=== PATIENT | female | born 1940 | race Caucasian/White ===

== ENCOUNTER 2023-10-31 10:59 | Outpatient (AMB) | payer BC, SELFPAY ==
--- NOTE | 2023-10-31 11:01 | A.OFFPC_ITS ---
Vital Signs 10/31/23 11:13 Height 5 ft 7 in Weight 143 lb 8 oz BMI 22.5 BP 124/58 L Blood Pressure Location Lt brachial Position Sitting Respiration 12 Pulse 58 Pulse Source Pulse Oximeter Temp 97.3 F Temp Source Oral Pulse Oximetry (%) 95 Oxygen Delivery Method Room Air Intake Visit Reasons: Diarrhea and Fuzzy Head/Mind Intake Note: patient here for new patient visit transferring from [facility] c/o Diarrhea. [employer] Required: No Is last menstrual period known: No Post menopausal: No Patient : No Allergies No Known Allergies Allergy (Verified 10/31/23 11:05) Medication List - Last Reconciled 10/31/23 by Eladia Haji PA-C amlodipine 5 mg PO DAILY donepezil 10 mg PO DAILY escitalopram oxalate 20 mg PO DAILY losartan 50 mg PO DAILY rosuvastatin 5 mg PO DAILY Tobacco use date assessed: 10/31/23 Fall risk assessment: No Falls in past year Last assessed Fall Risk: 10/31/23 Dental Screening Dental Screen Date: 10/31/23 Did you have a dental visit in the last 12 months?: Yes Did you have a dental problem in the last 6 months where you did not have access to dental care?: No Was dental information given to patient?: Patient has dentist HPI Diarrhea and Fuzzy Head/Mind HPI Details Patient is an 83-year-old female with a significant past medical history of hypertension, anxiety, depression, insomnia, hyperlipidemia and dementia [facility]. She was last seen by myself last year at [facility] in April. She is accompanied today by her son and her daughter is present on the phone. GI: She was seen over the winter with complaints of diarrhea. She went to that appointment by herself and normally comes to doctor's appointments with her son. She did have a CT of her abdomen and pelvis at that time which showed sigmoid diverticulosis without evidence of diverticulitis. Her daughter states that the patient is experiencing diarrhea anytime she eats food. Patient states it is occurring about 3-4 x a day . She does have a history of IBS but states that this feels a lot worse. She has had diarrhea on and off for most of her life but never like this. It has been going on now for about 6 or 7 months. She has not changed her diet. Denies any use of antibiotics or travel prior to symptoms starting. This affects her quality of life because she is unable to leave the house. She takes Imodium which does seem to help somewhat. No weight changes. No blood in the stool or mucus in the stool. No nausea, vomiting or change in appetite. No fevers or chills. No pain in the abdomen. She does get cramping associated with the diarrhea. No incontinence. Last colonoscopy she believes it was at the age of 71. Neuro: She is on Aricept 10 mg. 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 She is frustrated because she feels ?fuzzy?. She has been a very active, independent woman for her life and this has become very frustrating to her that she can not recall certain things. Her family would like her to have a 2nd opinion. She has not had any gait changes. She is not falling. She has been complaining of headaches since June. She has been taking Tylenol almost every day because of the headaches. They do not wake her up from sleep and she is sleeping okay but they occur as the day goes on. It is across her head on both sides. She does intermittently get vision changes in his not sure if it is related to the headaches are not. States that she will get black spots in her vision. It will last long. She has not seen the eye doctor in over her son is going to book her an appointment. She denies any numbness, tingling or weakness. She still walking daily and [place] much as she can. -she is unsure of the diagnosis of demen tia because when she was diagnosed with this she did have a lot going on mentally. She had a lot of losses in her life and was relatively isolated at her house. She is normally social and most of her friends live in [place]. Psych: She is on Lexapro 20 mg and does feel that this is helpful with some stress. CV: Her blood pressure today in the office is 124/58. She is currently on amlodipine 5 mg and losartan 50 mg. Cholesterol is managed with Crestor 5 mg. Derm: She states that she has poison darius spreading up her arms and on her legs. She was doing yd work a week ago when she developed this. [facility] Medical History (Updated 10/31/23 @ 13:41 by Eladia Haji PA-C) IBS (irritable bowel syndrome) Incontinence High cholesterol HTN (hypertension) Surgical History (Updated 10/31/23 @ 11:21 by Alyce Raygoza) H/O: hysterectomy Family History (Updated 10/31/23 @ 11:22 by Alyce Raygoza) Maternal Grandfather FH: mental illness Mother High blood pressure High cholesterol Father High blood pressure High cholesterol Social History Housing: House Patient Tobacco Use Status: Never used Tobacco e-Cigarette/Vaping Use: Never Used Second Hand Smoke Exposure: No service: No Current occupational status: retired Current occupational exposures/hazards: No Cognitive needs: No Hearing needs: No Vision needs: No Questionnaire PHQ-9 Over the last 2 weeks, how often have you been bothered by any of the following problems? 1. Little interest or pleasure in doing things: not at all 2. Feeling down, depressed, or hopeless: not at all 3. Trouble falling or staying asleep, or sleeping too much: not at all 4. Feeling tired or having little energy: not at all 5. Poor appetite or overeating: not at all 6. Feeling bad about yourself - or that you are a failure or have let yourself or your family down: not at all 7. Trouble concentrating on things, such as reading the newspaper or watching television: not at all 8. Moving or speaking so slowly that other people could have noticed. Or the opposite - being so fidgety or restless that you have been moving around a lot more than usual: not at all 9. Thoughts that you would be better off or of hurting yourself in some way: not at all Total score: 0 Depression Screening Done: Yes 58243 - PHQ-9 Billing: Yes Source: Developed by Drs. Agustin Michaud, Sheela Black, Leoncio Tee and colleagues, with an educational dorene from [employer]. Thrive Questionnaire Date Thrive assessed: 10/31/23 I am a: Patient What is your living situation today?: I have a steady place to live Within the past 12 months, did the food you bought not last and you didn't have the money to get more?: Never true Within the past 12 months, did you worry whether your food would run out before you got money to buy more?: Never true Do you have trouble paying for medicines?: No Do you have trouble getting transportation to medical appointments?: No Do you have trouble paying your heating and electricity bill?: No Do you have trouble taking care of your child, family member or friend?: No Do you have trouble with day-to-day activities such as bathing, preparing meals, shopping, managing finances, etc.?: No Are you currently unemployed and looking for a job?: No Are you interested in more education?: No Please select the resources that you would like help with: None Currently or been in a relationship where the following occur: No concerns reported THRIVE Score: 0 AUDIT C Alcohol Use Questionnaire (AUDIT-C) 1. How often do you have a drink containing alcohol?: 2-3 times a week 2. How many drinks containing alcohol do you have on a typical day when you are drinking?: 1 or 2 3. How often do you have six or more drinks on one occasion?: Never Total Score: 3 Score Reviewed/Action Taken: Yes HERLINDA-7 AMB Questionnaire HERLINDA-7 Date HERLINDA - 7 assessed: 10/31/23 Feeling nervous, anxious, or on edge: 0 = Not at all Not being able to stop or control worryin = Not at all Worrying too much about different things: 0 = Not at all Trouble relaxin = Several days Being so restless that it is hard to sit still: 0 = Not at all Becoming easily annoyed or irritable: 0 = Not at all Feeling afraid as if something awful might happen: 0 = Not at all Total HERLINDA-7 score (0-4 normal; 5-9 mild; 10-14 moderate; 15-21 severe): 1 Source: Developed by Drs. Agustin Michaud, Sheela Black, Leoncio Tee and colleagues, with an educational dorene from [employer]. HERLINDA-7 Assessment Billing HERLINDA-7 Assessment Tool: HERLINDA-7 Assessment 77675 Physical exam (Primary Care) Vital Signs: Last Vital Signs Temp 97.3 F 10/31/23 11:13 Pulse 58 10/31/23 11:13 Resp 12 10/31/23 11:13 BP 124/58 L 10/31/23 11:13 Pulse Ox 95 10/31/23 11:13 Oxygen Delivery Method Room Air 10/31/23 11:13 BMI result Body Mass Index 22.5 Tobacco/Smoking Status: Tobacco use Status Tobacco use date assessed 10/31/23 10/31/23 11:12 Patient Tobacco Use Status Never used Tobacco 10/31/23 11:12 e-Cigarette/Vaping Use Never Used 10/31/23 11:12 Currently or been in a relationship where the following occur: No concerns reported Const Orientation/consciousness: patient oriented x3 HENMT Ears: hearing grossly normal bilaterally Neck Thyroid: Thyroid normal Lymphatic: no lymphadenopathy noted Resp Auscultation: clear to auscultation bilaterally Cardio Rate: regular rate Rhythm: regular rhythm Heart sounds: S1 normal heart sound present and S2 normal heart sound present GI Inspection: Yes normal to inspection Palpation (GI): Soft to palpation and Other GI palpation findings present (nontender, no cva tenderness) Auscultation: normoactive bowel sounds Rectal Exam - Female: deferred Skin General skin exam: no rashes or lesions noted Neuro General: patient oriented x3, gait normal and no focal motor deficits Assessment and Plan Assessment & Plan (1) HTN (hypertension): Code(s): I10 - Essential (primary) hypertension Qualifiers: Hypertension type: primary hypertension Qualified Code(s): I10 - Essential (primary) hypertension Plan: Continue current regimen (2) Hyperlipidemia: Code(s): E78.5 - Hyperlipidemia, unspecified Qualifiers: Hyperlipidemia type: mixed hyperlipidemia Qualified Code(s): E78.2 - Mixed hyperlipidemia Plan: Continue current regimen (3) Anxiety with depression: Code(s): F41.8 - Other specified anxiety disorders Plan: Controlled. Continue current regimen (4) Insomnia: Code(s): G47.00 - Insomnia, unspecified Qualifiers: Insomnia type: unspecified Qualified Code(s): G47.00 - Insomnia, unspecified Plan: We will start amitriptyline. Discussed risks and benefits and adverse effects of this medication. Follow up in 3-4 weeks to be reassessed. Sooner if needed. (5) Memory changes: Code(s): R41.3 - Other amnesia Plan: We will refer to [facility] for a 2nd opinion. Continue Aricept. Has a di agnosis of mixed dementia but does not feel that this is necessarily true. She did have labs, MRI and a did see a therapist to help tease out possible stress related memory changes at time of dx. Labs ordered today. We will follow up pending test results. (6) New persistent daily headache: Code(s): G44.52 - New daily persistent headache (NDPH) Plan: MRI ordered. Advised to see Ophthalmology. Amitriptyline ordered (7) Diarrhea: Code(s): R19.7 - Diarrhea, unspecified Plan: advised possible elimination diet. Labs ordered today. Abdominal exam is benign. Reviewed CT from [facility]. I have referred her to Gastroenterology. Advised to replace her electrolytes with Pedialyte 1 x daily. (8) Vision changes: Code(s): H53.9 - Unspecified visual disturbance Plan: Advised to see Ophthalmology. Carotid ultrasound ordered. Plan 70 minutes was spent in [id number] time today discussing the list of her concerns, ongoing medical conditions and plan. Orders: Orders Complete Blood Count Auto Diff Today E78.5 - Hyperlipidemia, unspecified, F03.90 - Unspecified dementia, unspecified severity, without behavioral disturbance, psychotic disturbance, mood disturbance, and anxiety, F41.8 - Other specified anxiety disorders, G47.00 - Insomnia, unspecified, I10 - Essential (primary) hypertension Lipid Panel Today E78.5 - Hyperlipidemia, unspecified, F03.90 - Unspecified dementia, unspecified severity, without behavioral disturbance, psychotic disturbance, mood disturbance, and anxiety, F41.8 - Other specified anxiety disorders, G47.00 - Insomnia, unspecified, I10 - Essential (primary) hypertension TSH reflex Free T4 Today E78.5 - Hyperlipidemia, unspecified, F03.90 - Unspecified dementia, unspecified severity, without behavioral disturbance, psychotic disturbance, mood disturbance, and anxiety, F41.8 - Other specified anxiety disorders, G47.00 - Insomnia, unspecified, I10 - Essential (primary) hypertension MR head/brain wo con Today G44.52 - New daily persistent headache (NDPH), R41.3 - Other amnesia C Reactive Protein Today R19.7 - Diarrhea, unspecified OBSX3 Today R19.7 - Diarrhea, unspecified US carotid duplex BI Today G44.52 - New daily persistent headache (NDPH), H53.9 - Unspecified visual disturbance, R41.3 - Other amnesia CDiff Gene PCR Today R19.7 - Diarrhea, unspecified [facility]. Panel Fast Today E78.5 - Hyperlipidemia, unspecified, F03.90 - Unspecified dementia, unspecified severity, without behavioral disturbance, psychotic disturbance, mood disturbance, and anxiety, F41.8 - Other specified anxiety disorders, G47.00 - Insomnia, unspecified, I10 - Essential (primary) hypertension UA CC w/rflx Micro + Cult Today E78.5 - Hyperlipidemia, unspecified, F03.90 - Unspecified dementia, unspecified severity, without behavioral disturbance, psychotic disturbance, mood disturbance, and anxiety, F41.8 - Other specified anxiety disorders, G47.00 - Insomnia, unspecified, I10 - Essential (primary) hypertension Lyme IgG/IgM w/reflex to WB Today E78.5 - Hyperlipidemia, unspecified, F03.90 - Unspecified dementia, unspecified severity, without behavioral disturbance, psychotic disturbance, mood disturbance, and anxiety, F41.8 - Other specified anxiety disorders, G47.00 - Insomnia, unspecified, I10 - Essential (primary) hypertension Vitamin B12 and Folate Today E78.5 - Hyperlipidemia, unspecified, F03.90 - Unspecified dementia, unspecified severity, without behavioral disturbance, psychotic disturbance, mood disturbance, and anxiety, F41.8 - Other specified anxiety disorders, G47.00 - Insomnia, unspecified, I10 - Essential (primary) hypertension Magnesium Today E78.5 - Hyperlipidemia, unspecified, F03.90 - Unspecified dementia, unspecified severity, without behavioral disturbance, psychotic disturbance, mood disturbance, and anxiety, F41.8 - Other specified anxiety disorders, G47.00 - Insomnia, unspecified, I10 - Essential (primary) hypertension Calprotectin, Fecal Today R19.7 - Diarrhea, unspecified Erythrocyte Sedimentation Rate Today R19.7 - Diarrhea, unspecified Referrals Gastroenterology Referral R19.7 - Diarrhea, unspecified Neurology Referral G44.52 - New daily persistent headache (NDPH), R41.3 - Other amnesia Medications: New triamcinolone acetonide 0.025% 1 appl topical BID 14 days 80 grams 2RF amitriptyline 10 mg PO BEDTIME 90 tabs 0RF methylprednisolone (Medrol (Nav)) PO PER PKG DIR for 6 days 21 ea 0RF Coding Level of Care Code Est Pt Level 5 (48684) Complex EM visit Add On G2211 Diagnoses Primary hypertension I10 Hypertension type: primary hypertension Mixed hyperlipidemia E78.2 Hyperlipidemia type: mixed hyperlipidemia Anxiety with depression F41.8 Insomnia, unspecified type G47.00 Insomnia type: unspecified Memory changes R41.3 New persistent daily headache G44.52 Diarrhea R19.7 Vision changes H53.9 Additional Codes HERLINDA-7 Assessment Billing - HERLINDA-7 Assessment Tool: HERLINDA-7 Assessment [id number] ([id number]) Time Spent (min) 70
[2023-10-31 11:13] VITALS: BP 124/58; PULSE 58; RESP 12; TEMP 36.3; O2SAT 95; BMI 22.5
== END 2023-10-31 12:09 | disposition home or self-care (01) ==
PROVIDERS: PCP Physician Assistant; Visit Provider Physician Assistant
DX: I10 Essential (primary) hypertension (principal); E78.2 Mixed hyperlipidemia; F41.8 Other specified anxiety disorders; G47.00 Insomnia, unspecified; R41.3 Other amnesia; G44.52 New daily persistent headache (NDPH); R19.7 Diarrhea, unspecified; H53.9 Unspecified visual disturbance
CPT/HCPCS: 99215

== ENCOUNTER 2023-10-31 12:39 | Outpatient (REF) | payer BC, SELFPAY ==
[2023-10-31 14:13] LABS: MANUAL DIFF FLAG NO
[2023-10-31 14:18] LABS: Appearance Urine Clear; Color Urine Yellow; Glucose Urine UA Negative (Negative); Leukocyte Esterase Urine Negative (Negative); Nitrite Urine Negative (Negative); PH 6.5 (5.0-9.0); Urine Blood Negative (Negative); Urine Ketones Negative (Negative); Urine Protein Negative (Neg-Trace)
[2023-10-31 14:25] LABS: Basophils Absolute Auto 0.1 X10*3/uL (0.0-0.2); Basophils Percent Auto 0.9 % (0-2); Eosinophils Absolute Auto 0.4 X10*3/uL (0.0-0.4); Eosinophils Percent Auto 5.5 % (0-4); Hemoglobin 13.3 g/dl (12.0-16.0); Imm Gran Abs Auto 0.02 X10*3/uL (0.00-0.03); Imm Gran Pct Auto 0.3 % (0.0-0.4); Lymphocytes Absolute Auto 1.5 X10*3/uL (1.2-4.9); Mean Corpuscular HGB Conc 33.3 g/dl (31.0-35.0); Mean Corpuscular Hemoglobin 30.2 pg (27.0-33.0); Mean Corpuscular Volume 90.7 fL (80.0-98.0); Mean Platelet Volume 9.7 fL (9.4-12.3); Monocytes Absolute Auto 0.7 X10*3/uL (0.1-1.2); Monocytes Percent Auto 8.5 % (2-11); Neutrophils Absolute Auto 5.1 x10*3/uL (2.0-8.3); Neutrophils Percent Auto 65.8 % (45-73); Platelet Count 359 X10*3/uL (160-400); Red Blood Count 4.41 X10*6/uL (4.20-5.50); Red Cell Distribution Width 12.5 % (11.0-16.0); White Blood Count 7.7 X10*3/uL (4.8-10.8)
[2023-10-31 14:57] LABS: Alanine Aminotransferase 23 U/L (0-31); Albumin Level 4.5 g/dL (3.5-5.0); Alkaline Phosphatase 78 U/L (39-117); Anion Gap 13 (12-20); Aspartate Amino Transferase 30 U/L (5-31); Bilirubin Total 0.8 mg/dL (0.0-1.0); Blood Urea Nitrogen 14 mg/dL (9-16); C Reactive Protein < 0.10 mg/dL (< or = 0.50); Carbon Dioxide 27 mmol/L (22-29); Chloride 99 mmol/L (96-108); Cholesterol 197 mg/dL (<200); Estimated Glomerular Filt Rate 52; Glucose Fasting 95 mg/dL (60-99); HDL Cholesterol 64 mg/dL (>40); LDL Cholesterol Calculated 99 mg/dL (<100); Magnesium 2.2 mg/dL (1.6-2.6); Potassium 4.2 mmol/L (3.3-5.1); Sodium 135 mmol/L (135-145); Total Protein 7.9 g/dL (6.5-8.0); Triglycerides 172 mg/dL (<150)
[2023-10-31 15:04] LABS: Erythrocyte Sedimentation Rate 12 MM/HR (0-20)
[2023-10-31 15:12] LABS: TSH reflex Free T4 2.71 uIU/mL (0.32-4.0)
[2023-10-31 15:27] LABS: Folate 11.9 ng/mL (> or = 4.0); Vitamin B12 932 pg/mL (200-900)
[2023-11-01 18:24] LABS: Lyme Abs Screen <0.90 index
== END 2023-10-31 12:40 | disposition home or self-care (01) ==
LOC: HO.WFDLDS 12:39
PROVIDERS: Visit Provider Physician Assistant
DX: G47.00 Insomnia, unspecified (principal); F41.8 Other specified anxiety disorders; F03.90 Unspecified dementia, unspecified severity, without behavioral disturbance, psychotic disturbance, mood disturbance, and anxiety; E78.5 Hyperlipidemia, unspecified; I10 Essential (primary) hypertension; R19.7 Diarrhea, unspecified
CPT/HCPCS: 36415; 80053; 80061; 81003; 82607; 82746; 83735; 84443; 85025; 85652; 86140; 86617; 86618

== ENCOUNTER 2023-11-12 17:25 | Outpatient (REF) | payer BC, SELFPAY ==
[2023-11-12 17:49] LABS: OBS Int Ctl Valid YES; OBS1 NEGATIVE (NEGATIVE)
[2023-11-12 18:24] LABS: CDiff Gene PCR NEGATIVE (Negative)
[2023-11-18 22:13] LABS: Calprotectin, Fecal 9 mcg/g
== END 2023-11-12 17:26 | disposition home or self-care (01) ==
LOC: HO.LNP 17:25
PROVIDERS: Visit Provider Physician Assistant
DX: R19.7 Diarrhea, unspecified (principal)
CPT/HCPCS: 82272; 83993; 87493

== ENCOUNTER 2023-11-14 11:17 | Outpatient (REF) | payer BC, SELFPAY ==
--- NOTE | ~2023-11-14 | US_ITS ---
EXAMINATION: US EXTRACRANIAL CAROTID DUPLEX, BILATERAL CLINICAL INFORMATION: Headaches COMPARISON: None available. TECHNIQUE: Real-time ultrasound and Doppler techniques (integrating B-mode 2-D vascular images, Doppler spectral analysis and color-flow Doppler imaging) were utilized to interrogate the extracranial carotid arteries, the vertebral arteries and proximal subclavian arteries bilaterally. The degree of stenosis is determined by criteria similar to NASCET. FINDINGS: Right Side: 1. There is mild atherosclerotic plaque seen in the bifurcation/proximal ICA region. 2. The common carotid artery PSV proximally is 85 cm/s and distally 67.6 cm/s. 3. The proximal internal carotid artery velocities are 54.2 cm/s systolic and 10.6 cm/s diastolic. 4. The proximal external carotid artery PSV is 79.2 cm/s. 5. The vertebral artery shows antegrade flow. 6. The subclavian artery waveforms are normal. Left Side: 1. There is no significant atherosclerotic plaque seen in the bifurcation/proximal ICA region. 2. The common carotid artery PSV proximally is 82.7 cm/s and distally 78.6 cm/s. 3. The proximal internal carotid artery velocities are 55.8 cm/s systolic and 11.4 cm/s diastolic. 4. The proximal external carotid artery PSV is 72.7 cm/s. 5. The vertebral artery shows antegrade flow. 6. The subclavian artery waveforms are normal. US/US carotid duplex BI IMPRESSION: 1. RIGHT: Minimal, non-hemodynamically significant stenosis of the proximal right internal carotid artery corresponding to a 0-49% stenosis by velocity criteria. 2. LEFT: Normal left internal carotid artery without atherosclerotic plaque or hemodynamically significant stenosis. Electronically signed by: Cooper Romero MD 11/18/2023 04:18 PM EDT
== END 2023-11-14 11:18 | disposition home or self-care (01) ==
LOC: HO.US 11:17
PROVIDERS: PCP Physician Assistant; Visit Provider Physician Assistant
DX: G44.52 New daily persistent headache (NDPH) (principal); H53.9 Unspecified visual disturbance; R41.3 Other amnesia; I65.21 Occlusion and stenosis of right carotid artery
CPT/HCPCS: 93880

== ENCOUNTER 2023-11-28 10:18 | Outpatient (AMB) | payer BC, SELFPAY ==
--- NOTE | 2023-11-28 10:20 | MHC.PC.OV ---
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 Neuro: Was diagnosed with dementia and is going for a 2nd opinion to [place] in February. She is currently on Aricept and an SSRI. She has been experiencing some headaches but does feel that they are better since starting the amitriptyline. Her MRI is scheduled for 12/03. Psych: Sleep is improved with the amitriptyline. She is still on the Lexapro 20 mg and feels that this is effective. CV: She is currently on losartan 50 mg, amlodipine 5 mg and her blood pressure today in the office is 126/60. Cholesterol is controlled with Crestor 5 mg. GI: Still experiences diarrhea. Labs were overall reassuring. Has an appointment with GI in December. Is using the Imodium as needed. [facility] Medical History (Updated 10/31/23 @ 13:41 by Eladia Haji PA-C) IBS (irritable bowel syndrome) Incontinence High cholesterol HTN (hypertension) Surgical History (Updated 10/31/23 @ 11:21 by Alyce Raygoza) H/O: hysterectomy Family History (Updated 10/31/23 @ 11:22 by Alyce Raygoza) Maternal Grandfather FH: mental illness Mother High blood pressure High cholesterol Father High blood pressure High cholesterol Social History Housing: House Patient Tobacco Use Status: Never used Tobacco e-Cigarette/Vaping Use: Never Used Second Hand Smoke Exposure: No service: No Current occupational status: retired Current occupational exposures/hazards: No Cognitive needs: No Hearing needs: No Vision needs: No Questionnaire PHQ-9 Over the last 2 weeks, how often have you been bothered by any of the following problems? 1. Little interest or pleasure in doing things: not at all 2. Feeling down, depressed, or hopeless: not at all 3. Trouble falling or staying asleep, or sleeping too much: not at all 4. Feeling tired or having little energy: not at all 5. Poor appetite or overeating: not at all 6. Feeling bad about yourself - or that you are a failure or have let yourself or your family down: not at all 7. Trouble concentrating on things, such as reading the newspaper or watching television: not at all 8. Moving or speaking so slowly that other people could have noticed. Or the opposite - being so fidgety or restless that you have been moving around a lot more than usual: not at all 9. Thoughts that you would be better off or of hurting yourself in some way: not at all Total score: 0 Source: Developed by Drs. Agustin Michaud, Sheela Black, Leoncio Tee and colleagues, with an educational dorene from [employer]. Thrive Questionnaire Date Thrive assessed: 10/31/23 I am a: Patient What is your living situation today?: I have a steady place to live Within the past 12 months, did the food you bought not last and you didn't have the money to get more?: Never true Within the past 12 months, did you worry whether your food would run out before you got money to buy more?: Never true Do you have trouble paying for medicines?: No Do you have trouble getting transportation to medical appointments?: No Do you have trouble paying your heating and electricity bill?: No Do you have trouble taking care of your child, family member or friend?: No Do you have trouble with day-to-day activities such as bathing, preparing meals, shopping, managing finances, etc.?: No Are you currently unemployed and looking for a job?: No Are you interested in more education?: No Please select the resources that you would like help with: None Currently or been in a relationship where the following occur: No concerns reported THRIVE Score: 0 AUDIT C Alcohol Use Questionnaire (AUDIT-C) 1. How often do you have a drink containing alcohol?: Never Total Score: 0 HERLINDA-7 AMB Questionnaire HERLINDA-7 Date HERLINDA - 7 assessed: 10/31/23 Feeling nervous, anxious, or on edge: 0 = Not at all Not being able to stop or control worryin = Not at all Worrying too much about different things: 0 = Not at all Trouble relaxin = Not at all Being so restless that it is hard to sit still: 0 = Not at all Becoming easily annoyed or irritable: 0 = Not at all Feeling afraid as if something awful might happen: 0 = Not at all Total HERLINDA-7 score (0-4 normal; 5-9 mild; 10-14 moderate; 15-21 severe): 0 Source: Developed by Drs. Agustin Michaud, Sheela Black, Leoncio Tee and colleagues, with an educational dorene from [employer]. Physical exam (Primary Care) Vital Signs: Last Vital Signs Pulse 87 11/28/23 10:29 Resp 14 11/28/23 10:29 BP 126/60 11/28/23 10:29 Pulse Ox 97 11/28/23 10:29 Oxygen Delivery Method Room Air 11/28/23 10:29 BMI result Body Mass Index 22.9 Tobacco/Smoking Status: Tobacco use Status Tobacco use date assessed 10/31/23 11/28/23 10:21 Patient Tobacco Use Status Never used Tobacco 11/28/23 10:21 e-Cigarette/Vaping Use Never Used 11/28/23 10:21 PHQ-9: PHQ-9 Score PHQ-9: Total score 0 11/28/23 10:21 Thrive Assessment: Date of Thrive Assessment Date Thrive assessed 10/31/23 11/28/23 10:21 Currently or been in a relationship where the following occur: No concerns reported Const Orientation/consciousness: patient oriented x3 HENMT Ears: hearing grossly normal bilaterally Neck Thyroid: Thyroid normal Lymphatic: no lymphadenopathy noted Resp Auscultation: clear to auscultation bilaterally Cardio Rate: regular rate Rhythm: regular rhythm Heart sounds: S1 normal heart sound present and S2 normal heart sound present GI Inspection: Yes normal to inspection Palpation (GI): Soft to palpation and Other GI palpation findings present (nontender, no cva tenderness) Auscultation: normoactive bowel sounds Rectal Exam - Female: deferred Skin General skin exam: no rashes or lesions noted Neuro General: patient oriented x3, gait normal and no focal motor deficits Assessment and Plan Assessment & Plan (1) Dementia: Code(s): F03.90 - Unspecified dementia, unspecified severity, without behavioral disturbance, psychotic disturbance, mood disturbance, and anxiety Plan: Continue on Aricept. Has follow up arranged in [place]. (2) HTN (hypertension): Code(s): I10 - Essential (primary) hypertension Qualifiers: Hypertension type: primary hypertension Qualified Code(s): I10 - Essential (primary) hypertension Plan: WNL. Continue current regimen (3) Anxiety with depression: Code(s): F41.8 - Other specified anxiety disorders Plan: Stable. Continue with the amitriptyline and Lexapro. (4) Diarrhea: Code(s): R19.7 - Diarrhea, unspecified Plan: Has an appointment with GI. Medications: New cetirizine (Zyrtec) 10 mg PO DAILY PRN 90 tabs 2RF allergy symptoms albuterol sulfate 90 mcg/actuation 2 puffs inhalation Q6H PRN 8.5 grams 1RF shortness of breath or wheezing Coding Level of Care Code Est Pt Level 4 (13228) Diagnoses Dementia F03.90 Primary hypertension I10 Hypertension type: primary hypertension Anxiety with depression F41.8 Diarrhea R19.7
[2023-11-28 10:29] VITALS: BP 126/60; PULSE 87; RESP 14; O2SAT 97; BMI 22.9
== END 2023-11-28 13:14 | disposition home or self-care (01) ==
PROVIDERS: PCP Physician Assistant; Visit Provider Physician Assistant
DX: F03.90 Unspecified dementia, unspecified severity, without behavioral disturbance, psychotic disturbance, mood disturbance, and anxiety (principal); I10 Essential (primary) hypertension; F41.8 Other specified anxiety disorders; R19.7 Diarrhea, unspecified

== ENCOUNTER → 2023-11-28 10:18 | Outpatient (BNVA) | payer BC, SELFPAY | PROVIDERS: PCP Physician Assistant; Visit Provider Physician Assistant | DX: F03.90 Unspecified dementia, unspecified severity, without behavioral disturbance, psychotic disturbance, mood disturbance, and anxiety (principal); I10 Essential (primary) hypertension; F41.8 Other specified anxiety disorders; R19.7 Diarrhea, unspecified; Z79.899 Other long term (current) drug therapy | CPT/HCPCS: 96127 ==

== ENCOUNTER 2023-12-04 07:54 | Outpatient (REF) | payer BC, SELFPAY ==
--- NOTE | ~2023-12-04 | MR_ITS ---
EXAMINATION: MR BRAIN WITHOUT CONTRAST CLINICAL INFORMATION: Analgesia COMPARISON: None available. TECHNIQUE: MRI of the brain was obtained using routine sequences without contrast. FINDINGS: Ventricles, sulci and cisterns are dilated. Numerous patchy and focal T2 hyperintense lesions are seen in bilateral frontal and parietal subcortical and deep white matters, right posterior temporal subcortical and deep white matter. No focal cerebral, brainstem or cerebellar lesions with abnormal signal can be seen. Diffusion weighted images show no abnormal regional decrease in diffusion. Normal flow voids of major intracerebral blood vessels are seen in the visualized portion. The pituitary gland is normal. Optic chiasm is not displaced. Cerebellar tonsils position is normal. A round T2 hyperintense polypoid mucosal lesion measuring 1.0 cm in diameter is seen attached to lower anterior wall of right maxillary sinus. MR/MR head/brain wo con IMPRESSION: 1. Age-related cerebral atrophy and ventriculomegaly. 2. Extensive bilateral frontal and parietal, right posterior temporal white matter lesions are present. Findings could, represent extensive ischemic white matter lesions due to microangiopathy or multifocal demyelinating disease or leukoencephalopathy. 3. No acute cerebral infarction is seen. 4. No evidence of space occupying mass lesion could be found. 5. No evidence of intracranial hemorrhage. 6. Anterior inferior right maxillary sinus mucous retention cyst or mucosal polyp is present. Electronically signed by: Migue Eli MD 01/01/2024 10:19 AM EDT
== END 2023-12-04 07:55 | disposition home or self-care (01) ==
LOC: HO.MRI 07:54
PROVIDERS: PCP Physician Assistant; Visit Provider Physician Assistant
DX: R41.3 Other amnesia (principal); G44.52 New daily persistent headache (NDPH)
CPT/HCPCS: 70551

== ENCOUNTER 2024-03-05 13:11 | Outpatient (AMB) | payer BC, SELFPAY ==
--- NOTE | 2024-03-05 11:55 | MHC.PC.OV ---
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: No Allergies No Known Allergies Allergy (Verified 03/05/24 13:17) Medication List - Last Reconciled 03/05/24 by Eladia Haji PA-C albuterol sulfate 90 mcg/actuation 2 puffs inhalation Q6H PRN amitriptyline 10 mg PO BEDTIME amlodipine 5 mg PO DAILY cetirizine (Zyrtec) 10 mg PO DAILY PRN donepezil 10 mg PO DAILY escitalopram oxalate 20 mg PO DAILY losartan 50 mg PO DAILY memantine (Namenda XR) , rosuvastatin 5 mg PO DAILY Tobacco use date assessed: 10/31/23 Dental Screening Dental Screen Date: 10/31/23 HPI BAKER BISCUIT // Est Care HPI Details Patient is an 83-year-old female who presents today for a follow up. No acute concerns today. Neuro: Was diagnosed with dementia and had a second opinion at [facility] (in [place]). She is currently on Aricept, recently started on namenda and an SSRI. She has been experiencing some headaches but does feel that they are better since starting the amitriptyline. Psych: Sleep is improved with the amitriptyline. She is still on the Lexapro 20 mg and feels that this is effective. CV: She is currently on losartan 50 mg, amlodipine 5 mg and her blood pressure today in the office is 122/60. Cholesterol is controlled with Crestor 5 mg. GI: Still experiences diarrhea. Labs were overall reassuring. Has an appointment with GI in December. Is using the Imodium as needed. Due for flu shot and will get this. [facility] Medical History (Updated 10/31/23 @ 13:41 by Eladia Haji PA-C) IBS (irritable bowel syndrome) Incontinence High cholesterol HTN (hypertension) Surgical History H/O: hysterectomy Family History Maternal Grandfather FH: mental illness Mother High blood pressure High cholesterol Father High blood pressure High cholesterol Social History (Updated 03/05/24 @ 13:23 by Cha Gifford CMA) Housing: House Alcohol intake: current Patient Tobacco Use Status: Never used Tobacco e-Cigarette/Vaping Use: Never Used Second Hand Smoke Exposure: No Use of substances other than those prescribed or required for medical reasons: No service: No Current occupational status: retired Current occupational exposures/hazards: No Cognitive needs: No Hearing needs: No Vision needs: No Questionnaire Thrive Questionnaire Date Thrive assessed: 10/31/23 HERLINDA-7 AMB Questionnaire HERLINDA-7 Date HERLINDA - 7 assessed: 10/31/23 Source: Developed by Drs. Agustin Michaud, Sheela Black, Leoncio Tee and colleagues, with an educational dorene from [employer]. Physical exam (Primary Care) Vital Signs: Last Vital Signs Pulse 68 03/05/24 13:22 BP 122/60 03/05/24 13:22 Pulse Ox 99 03/05/24 13:22 Oxygen Delivery Method Room Air 03/05/24 13:22 BMI result Body Mass Index 23.8 Tobacco/Smoking Status: Tobacco use Status Tobacco use date assessed 10/31/23 03/05/24 11:56 Patient Tobacco Use Status Never used Tobacco 03/05/24 13:23 e-Cigarette/Vaping Use Never Used 03/05/24 13:23 Thrive Assessment: Date of Thrive Assessment Date Thrive assessed 10/31/23 03/05/24 11:56 Const Orientation/consciousness: patient oriented x3 HENMT Ears: hearing grossly normal bilaterally Neck Thyroid: Thyroid normal Lymphatic: no lymphadenopathy noted Resp Auscultation: clear to auscultation bilaterally Cardio Rate: regular rate Rhythm: regular rhythm Heart sounds: S1 normal heart sound present and S2 normal heart sound present GI Inspection: Yes normal to inspection Palpation (GI): Soft to palpation and Other GI palpation findings present (nontender, no cva tenderness) Auscultation: normoactive bowel sounds Rectal Exam - Female: deferred Skin General skin exam: no rashes or lesions noted Neuro General: patient oriented x3, gait normal and no focal motor deficits Results Reviewed Results Reviewed: Laboratory Tests 10/31/23 11/12/23 12:42 12:15 Sodium 135 Potassium 4.2 Chloride 99 Carbon Dioxide 27 Anion Gap 13 BUN 14 Creatinine 1.02 Estimated GFR 52 Fasting Glucose 95 Calcium 10.0 Magnesium 2.2 AST 30 ALT 23 C-Reactive Protein < 0.10 Triglycerides 172 H Cholesterol 197 LDL Cholesterol, Calc 99 HDL Cholesterol 64 TSH 2.71 C. difficile Tox B Gene NEGATIVE MR/MR head/brain wo con IMPRESSION: 1. Age-related cerebral atrophy and ventriculomegaly. 2. Extensive bilateral frontal and parietal, right posterior temporal white matter lesions are present. Findings could, represent extensive ischemic white matter lesions due to microangiopathy or multifocal demyelinating disease or leukoencephalopathy. 3. No acute cerebral infarction is seen. 4. No evidence of space occupying mass lesion could be found. 5. No evidence of intracranial hemorrhage. 6. Anterior inferior right maxillary sinus mucous retention cyst or mucosal polyp is present. Coding Level of Care Code Est Pt Level 4 (04892) Complex EM visit Add On G2211 Diagnoses Dementia F03.90 Primary hypertension I10 Hypertension type: primary hypertension Mixed hyperlipidemia E78.2 Hyperlipidemia type: mixed hyperlipidemia Assessment & Plan Assessment & Plan (1) Dementia: Code(s): F03.90 - Unspecified dementia, unspecified severity, without behavioral disturbance, psychotic disturbance, mood disturbance, and anxiety Category: Medical Plan: stable (2) HTN (hypertension): Code(s): I10 - Essential (primary) hypertension Category: Medical Qualifiers: Hypertension type: primary hypertension Qualified Code(s): I10 - Essential (primary) hypertension Plan: wnl continue current plan (3) Hyperlipidemia: Code(s): E78.5 - Hyperlipidemia, unspecified Category: Medical Qualifiers: Hyperlipidemia type: mixed hyperlipidemia Qualified Code(s): E78.2 - Mixed hyperlipidemia Plan: well controlled Orders: Orders Complete Blood Count Auto Diff Today E78.2 - Mixed hyperlipidemia, F03.90 - Unspecified dementia, unspecified severity, without behavioral disturbance, psychotic disturbance, mood disturbance, and anxiety, I10 - Essential (primary) hypertension Comprehensive [place]. Panel Fast Today E78.2 - Mixed hyperlipidemia, F03.90 - Unspecified dementia, unspecified severity, without behavioral disturbance, psychotic disturbance, mood disturbance, and anxiety, I10 - Essential (primary) hypertension Lipid Panel Today E78.2 - Mixed hyperlipidemia, F03.90 - Unspecified dementia, unspecified severity, without behavioral disturbance, psychotic disturbance, mood disturbance, and anxiety, I10 - Essential (primary) hypertension TSH reflex Free T4 Today E78.2 - Mixed hyperlipidemia, F03.90 - Unspecified dementia, unspecified severity, without behavioral disturbance, psychotic disturbance, mood disturbance, and anxiety, I10 - Essential (primary) hypertension
[2024-03-05 13:22] VITALS: BP 122/60; PULSE 68; O2SAT 99; BMI 23.8
== END 2024-03-05 13:42 | disposition home or self-care (01) ==
PROVIDERS: PCP Physician Assistant; Visit Provider Physician Assistant
DX: F03.90 Unspecified dementia, unspecified severity, without behavioral disturbance, psychotic disturbance, mood disturbance, and anxiety (principal); I10 Essential (primary) hypertension; E78.2 Mixed hyperlipidemia

== ENCOUNTER → 2024-03-05 13:11 | Outpatient (BNVA) | payer BC, SELFPAY | PROVIDERS: PCP Physician Assistant; Visit Provider Physician Assistant ==

== ENCOUNTER 2024-05-06 14:02 | Outpatient (AMB) | payer BC, SELFPAY ==
--- NOTE | 2024-05-06 14:04 | A.OFFPC_ITS ---
Vital Signs 05/06/24 14:11 Height 5 ft 7 in Weight 152 lb 6 oz BMI 23.9 BP 126/52 L Blood Pressure Location Lt brachial Position Sitting Respiration 14 Pulse 57 Pulse Source Pulse Oximeter Pulse Oximetry (%) 97 Oxygen Delivery Method Room Air Intake Visit Reasons: 6 mth f/u labs Intake Note: Six month follow up Allergies No Known Allergies Allergy (Verified 05/06/24 14:07) Medication List - Last Reconciled 05/06/24 by Eladia Haji PA-C albuterol sulfate 90 mcg/actuation 2 puffs inhalation Q6H PRN amitriptyline 10 mg PO BEDTIME amlodipine 5 mg PO DAILY cetirizine (Zyrtec) 10 mg PO DAILY PRN donepezil 10 mg PO DAILY escitalopram oxalate 20 mg PO DAILY losartan 50 mg PO DAILY memantine mg PO rosuvastatin 5 mg PO DAILY Tobacco use date assessed: 10/31/23 Fall risk assessment: No Falls in past year Last assessed Fall Risk: 05/06/24 Dental Screening Dental Screen Date: 10/31/23 HPI 6 mth f/u labs HPI Details Patient is an 83-year-old female who presents today for a follow up. No acute concerns today. Son, Jesse, is on the phone today. Neuro: Was diagnosed with dementia and had a second opinion at [facility] (in [place]). She is currently on Aricept, recently started on namenda and an SSRI. She has been experiencing some headaches but does feel that they are better since starting the amitriptyline. Psych: Sleep is improved with the amitriptyline. She is still on the Lexapro 20 mg and feels that this is effective. CV: She is currently on losartan 50 mg, amlodipine 5 mg and her blood pressure today in the office is 122/60. Cholesterol is controlled with Crestor 5 mg. GI: Still experiences diarrhea. Labs were overall reassuring. Has an appointment with GI in December. She is using the Imodium as needed. [facility] Medical History (Updated 05/06/24 @ 14:12 by Eladia Haji PA-C) Memory changes Vision changes IBS (irritable bowel syndrome) Incontinence High cholesterol HTN (hypertension) Surgical History H/O: hysterectomy Family History Maternal Grandfather FH: mental illness Mother High blood pressure High cholesterol Father High blood pressure High cholesterol Social History (Updated 03/05/24 @ 13:23 by Cha Gifford CMA) Housing: House Alcohol intake: current Patient Tobacco Use Status: Former Tobacco user (quit at 26 years old) Cigarette Packs Per Day: 0.5 Years Smoked: 10 e-Cigarette/Vaping Use: Never Used Second Hand Smoke Exposure: No service: No Current occupational status: retired Current occupational exposures/hazards: No Cognitive needs: No Hearing needs: No Vision needs: No Questionnaire Thrive Questionnaire Date Thrive assessed: 10/31/23 HERLINDA-7 AMB Questionnaire HERLINDA-7 Date HERLINDA - 7 assessed: 10/31/23 Source: Developed by Drs. Agustin Michaud, Sheela Black, Leoncio Tee and colleagues, with an educational dorene from [employer]. Physical exam (Primary Care) Tobacco/Smoking Status: Tobacco use Status Tobacco use date assessed 10/31/23 03/05/24 11:56 Patient Tobacco Use Status Never used Tobacco 03/05/24 13:23 e-Cigarette/Vaping Use Never Used 03/05/24 13:23 Thrive Assessment: Date of Thrive Assessment Date Thrive assessed 10/31/23 03/05/24 11:56 Const Orientation/consciousness: patient oriented x3 HENMT Ears: hearing grossly normal bilaterally Neck Thyroid: Thyroid normal Lymphatic: no lymphadenopathy noted Resp Auscultation: clear to auscultation bilaterally Cardio Rate: regular rate Rhythm: regular rhythm Heart sounds: S1 normal heart sound present and S2 normal heart sound present GI Inspection: Yes normal to inspection Palpation (GI): Soft to palpation and Other GI palpation findings present (nontender, no cva tenderness) Auscultation: normoactive bowel sounds Rectal Exam - Female: deferred Skin General skin exam: no rashes or lesions noted Neuro General: patient oriented x3, gait normal and no focal motor deficits Results Reviewed Results Reviewed: Laboratory Tests 10/31/23 12:42 WBC 7.7 RBC 4.41 Hgb 13.3 Hct 40.0 Plt Count 359 Sodium 135 Potassium 4.2 Chloride 99 Anion Gap 13 BUN 14 Creatinine 1.02 Estimated GFR 52 Fasting Glucose 95 Calcium 10.0 AST 30 ALT 23 Alkaline Phosphatase 78 C-Reactive Protein < 0.10 Triglycerides 172 H Cholesterol 197 LDL Cholesterol, Calc 99 HDL Cholesterol 64 TSH 2.71 Coding Level of Care Code Est Pt Level 4 (04106) Complex EM visit Add On G2211 Diagnoses Mild dementia without behavioral disturbance, psychotic disturbance, mood disturbance, or anxiety, unspecified dementia type F03.A0 Dementia behavioral or psychological symptom: without behavioral, p sychotic, or mood disturbance or anxiety Dementia severity: mild Dementia type: unspecified type Anxiety with depression F41.8 Insomnia, unspecified type G47.00 Insomnia type: unspecified Primary hypertension I10 Hypertension type: primary hypertension Mixed hyperlipidemia E78.2 Hyperlipidemia type: mixed hyperlipidemia Assessment & Plan Assessment & Plan (1) Dementia: Code(s): F03.90 - Unspecified dementia, unspecified severity, without behavioral disturbance, psychotic disturbance, mood disturbance, and anxiety Category: Medical Qualifiers: Dementia behavioral or psychological symptom: without behavioral, psychotic, or mood disturbance or anxiety Dementia severity: mild Dementia type: unspecified type Qualified Code(s): F03.A0 - Unspecified dementia, mild, without behavioral disturbance, psychotic disturbance, mood disturbance, and anxiety Plan: stable. (2) Anxiety with depression: Code(s): F41.8 - Other specified anxiety disorders Category: Medical Plan: on lexapro and doing well with 20 mg (3) Insomnia: Code(s): G47.00 - Insomnia, unspecified Category: Medical Qualifiers: Insomnia type: unspecified Qualified Code(s): G47.00 - Insomnia, unspecified Plan: on amitriptyline and well controlled when she takes it (4) HTN (hypertension): Code(s): I10 - Essential (primary) hypertension Category: Medical Qualifiers: Hypertension type: primary hypertension Qualified Code(s): I10 - Essential (primary) hypertension Plan: on low side of normal will reduce losartan to 25 mg continue norvasc 5 mg (5) Hyperlipidemia: Code(s): E78.5 - Hyperlipidemia, unspecified Category: Medical Qualifiers: Hyperlipidemia type: mixed hyperlipidemia Qualified Code(s): E78.2 - Mixed hyperlipidemia Plan: doing well with crestor 5 mg Medications: New losartan 25 mg PO DAILY 90 tabs 1RF Refilled amlodipine 5 mg PO DAILY 90 tabs 3RF
[2024-05-06 14:11] VITALS: BP 126/52; PULSE 57; RESP 14; O2SAT 97; BMI 23.9
--- OUTSIDE RECORDS SUMMARY | 2024-05-06 16:53 | XMS_ITS | Encounter Summary ---
Author Organization [facility] Address [address] [place] [address] Care Team Providers Care Road Engineer Name Role Phone Evelyn Morales MD Primary Care Provider UnavailSaima Ospina MD Primary Care Provider UnavailEvelyn Aggarwal MD Primary Care Provider Unavaila Andry Pino MD Primary Care Provider Unavailable Fabio Watts MD Primary Care Provider Manuela Parr MD Primary Care Provider Eladia Haji PA-C Primary Care Provider Unavail able Keyana Wick DO Primary Care Provider Unavaila Saima Reyes MD Primary Care Provider Unavaila cait Encounter Details Date Type Department Care Team Description 07/15/2015 Refill Adult Medicine - [address] [address] Evelyn Morales MD Social History Tobacco Use Types Packs/Day Years Used Date Smoking Tobacco: Former Cigarettes 0.3 10 Q uit: 03/04/1969 Smokeless Tobacco: Never Alcohol Use Standard Drinks/Week Comments Yes 0 (1 standard drink = 0.6 oz pur e alcohol) occasional Sex Assigned at Date Recorded Not on file Job Start Date Occupation Industry Not on file Not on file Not on file documented as of this encounter Miscellaneous Notes * Telephone Encounter - Evelyn Morales MD - 07/18/2015 3:33 PM EDT Pt is refusing follow up and not safe to continue medication. SHe has chosen to wean off medication. See phone encounter today * Telephone Encounter - Chantelle Chavez L.P.N. - 07/18/2015 9:10 AM EDT Last seen by pcp for physical 01/06/15 * Telephone Encounter - Chantelle Chavez L.P.N. - 07/18/2015 9:09 AM EDTFrom: Alem Posada To: Evelyn Morales MD Sent: 07/15/2015 7:14 PM EDT Subject: Medication Renewal Request Original authorizing provider: MD Alem Amador would like a refill of the following medications: escitalopram (LEXAPRO) 10 MG tablet [Evelyn Morales MD] Preferred pharmacy: [facility] - [address] Comment: documented in this encounter Plan of Treatment Not on file documented as of this encounter Visit Diagnoses Not on filedocumented in this encounter Care Teams Road Engineer Relationship Specialty Start Date End Date Evelyn Morales MD PCP - General Internal Medicine 06/21/11 02/02/19 Saima Sandoval MD PCP - General Internal Medicine 02/03/19 06/09/20 Evelyn Morales MD PCP - General Internal Medicine 06/10/20 09/11/20 Andry Love MD PCP - General Internal Medicine 09/12/2009/01 Fabio Watts MD [address] [place] [address] PCP - General Internal Medicine 09/14/21 10/31/21 Manuela Parr MD [address] [place] [address] PCP - General Internal Medicine 11/01/21 01/15/22 Eladia Haji PA-C [address] [place] [address] PCP - General Internal Medicine 01/16/22 05/30/22 Keyana Wick DO [address] [place] [address] PCP - General Internal Medicine 05/31/22 10/11/22 Saima Sandoval MD [address] [place] [address] PCP - General Internal Medicine 10/12/22 documented as of this encounter
--- OUTSIDE RECORDS SUMMARY | 2024-05-06 16:53 | XMS_ITS ---
Author Organization [facility] Address [address] [place] [id number] Phone Care Team Providers Care In Store Representative Name Role Phone Noel Tabares MD Unavailable Problems Includes: Active, inactive, and resolved Problems All Visits Onset Date Resolved Date Provider Condition S tatus Abdominal Pain--ruq 04/03/2016 Chantelle Coburn PA-C Active Last Documented On 7 9:37PM ; [facility] Abdominal Pain--llq 03/22/2016 Unknown Chantelle Coburn PA-C Resolved Last Documented On 7 9:38PM ; [facility] Abdominal Pain--rlq 03/22/2016 Chantelle Coburn PA-C Active Last Documented On 7 11:09AM ; [facility] Diarrhea 03/22/2016 Chantelle Coburn PA-C Active Last Documented On 7 11:09AM ; [facility] Hyperlipidemia Mixed 03/21/2016 Chantelle Coburn PA-C Active Last Documented On 7 11:13AM ; [facility] Plan of Treatment Findings Encounter Date Fibrocystic disease of left breast : The patient will be scheduled for mammogram and ultrasound to evaluate her breast. She is counseled self breast exams. She will return to the office after she has the procedure performed New Patient Visit with Noel Tabares MD 03/08/2020 Last Documented On 1 11:07AM ; [facility] AP 1. Abd pain- get labs, CT as above. Addendum- CT abd/pelvis unremarakble on wet read, has low WBC to 2.9, with fatigue, fever to 102-103, will send to hematology for further workup. Pt is aware Office Visit with David Corbin DO 06/04/2017 Last Documented On 8 7:02AM ; [facility] Clinical summary provided to patient Office Visi t with David Corbin DO 06/04/2017 Last Documented On 8 7:02AM ; [facility] Follow-up visit Office Visit with David schwartz DO 06/04/2017 Last Documented On 8 7:02AM ; [facility] Clinical summary provided to patient Off ice Visit with Sonia Stratton APRN 05/10/2017 Last Documented On 8 5:12PM ; [facility] Follow-up visit with dermato logy if symptoms persist Office Visit with Sonia Stratton APRN 05/10/2017 Last Documented On 8 5:12PM ; [facility] Clinical summary provided to patient Off ice Visit with Sonia Stratton APRN 03/20/2017 Last Documented On 8 4:07PM ; [facility] Follow-up visit as needed Office Visit with Anyi Stratton APRN 03/20/2017 Last Documented On 8 4:07PM ; [facility] Discussed pt concerns. Will get CT REGINO.. Continue with current bland diet/clear fluids. Aware may need additional testing or specialty evaluation. Follow up pending results Office Visit with Chantelle Coburn PA-C 04/03/2016 Last Documented On 7 9:38PM ; [facility] Disposition: stable Office Visit with Chantelle Coburn PA-C 04/03/2016 Last Documented On 7 9:38PM ; [facility] Discussed pt concerns. Kyler nue with current bland diet. Will get labs for above. Pt aware that may need additional medication and or evaluation. Hand out given for Diverticular diet. Follow up pending progress, results. Otherwise follow up with PCP as would normally New Patient Visit with Chantelle Coburn PA-C 03/21/2016 Last Documented On 7 11:15AM ; [facility] Disposition: stable New Patient Visit with Chantelle Coburn PA-C 03/21/2016 Last Documented On 7 11:15AM ; [facility] Referrals To Diagnosis Dermatology - [facility] Rosacea, unsp ecified Last Documented On 8 3:24PM ; [facility] Hematology/Oncology Other decrea sed white blood cell count Note: refer to dharmesh mooney at [facility] cancer specialist within 1-2 wks. Pt has fever to 102, fatigue, low appetite wtih wbc to 2.9, low neutrophils. Last Documented On 8 5:06PM ; [facility] Instructions to patient Instructions for patient Last Documented On 1 10:34AM ; [facility] Instructions for patient Last Documented On 8 1:40PM ; [facility] Instructions for patient Last Documented On 8 7:24AM ; [facility] Instructions for patient Last Documented On 8 1:58PM ; [facility] Instructions for patient Last Documented On 7 8:53AM ; [facility] Instructions for patient Last Documented On 7 11:35AM ; [facility] Education and Decision Aids were provided during visit for: Education and counseling Last Documented On 1 10:34AM ; [facility] Patient education about a pr oper diet Last Documented On 1 10:34AM ; [facility] Education and counseling Last Documented On 8 1:40PM ; [facility] Patient education about a pr oper diet Last Documented On 8 4:35PM ; [facility] Patient education about medi cation Last Documented On 8 1:49PM ; [facility] Self-management goals set fo r patient Last Documented On 8 1:49PM ; [facility] Education and counseling Last Documented On 8 7:24AM ; [facility] Patient education about a pr oper diet Last Documented On 8 7:24AM ; [facility] Patient education about medi cation Last Documented On 8 7:24AM ; [facility] Self-management goals set fo r patient Last Documented On 8 7:24AM ; [facility] Education and counseling Last Documented On 8 1:58PM ; [facility] Patient education about a pr oper diet Last Documented On 8 1:58PM ; [facility] Patient education about medi cation Last Documented On 8 1:58PM ; [facility] Self-management goals set fo r patient Last Documented On 8 1:58PM ; [facility] Education and counseling Last Documented On 7 8:53AM ; [facility] Education and counseling Last Documented On 7 11:35AM ; [facility] Patient education about a pr oper diet Last Documented On 7 11:14AM ; [facility] Assessments Includes: Assessments for all patient encounters Findings Encounter Date Fibrocystic disease of left breast New P atient Visit with Noel Tabares MD 03/08/2020 Last Documented On 1 11:07AM ; [facility] Abdominal pain--RLQ Office Visit with David geano DO 06/04/2017 Last Documented On 8 7:02AM ; [facility] Leukopenia Office Visit with David schwartz DO 06/04/2017 Last Documented On 8 7:02AM ; [facility] Allergic urticaria Office Visit with Sonia Stratton PHOTOCOMPOSING KEYBOARD OPERATOR 05/10/2017 Last Documented On 8 5:12PM ; [facility] Rosacea Office Visit with Sonia beard PHOTOCOMPOSING KEYBOARD OPERATOR 03/20/2017 Last Documented On 8 4:07PM ; [facility] Abdominal pain--RLQ Office Visit with Chantelle Coburn PA-C 04/03/2016 Last Documented On 7 9:38PM ; [facility] Abdominal pain--RUQ Office Visit with Chantelle Coburn PA-C 04/03/2016 Last Documented On 7 9:38PM ; [facility] Diarrhea Office Visit with Chantelle Rodriguez 04/03/2016 Last Documented On 7 9:38PM ; [facility] Abdominal pain--LLQ , improved New Patient Visit with Chantelle Coburn PA-C 03/21/2016 Last Documented On 7 11:15AM ; [facility] Abdominal pain--RLQ , improved New Patient Visit with Chantelle Coburn PA-C 03/21/2016 Last Documented On 7 11:15AM ; [facility] Diarrhea , improved New Patient Visit with Chantelle Coburn PA-C 03/21/2016 Last Documented On 7 11:15AM ; [facility] Visit for: screening for depression New Patient Visit with Chantelle Coburn PA-C 03/21/2016 Last Documented On 7 11:15AM ; [facility] Instructions Includes: Instructions for all patient encounters Instructions to patient Instructions for patient Last Documented On 1 10:34AM ; [facility] Instructions for patient Last Documented On 8 1:40PM ; [facility] Instructions for patient Last Documented On 8 7:24AM ; [facility] Instructions for patient Last Documented On 8 1:58PM ; [facility] Instructions for patient Last Documented On 7 8:53AM ; [facility] Instructions for patient Last Documented On 7 11:35AM ; [facility] Education and Decision Aids were provided during visit for: Education and counseling Last Documented On 1 10:34AM ; [facility] Patient education about a pr oper diet Last Documented On 1 10:34AM ; [facility] Education and counseling Last Documented On 8 1:40PM ; [facility] Patient education about a pr oper diet Last Documented On 8 4:35PM ; [facility] Patient education about medi cation Last Documented On 8 1:49PM ; [facility] Self-management goals set fo r patient Last Documented On 8 1:49PM ; [facility] Education and counseling Last Documented On 8 7:24AM ; [facility] Patient education about a pr oper diet Last Documented On 8 7:24AM ; [facility] Patient education about medi cation Last Documented On 8 7:24AM ; [facility] Self-management goals set fo r patient Last Documented On 8 7:24AM ; [facility] Education and counseling Last Documented On 8 1:58PM ; [facility] Patient education about a pr oper diet Last Documented On 8 1:58PM ; [facility] Patient education about medi cation Last Documented On 8 1:58PM ; [facility] Self-management goals set fo r patient Last Documented On 8 1:58PM ; [facility] Education and counseling Last Documented On 7 8:53AM ; [facility] Education and counseling Last Documented On 7 11:35AM ; [facility] Patient education about a pr oper diet Last Documented On 7 11:14AM ; [facility] Medical Equipment - Implanted Devices Includes: Current and historical Devices No Medical Equipment Recorded Medications Includes: Current and historical Medications Current Medications (continue as prescribed) Pravastatin Sodium 40 MG Oral Tablet 03/08/2020 Prov ider: Diagnosis: Last Documented On 1 10:48AM By Jolanta Blair ; [facility] Losartan Potassium 50 MG Oral Tablet 03/08/2020 Prov ider: Diagnosis: Last Documented On 1 10:47AM By Jolanta Blair ; [facility] Escitalopram Oxalate 10 MG Oral Tablet 03/08/2020 Pr ovider: Diagnosis: Last Documented On 1 10:48AM By Jolanta Blair ; [facility] Lexapro 10 MG Tablet 12/15/2015 Provider: Diagnosis: Last Documented On 7 9:24AM By Bonnie Aguirre ; [facility] Past Medications on file PredniSONE 10MG Oral Tablet 05/10/2017 - 05/16/2017 Provider: Sonia Stratton APRN Diagnosis: Allergic urticar ia Take as directed for 6 days. (taper pack) Last Documented On 8 7:29AM By Sonia Stratton APRN ; [facility] Singulair 10MG Oral Tablet 05/10/2017 - 08/08/2017 Provider: Sonia Stratton APRN Diagnosis: Allergic urticar ia take one tab daily Last Documented On 8 7:29AM By Sonia Stratton APRN ; [facility] MetroNIDAZOLE 0.75% External Cream 03/20/2017 - 07/18/2017 Provider: Sonia Stratton APRN 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 BID PRN Last Documented On 8 2:03PM By Sonia Stratton APRN ; [facility] Cipro 500 MG Tablet 03/29/2016 - 04/03/2016 Provider: Chantelle Coburn PA-C Diagnosis: Left lower quadr ant pain i po bid Last Documented On 7 9:23AM By Bonnie Aguirre ; [facility] Flagyl 250 MG Tablet 03/29/2016 - 04/03/2016 Provider: Chantelle Coburn PA-C Diagnosis: Left lower quadr ant pain i po qid Last Documented On 7 9:24AM By Bonnie Aguirre ; [facility] Pravachol 20 MG Tablet 03/21/2016 - 03/08/2020 Provide r: Diagnosis: ? on dose. Last Documented On 1 10:47AM By Jolanta Blair ; [facility] Medications Administered Includes: Administered Medications in patient's chart Medications Administered Diagnosis Date Pro vider Gastrografin 66-10% OR SOLN Right upper quadrant pain 04/12/2016 Darius Cooney D.O. Last Documented On 7 10:57AM By Deb Tan ; [facility] Isovue-300 61% IV SOLN Right upper quadrant pain 04/12 Darius Cooney D.O. pt injected rt ac Last Documented On 7 10:56AM By Deb Tan ; [facility] Results Includes: Results from 05/07/2023 through 05/06/2024 No Results Recorded For Specified Dates History of Present Illness History of Present Illness not supported for this document type No History of Present Illness Recorded Social History Description Last Updated No tobacco use 03/08/2020 Last Documented On 1 11:07AM ; [facility] Non-smoker 03/08/2020 Last Documented On 1 11:07AM ; [facility] Smoking status : Never smoker 03/08/2020 Last Documented On 1 11:07AM ; [facility] Alcohol use 03/21/2016 Last Documented On 7 11:15AM ; [facility] Caffeine use 03/21/2016 Last Documented On 7 11:15AM ; [facility] Procedures and Surgical History Surgical History Last Updated History of hysterectomy 1984 03/21/2016 Last Documented On 7 11:15AM ; [facility] Medical History Includes: Medical History in patient's chart Description Last Updated History of arthritis 03/21/2016 Last Documented On 7 11:15AM ; [facility] History of diverticulosis of intestine 0 03/21/2016 Last Documented On 7 11:15AM ; [facility] Family History Includes: Family History in patient's chart Description Last Updated Family history of a history of cancer Last Documented On 1 11:07AM ; [facility] Family history of colonic and rectal dis orders 03/08/2020 Last Documented On 1 11:07AM ; [facility] Family history of cancer 04/03/2016 Last Documented On 7 9:38PM ; [facility] Family history of due to suicide 0 04/03/2016 Last Documented On 7 9:38PM ; [facility] Family history of diabetes mellitus 03/06 Last Documented On 7 9:38PM ; [facility] Family history of hyperlipidemia 017 Last Documented On 7 9:38PM ; [facility] Family history of hypertension 7 Last Documented On 7 9:38PM ; [facility] Family history of osteoporosis 7 Last Documented On 7 9:38PM ; [facility] Fraternal history of due to suicid e 04/03/2016 Last Documented On 7 9:38PM ; [facility] Maternal history of hypertension 017 Last Documented On 7 9:38PM ; [facility] Maternal history of osteoporosis 017 Last Documented On 7 9:38PM ; [facility] Paternal history of family history of ca ncer 04/03/2016 Last Documented On 7 9:38PM ; [facility] Paternal history of hyperlipidemia 04/03 Last Documented On 7 9:38PM ; [facility] Son's history of diabetes mellitus 04/03 Last Documented On 7 9:38PM ; [facility] Review of Systems Review of Systems not supported for this document type No Review of Systems Recorded Mental Status Description Oriented to time, place, and person Oriented correctly to time Oriented correctly to place Normal recent memory for reg istration Recent memory was normal for recall Was able to follow a 3-stage command No memory lapses or loss No anxiety No homicidal thoughts A desire to continue living Functional Status No Functional Status Recorded Physical Exam Physical Exam not supported for this document type No Physical Exam Recorded Allergies Includes: Active, inactive, and resolved Allergies Substance Type Reaction Onset Date Resolved Date Statu s Bee Stings Allergy Skin Rashes / Er uption of skin, Hives / Urticaria, facial swelling 03/21/2016 Activ e Last Documented On 10:46AM ; [facility] Insurance Includes: Active Insurance Policies Plan Name Member ID Group # Subscriber Relationship Effect ajay Dates 1 - Blue Medicare PPO [id number] Alem Posada Self Advance Directives Includes: Current Advance Directives Directive Pat Aware Third Libertarian Effective Date Reviewed Sta tus Declined to provide Advanced Directive Yes 03/16/2020 Current a nd Verified Clinical Notes Includes: Signed Clinical Notes starting from 02/17/2022 No Clinical Notes Recorded
--- OUTSIDE RECORDS SUMMARY | 2024-05-06 16:53 | XMS_ITS | Encounter Summary ---
Author Organization [facility] Address [address] [place] [address] Care Team Providers Care Automation Manager Name Role Phone Evelyn Morales MD Primary Care Provider Unavaila Saima Reyes MD Primary Care Provider Unavaila Evelyn Norris MD Primary Care Provider Unavaila Andry Pino MD Primary Care Provider Unavailable Fabio Watts MD Primary Care Provider Manuela Parr MD Primary Care Provider Eladia Haji PA-C Primary Care Provider Unavail able Keyana Wick DO Primary Care Provider Unavaila Saima Reyes MD Primary Care Provider Unavaila ble Encounter Details Date Type Department Care Team Description 10/02/2013 Refill Adult Medicine - [address] [address] Evelyn Morales MD Social History Tobacco Use [...] encounter Miscellaneous Notes * Telephone Encounter - Starr Dennis - 10/06/2013 10:41 AM EDT Left msg for pt to call back * Telephone Encounter - Courtney Bridges - 10/06/2013 10:38 AM EDT Left vm on machine * Telephone Encounter - Evelyn Morales MD - 10/05/2013 12:36 PM EDT Looks like 90 day supply sent 09/25. See chart. Please schedule f/u which is due * Telephone Encounter - Angela Antoine M.A. - 10/04/2013 3:21 PM EDT Last appt 05/04/13 Component Value Date NA 141 02/17/2013 K 4.7 02/17/2013 CO2 28.1 02/17/2013 CL 103 02/17/2013 BUN 17 02/17/2013 CREAT 0.9 02/17/2013 GLU 104 02/17/2013 ALB 4.3 11/17/2010 SGOT 26 11/19/2011 SGPT 33 11/19/2011 TBILI 0.4 11/17/2010 ALKPHOS 84 11/17/2010 TP 7.1 11/17/2010 CA 10.2 02/17/2013 GFR > 60 02/17/2013 * Telephone Encounter - Angela Antoine M.A. - 10/04/2013 3:20 PM EDTFrom: Alem Posada To: Evelyn Morales MD Sent: 10/02/2013 11:28 PM EDT Subject: Medication Renewal Request Original authorizing provider: MD Alem Amador would like a refill of the following medications: escitalopram (LEXAPRO) 10 MG tablet [Evelyn Morales MD] Preferred pharmacy: [facility] - [address] Comment: documented in this encounter Plan of Treatment Not on file documented as of this encounter Visit Diagnoses Diagnosis Anxiety- Primary Anxiety state, unspecified documented in this encounter Care Teams Automation Manager Relationship Specialty Start Date End Date Evelyn Morales MD PCP - General Internal Medicine 06/21/11 02/02/19 Saima Sandoval MD PCP - General Internal Medicine 02/03/19 06/09/20 Evelyn Morales MD PCP - General Internal Medicine 06/10/20 09/11/20 Andry Love MD PCP - General Internal Medicine 09/12/2009/01 Fabio Watts MD [address] [place] [address] PCP - General Internal Medicine 09/14/21 10/31/21 Manuela Parr MD [address] [place] [address] PCP - General Internal Medicine 11/01/21 01/15/22 Eladia Haji PA-C [address] [place], [place] PCP - General Internal Medicine 01/16/22 05/30/22 Keyana Wick DO [address] [place] [address] PCP - General Internal Medicine 05/31/22 10/11/22 Saima Sandoval MD [address] [place] [address] PCP - General Internal Medicine 10/12/22 documented as of this encounter
--- OUTSIDE RECORDS SUMMARY | 2024-05-06 16:53 | XMS_ITS | Encounter Summary ---
Author Organization [facility] Address [address] [place] [address] Care Team Providers Care Telesales Advisor Name Role Phone Evelyn Morales MD Primary Care Provider UnavailSaima Ospina MD Primary Care Provider Unavaila Evelyn Norris MD Primary Care Provider Unavaila Andry Pino MD Primary Care Provider Unavailable Fabio Watts MD Primary Care Provider Manuela Parr MD Primary Care Provider [phone] Eladia Haji PA-C Primary Care Provider Unavail able Keyana Wick DO Primary Care Provider Unavaila Saima Reyes MD Primary Care Provider Unavaila cait Encounter Details Date Type Department Care Team Description 02/05/2015 Refill Adult Medicine - [address] [address] Evelyn Morales MD Social History Tobacco Use [...] encounter Miscellaneous Notes * Telephone Encounter - Chantelle Chavez L.P.N. - 02/07/2015 8:44 AM ESTFrom: Alem Posada To: Evelyn Morales MD Sent: 02/05/2015 12:14 AM EST Subject: Medication Renewal Request Original authorizing provider: MD Silvestre Amadoren Laptew would like a refill of the following medications: escitalopram (LEXAPRO) 10 MG tablet [Evelyn Morales MD] Preferred pharmacy: [facility] - [address] Comment: documented in this encounter Plan of Treatment Not on file documented as of this encounter Visit Diagnoses Not on filedocumented in this encounter Care Teams Telesales Advisor Relationship Specialty Start Date End Date Evelyn Morales MD PCP - General Internal Medicine 06/21/11 02/02/19 Saima Sandoval MD PCP - General Internal Medicine 02/03/19 06/09/20 Evelyn Morales MD PCP - General Internal Medicine 06/10/20 09/11/20 Andry Love MD PCP - General Internal Medicine 09/12/2009/01 Fabio Watts MD [address] [place] [address] PCP - General Internal Medicine 09/14/21 10/31/21 Manuela Parr MD [address] [place] [address] PCP - General Internal Medicine 11/01/21 01/15/22 Eladia Haji PA-C [address] [place], [place] PCP - General Internal Medicine 01/16/22 05/30/22 Keyana Wick DO [address], [place] PCP - General Internal Medicine 05/31/22 10/11/22 Saima Sandoval MD [address], [place] PCP - General Internal Medicine 10/12/22 documented as of this encounter
--- OUTSIDE RECORDS SUMMARY | 2024-05-06 16:53 | XMS_ITS | Encounter Summary ---
Author Organization [facility] Address [address] [place] [address] Care Team Providers Care Sawmill Worker Name Role Phone Evelyn Morales MD Primary Care Provider Unavaila Saima Reyes MD Primary Care Provider Unavaila ble Evelyn Morales MD Primary Care Provider Unavaila ble Andry Love MD Primary Care Provider Unavailable Fabio Watts MD Primary Care Provider Manuela Parr MD Primary Care Provider Eladia Haji PA-C Primary Care Provider Unavail able Keyana Wick DO Primary Care Provider Unavaila Saima Reyes MD Primary Care Provider Unavaila ble Reason for Visit * Reason Onset Date Comments [employer] 08/31/2014 Dr Sergio Owens Encounter Details Date Type Department Care Team Description 08/31/2014 Telephone Adult Medicine - [address] [address] Evelyn Morales MD [employer] (Dr Sergio Owens) Social History Tobacco Use Types Packs/Day Years [...] encounter Miscellaneous Notes * Telephone Encounter - Janelle Lovett - 09/01/2014 4:07 PM EDT My chemical processing supervisor contacted [facility] and was transferred several times until she spoke with Alem. Alem was on the other line with the IT Department trying to get this resolved. We were transferred to [facility] and she took all the information and is going to have someone contact me back to try to get this issue resolved. Ref# for this call is [id number] * Telephone Encounter - Janelle Lovett - 09/01/2014 3:[address] Owens'venkata and relayed this information. Per Preethi at Dr Owens's [place] [address] and [address]. And The Dx Code is 366.[address] [facility] back and spoke with Dorie.Dorie states that her department does not process referrals. She advised that I need to talk to [employer] service. She transferred me and I spoke Spoke with Belen. Belen states that patient does in fact require an insurance referral however it need to be processed online. She explained to me that I need to talk with the help desk. She transferred me to [facility]. Jenise stated it was a problem with [employer]. I was then transferred to [employer] Spoke with a man who states that it is not an error with them it is with [facility]. He transferred me backto [facility] IT support. Spoke with Dixon at [facility] IT support who states that because the error comes up when weare using the [employer] cloud it is an error on their end. He apologized for me being bounced around but he could not help me. And told me to contact [employer] * Telephone Encounter - Janelle Lovett - 09/01/2014 2:[address] [facility] and Spoke with Frances. Per Frances they will not back date insurance referrals. [place] [address] no referrals are required. I explained that I have been attempting to process an insurance referral for thid patient since theDOS of 08/30/14 but kept getting an error of The system is not available at this time. Please try again later. * Telephone Encounter - Janelle Lovett - 08/31/2014 9:57 AM EDT Call received from Dr Owens's office requesting referrals for DOS 08/30/14. documented in this encounter Plan of Treatment Not on file documented as of this encounter Visit Diagnoses Not on filedocumented in this encounter Care Teams Sawmill Worker Relationship Specialty Start Date End Date Evelyn Morales MD PCP - General Internal Medicine 06/21/11 02/02/19 Saima Sandoval MD PCP - General Internal Medicine 02/03/19 06/09/20 Evelyn Morales MD PCP - General Internal Medicine 06/10/20 09/11/20 Andry Love MD PCP - General Internal Medicine 09/12/2009/01 Fabio Watts MD [address] [place] [address] PCP - General Internal Medicine 09/14/21 10/31/21 Manuela Parr MD [address], [place] PCP - General Internal Medicine 11/01/21 01/15/22 Eladia Haji PA-C [address] [place], [place] PCP - General Internal Medicine 01/16/22 05/30/22 Keyana Wick DO [address] [place], [place] PCP - General Internal Medicine 05/31/22 10/11/22 Saima Sandoval MD [address] [place] [address] PCP - General Internal Medicine 10/12/22 documented as of this encounter
--- OUTSIDE RECORDS SUMMARY | 2024-05-06 16:54 | XMS_ITS | Clinical Summary ---
[facility] Address [address] [place] [phone] Phone Care Team Providers Care Sawmill Supervisor Name Role Phone Noel Tabares MD Unavailable Unavailable Reason for Visit and Chief Complaint Lab W/o Dr Problems Includes: Problems addressed during this encounter and other active Problems All Visits Onset Date Resolved Date Provider Condition S tatus Abdominal Pain--ruq 04/03/2016 Chantelle Coburn PA-C Active Last Documented On 7 9:37PM ; [facility] Abdominal Pain--rlq 03/22/2016 Chantelle Coburn PA-C Active Last Documented On 7 11:09AM ; [facility] Diarrhea 03/22/2016 Chantelle Coburn PA-C Active Last Documented On 7 11:09AM ; [facility] Hyperlipidemia Mixed 03/21/2016 Chantelle Coburn PA-C Active Last Documented On 7 11:13AM ; [facility], [facility] Plan of Treatment No Plan of Treatment Recorded Assessments Includes: Assessments from this encounter No Assessments Recorded Medical Equipment - Implanted Devices Includes: Current Devices No Medical Equipment Recorded Medications Includes: Medications discussed during this encounter and other current Medications Current Medications (continue as prescribed) Pravastatin Sodium 40 MG Oral Tablet 03/08/2020 Prov ider: Diagnosis: Last Documented On 1 10:48AM By Jolanta Blair ; [facility], [facility] Losartan Potassium 50 MG Oral Tablet 03/08/2020 Prov ider: Diagnosis: Last Documented On 1 10:47AM By Jolanta Blair ; [facility] Escitalopram Oxalate 10 MG Oral Tablet 03/08/2020 Pr ovider: Diagnosis: Last Documented On 1 10:48AM By Jolanta Blair ; [facility] Lexapro 10 MG Tablet 12/15/2015 Provider: Diagnosis: Last Documented On 7 9:24AM By Bonnie Aguirre ; [facility], [facility] Medications Administered Includes: Administered Medications from this encounter No Administered Medications Recorded Results Includes: Results discussed during this encounter No Results Recorded For Specified Dates History of Present Illness Includes: History of Present Illness from this encounter No History of Present Illness Recorded Social History No Social History Recorded - Smoking Status Unknown Medical History Includes: Medical History addressed during this encounter No Medical History Recorded Family History Includes: Family History addressed during this encounter No Family History Recorded Review of Systems Includes: Review of Systems from this encounter No Review of Systems Recorded Mental Status Includes: Mental Status from this encounter No Mental Status Recorded Functional Status Includes: Functional Status from this encounter No Functional Status Recorded Physical Exam Includes: Physical Exam from this encounter No Physical Exam Recorded Allergies Includes: Active Allergies Substance Type Reaction Onset Date Resolved Date Statu s Bee Stings Allergy Skin Rashes / Er uption of skin, Hives / Urticaria, facial swelling 03/21/2016 Activ e Last Documented On 1 10:46AM ; [facility] Encounters Encounter Provider Location Date Check-In Time Check-Out Time Diagnosis [facility] 2:00PM 2:07PM Insurance Includes: Active Insurance Policies Plan Name Member ID Group # Subscriber Relationship Effect ajay Dates 1 - Blue Medicare PPO [id number] Alem Posada Self Advance Directives Includes: Current Advance Directives Directive Pat Aware Third Green Party Effective Date Reviewed Sta tus Declined to provide Advanced Directive Yes 03/16/2020 Current a nd Verified Clinical Notes Includes: Clinical Notes from this encounter No Clinical Notes Recorded
--- OUTSIDE RECORDS SUMMARY | 2024-05-06 16:54 | XMS_ITS | Clinical Summary ---
Author Organization [facility] Address [address] [place] [id number] Phone Care Team Providers Care Fisher Lobster Name Role Phone Noel Tabares MD Unavailable Unavailable Reason for Visit and Chief Complaint The Chief Complaint is: NEW PT. [place]. Student = yes Problems Includes: Problems addressed during this encounter and other active Problems All Visits Onset Date Resolved Date Provider Condition S tatus Abdominal Pain--ruq 04/03/2016 Chantelle Coburn PA-C Active Last Documented On 7 9:37PM ; [facility] Abdominal Pain--rlq 03/22/2016 Chantelle Coburn PA-C Active Last Documented On 7 11:09AM ; [facility] Diarrhea 03/22/2016 Chantelle Coburn PA-C Active Last Documented On 7 11:09AM ; [facility] Hyperlipidemia Mixed 03/21/2016 Chantelel Coburn PA-C Active Last Documented On 7 11:13AM ; [facility] Plan of Treatment - Fibrocystic disease of left breast: The patient will be scheduled for mammogram and ultrasound to evaluate her breast. She is counseled self breast exams. She will return to the office after she has the procedure performed - Last Documented On 03/11/2020 11:07AM ; [facility] Instructions to patient Instructions for patient Last Documented On 1 10:34AM ; [facility] Education and Decision Aids were provided during visit for: Education and counseling Last Documented On 1 10:34AM ; [facility] Patient education about a pr oper diet Last Documented On 1 10:34AM ; [facility] Assessments Includes: Assessments from this encounter Findings - Fibrocystic disease of left breast - Last Documented On 03/11/2020 11:07AM ; [facility] Instructions Includes: Instructions from this encounter Instructions to patient Instructions for patient Last Documented On 10:34AM ; [facility] Education and Decision Aids were provided during visit for: Education and counseling Last Documented On 10:34AM ; [facility] Patient education about a pr oper diet Last Documented On 10:34AM ; [facility] Medical Equipment - Implanted Devices Includes: Current Devices No Medical Equipment Recorded Medications Includes: Medications discussed during this encounter and other current Medications Discontinued / Stopped on this date on 03/21/2016 Pravachol 20 MG Tablet Provider: Diagnosis: Last Documented On 10:47AM By Jolanta Blair ; [facility] Current Medications (continue as prescribed) Pravastatin Sodium 40 MG Oral Tablet 03/08/2020 Prov ider: Diagnosis: Last Documented On 10:48AM By Jolanta Blair ; [facility] Losartan Potassium 50 MG Oral Tablet 03/08/2020 Prov ider: Diagnosis: Last Documented On 10:47AM By Jolanta Blair ; [facility] Escitalopram Oxalate 10 MG Oral Tablet 03/08/2020 Pr ovider: Diagnosis: Last Documented On 10:48AM By Jolanta Blair ; [facility] Lexapro 10 MG Tablet 12/15/2015 Provider: Diagnosis: Last Documented On 7 9:24AM By Bonnie Aguirre ; [facility] Past Medications on file PredniSONE 10MG Oral Tablet 05/10/2017 - 05/16/2017 Provider: Sonia Stratton APRN Diagnosis: Allergic urticar ia Take as directed for 6 days. (taper pack) Last Documented On 8 7:29AM By Sonia Stratton APRN ; [facility] Singulair 10MG Oral Tablet 05/10/2017 - 08/08/2017 Provider: Sonia Stratton APRN Diagnosis: Allergic urticar ia take one tab daily Last Documented On 8 7:29AM By Sonia Stratton APRN ; [facility] MetroNIDAZOLE 0.75% External Cream 03/20/2017 - 07/18/2017 Provider: Sonia Stratton APRN 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 BID PRN Last Documented On 8 2:03PM By Sonia Stratton APRN ; [facility] Medications Administered Includes: Administered Medications from this encounter No Administered Medications Recorded Vital Signs Includes: Vital Signs from this encounter Vital Name 03/08/2020 10:49A Blood Pressure Sitting L 128/68 BP Cuff Size Regular Pulse Rate-Sitting (bpm) 72 Temp-Temporal 97.4 Height (in) 67 Weight (lb) 148 Body Mass Index (kg/m2) 23.2 Body Surface Area (m2) 1.8 Oxygen Saturation (%) 100 Last Documented: On 03/08/2020 10:50A M ; [facility] Results Includes: Results discussed during this encounter No Results Recorded For Specified Dates History of Present Illness Includes: History of Present Illness from this encounter HPI Alem Posada is a 79 year old female. - Allergy list reviewed - Medication reconciliation performed - Medication list reviewed Alem presents to the office today for evaluation. She has her mammograms performed in [place] and was told that she had an abnormal result and to follow-up here in [place]. Unfortunately those records are not available. She reports that they saw some small areas of calcifications. She does not remember which breast it was. She reports that she has some breast tenderness bilaterally but nothing significant. She hasn't felt no palpable masses. She denies any nipple discharge or skin changes. She reports that she has a history of fibrous areas in her breast for which she had follow-up mammograms and ultrasounds. History of essential hypertension. History of complete colonoscopy 2013. Social History Description Last Updated No tobacco use 03/08/2020 Last Documented On 1 11:07AM ; [facility] Non-smoker 03/08/2020 Last Documented On 1 11:07AM ; [facility] Smoking status : Never smoker 03/08/2020 Last Documented On 11:07AM ; [facility] Alcohol use 03/21/2016 Last Documented On 10:07AM ; [facility] Caffeine use 03/21/2016 Last Documented On 10:07AM ; [facility] Procedures and Surgical History Includes: Procedures from this encounter Procedures Code Diagnosis Performing Provider Service L ocation Service Date education and instructions Last Documented On 10:34AM ; [facility] medication list documented 1159F Last Documented On 10:34AM ; [facility] review of medications documented 1160F Last Documented On 10:34AM ; [facility] body mass index documented 3008F Last Documented On 10:34AM ; [facility] PQRI-Most recent systolic BP < 130 mm Hg 3074F Last Documented On 1 10:50AM ; [facility] PQRI-Most recent diastolic BP < 80 mm Hg 3078F Last Documented On 10:50AM ; [facility] Clinical summary provided to patient Last Documented On 10:34AM ; [facility] Surgical History Last Updated History of hysterectomy 1984 03/21/2016 Last Documented On 1 10:07AM ; [facility] Medical History Includes: Medical History addressed during this encounter Description Last Updated History of arthritis 03/21/2016 Last Documented On 1 10:07AM ; [facility] History of diverticulosis of intestine 0 03/21/2016 Last Documented On 1 10:07AM ; [facility] Family History Includes: Family History addressed during this encounter Description Last Updated Family history of a history of cancer Last Documented On 1 11:07AM ; [facility] Family history of colonic and rectal dis orders 03/08/2020 Last Documented On 11:07AM ; [facility] Family history of cancer 04/03/2016 Last Documented On 1 10:07AM ; [facility] Family history of due to suicide 0 04/03/2016 Last Documented On 1 10:07AM ; [facility] Family history of diabetes mellitus 03/06 Last Documented On 1 10:07AM ; [facility] Family history of hyperlipidemia 017 Last Documented On 1 10:07AM ; [facility] Family history of hypertension 7 Last Documented On 1 10:07AM ; [facility] Family history of osteoporosis 7 Last Documented On 1 10:07AM ; [facility] Fraternal history of due to suicid e 04/03/2016 Last Documented On 1 10:07AM ; [facility] Maternal history of hypertension 017 Last Documented On 1 10:07AM ; [facility] Maternal history of osteoporosis 017 Last Documented On 1 10:07AM ; [facility] Paternal history of family history of ca ncer 04/03/2016 Last Documented On 1 10:07AM ; [facility] Paternal history of hyperlipidemia 04/03 Last Documented On 1 10:07AM ; [facility] Son's history of diabetes mellitus 04/03 Last Documented On 1 10:07AM ; [facility] Review of Systems Includes: Review of Systems from this encounter Systemic: No generalized pain and not feeling tired or poorly. No fever, no chills, and no recent weight change. No night sweats, no edema, and no aching. Head: No headache and no headache. Neck: No swollen glands in the neck. Eyes: No glaucomatous visual field defect. No diplopia. Otolaryngeal: No hearing loss. Tinnitus. No nose and sinus finding. Breasts: No breast lump, no nipple discharge, and breast pain does not fluctuate with menses. Cardiovascular: No chest pain or discomfort, no chest pain or discomfort, no palpitations, no palpitations, the heart rate was not slow, the heart rate was not fast, no intermittent leg claudication, no cold hands or feet, and no varicose veins. Pulmonary: Not feeling congested in the chest, no dyspnea, no orthopnea, no cough, no hemoptysis, and no wheezing. Gastrointestinal: Normal appetite, no dysphagia, no heartburn, no heartburn, and no regurgitation. No nausea, no vomiting, no bloating, and no abdominal pain. No flatus and no hematochezia. No diarrhea, no constipation, and no constipation. Genitourinary: No hematuria, no changes in urinary habits, and no increase in urinary frequency. No urinary loss of control, no urinary loss of control, no dysuria, no dysuria, and no pain in the flank. No genital lesion, no pain during intercourse, normal duration of periods, and no menorrhagia. No dysmenorrhea. No vaginal discharge and no bowel/bladder changes. Endocrine: No polydipsia and not alternately too hot and too cold. No sexual complaints and no hair symptoms. Hematologic: No tendency for easy bruising. Musculoskeletal: No upper back pain unexplained, no midback pain unexplained, and no lower back pain unexplained. No bones break easily. Neurological: No dizziness, no fainting, no memory lapses or loss, and no difficulty walking. Psychological: No anxiety, no anxiety, no depression, no depression, no sleep disturbances, and a desire to continue living. No homicidal thoughts, no emotional problems/concerns, and no interpersonal relationship problems. Skin: No dry skin, no pruritus, and no change in skin texture. No skin lesions and nails are normal. Allergic and Immunologic: No complaint of recurrent infections. Gastrointestinal Disorder: No diagnosis of gallbladder disease. No diagnosis of hepatitis. No diagnosis of hernia. Renal Disorder: No diagnosis of infection of a kidney. No diagnosis of nephrolithiasis. Urologic Disorder: No diagnosis of bladder infection. Breast disorders: No diagnosis of breast cyst. No diagnosis of nipple deformity and no diagnosis of deformity of reconstructed breast. Rheumatologic Disorder: Arthritis. Neurologic Disorder: No diagnosis of migraine headache. No diagnosis of premenstrual syndromes Tension. Hematologic Disorder: No diagnosis of coagulation defects. No diagnosis of anemia, no sickle cell abnormality, and no thalassemia. Past Medical: No recurrent yeast infections. No Gonorrhea. No Syphilis. No Chlamydia. Rectal: No hemorrhoids were seen. Neurological: No seizure was observed. Mental Status Includes: Mental Status from this encounter Description Oriented to time, place, and person Oriented correctly to time Oriented correctly to place Normal recent memory for reg istration Recent memory was normal for recall Was able to follow a 3-stage command No memory lapses or loss No anxiety No homicidal thoughts A desire to continue living Functional Status Includes: Functional Status from this encounter No Functional Status Recorded Physical Exam Includes: Physical Exam from this encounter Allergies Includes: Active Allergies Substance Type Reaction Onset Date Resolved Date Statu s Bee Stings Allergy Skin Rashes / Er uption of skin, Hives / Urticaria, facial swelling 03/21/2016 Activ e Last Documented On 1 10:46AM ; [facility] Encounters Encounter Provider Location Date Check-In Time Check-Out Time Diagnosis New Patient Visit Noel Tabares MD [facility] 03/08/19 21 10:34AM 11:23AM Breast Fibrocystic Disease Left Insurance Includes: Active Insurance Policies Plan Name Member ID Group # Subscriber Relationship Effect ajay Dates 1 - Blue Medicare PPO [id number] Alem Posada Self Advance Directives Includes: Current Advance Directives Directive Pat Aware Third Alliance Party Effective Date Reviewed Sta tus Declined to provide Advanced Directive Yes 03/16/2020 Current a nd Verified Clinical Notes Includes: Clinical Notes from this encounter No Clinical Notes Recorded
--- OUTSIDE RECORDS SUMMARY | 2024-05-06 16:54 | XMS_ITS | Encounter Summary ---
Author Organization [facility] Address [address] [place] [address] Care Team Providers Care Coin Machine Operator Name Role Phone Evelyn Morales MD Primary Care Provider Unavaila ble Andry Love MD Primary Care Provider Unavailable Fabio Watts MD Primary Care Provider Manuela Parr MD Primary Care Provider [phone] Eladia Haji PA-C Primary Care Provider Unavail able Keyana Wick DO Primary Care Provider Unavaila ble Saima Sandoval MD Primary Care Provider Unavaila ble Reason for Visit * Reason Onset Date Comments Orders Call 08/16/2020 Encounter Details Date Type Department Care Team Description 08/16/2020 Telephone Adult Medicine - [address] [address] Evelyn Morales MD Orders Call Social History Tobacco Use Types Packs/Day Years [...] Telephone Encounter - Evelyn Morales MD - 08/30/2020 1:35 PM EDT Please schedule pt for procedure advised by radiologist. I ordered this 1 week ago as per your request. * Telephone Encounter - Evelyn Morales MD - 08/23/2020 8:05 PM EDT Usually radiologist orders this rather than the PCP. I ordered this per your request to the best ofmy ability . * Telephone Encounter - Tanesha Talley - 08/23/2020 10:[address] orders for the biopsy and once this is placed I will call pt to schedule an appt. Thank you. * Telephone Encounter - Evelyn Morales MD - 08/22/2020 4:47 PM EDT Discussed with patient that Dr. Kingsley still feels stereotactic biopsy would be appropriate to evaluate this suspicious area in the right breast. Spoke with patient and she is agreeable to biopsy. Please contact patient to schedule stereotactic biopsy recommended by Dr. Kingsley. Thank you * Telephone Encounter - Evelyn Morales MD - 08/16/2020 10:55 PM EDT Patient had a mammogram 02/10/[address] Kingsley recommended stereotactic biopsy of suspiciousarea of the right breast. Patient reports she was going to [place] so she was given a copy of the mammogram to have the biopsy done there. She returns stating that she requested biopsy but the providers in [place] repeated her mammogram in [place] in April and advised her a biopsy was not needed. I have asked her to sign a release to have these films forwarded to our office for review. I am hoping Dr. Kingsley could review this and determine if she feels the patient should have updated mammogram or consider biopsy. Please advise. 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 - CALCIFICATIONS ARE PRESENT IN STROMA OF FIBROADENOMA AND IN BENIGN BREAST EPITHELIUM. The pathology is concordant with the imaging features. ??The benign results were discussed with the patient by telephone at 9:27 AM on 10/31/2020. Narrative [facility] - 10/27/2020 9:48 AM EDT PROCEDURE: Stereotactic biopsy of the right breast. HISTORY: Suspicious microcalcifications. TECHNIQUE: The timeout, which included patient's full name, date of , description of the expected procedure and procedure site, was performed immediately before the procedure to confirm patient's identity. Informed consent was obtained. Stereotactic guided core biopsy was performed. The patient was positioned and with the breast in compression, the region of interest was targeted using 3-D mammographic images. A craniad approach was used. ??The skin was cleansed with BETADINE. ??Cutaneous anesthesia was achieved using 1% LIDOCAINE. Deeper anesthesia was achieved using 1% LIDOCAINE with EPINEPHRINE. A 3 mm incision was made using a scalpel. A 9 gauge vacuum assisted biopsy needle was inserted into the targeted area and its accuracy was confirmed with prefire mammographic images. 5 core biopsy specimens were obtained. Specimen radiograph demonstrated calcifications in the core specimen. Biopsy marker clip was deployed at the biopsy site. Following the procedure, the biopsies site was compressed for 10 minutes, and then cleaned. Steri-Strips and sterile gauze were applied and the patient was given postbiopsy instructions. Postprocedure mammogram was obtained to document biopsy marker clip location. The patient tolerated the procedure well and left the department in good condition. The patient will be notified by telephone when the pathology results become available for review. Procedure Note Yudi Mosley MD - 10/27/2020 PROCEDURE: Stereotactic biopsy of the right breast. HISTORY: Suspicious microcalcifications. TECHNIQUE: The timeout, which included patient's full name, date of ,description of the expected procedure and procedure site, was performed immediately beforethe procedure to confirm patient's identity. Informed consent was obtained. Stereotactic guided core biopsy was performed. The patient was positioned and with the breast in compression, the regionof interest was targeted using 3-D mammographic images. A craniad approach was used. The skin was cleansed with BETADINE.Cutaneous anesthesia was achieved using 1% LIDOCAINE. Deeper anesthesia was achieved using 1% LIDOCAINE with EPINEPHRINE. A 3 mm incision was made using a scalpel. A 9 gauge vacuum assisted biopsy needle was inserted into the targetedarea and its accuracy was confirmed with prefire mammographic images. 5 core biopsy specimens were obtained. Specimen radiograph demonstrated calcifications in the core specimen. Biopsy marker clip was deployed at the biopsy site. Following the procedure, the biopsies site was compressed for 10 minutes,and then cleaned. Steri-Strips and sterile gauze were applied and the patient was givenpostbiopsy instructions. Postprocedure mammogram was obtained to document biopsy marker cliplocation. The patient tolerated the procedure well and left the department in goodcondition. The patient will be notified by telephone when the pathology resultsbecome available for review. Evelyn Morales MD MAMMOGRAPHY Performing Organization Address City/State/[facility] mt Phone Number [facility] documented in this encounter Visit Diagnoses Diagnosis Calcification of right breast on mammography- Primary Calcification of right breast on mammography documented in this encounter Care Teams Coin Machine Operator Relationship Specialty Start Date End Date Evelyn Morales MD PCP - General Internal Medicine 06/10/20 09/11/20 Andry Love MD PCP - General Internal Medicine 09/12/2009/01 Fabio Watts MD [address] [place] [address] PCP - General Internal Medicine 09/14/21 10/31/21 Manuela Parr MD [address] [place] [address] PCP - General Internal Medicine 11/01/21 01/15/22 Eladia Haji PA-C [address] [place] [address] PCP - General Internal Medicine 01/16/22 05/30/22 Keyana Wick DO [address] [place] [address] PCP - General Internal Medicine 05/31/22 10/11/22 Saima Sandoval MD [address] [place] [address] PCP - General Internal Medicine 10/12/22 documented as of this encounter
--- OUTSIDE RECORDS SUMMARY | 2024-05-06 16:54 | XMS_ITS | Clinical Summary ---
[facility] Address [address] [place] [phone] Phone Care Team Providers Care Vision Therapist Name Role Phone Noel Tabares MD Unavailable Unavailable Reason for Visit and Chief Complaint The Chief Complaint is: Complaints of a fever since Saturday. She thinks she is having a flare of diverticulitis Problems Includes: Problems addressed during this encounter and other active Problems Current Visit Onset Date Resolved Date Provider Conditio n Status Abdominal Pain--rlq 03/22/2016 Chantelle Coburn PA-C Active Last Documented On 7 11:09AM ; [facility] Past Visits Onset Date Resolved Date Provider Condition Status Abdominal Pain--ruq 04/03/2016 Chantelle Coburn PA-C Active Last Documented On 7 9:37PM ; [facility] Diarrhea 03/22/2016 Chantelle Coburn PA-C Active Last Documented On 7 11:09AM ; [facility] Hyperlipidemia Mixed 03/21/2016 Chantelle Coburn PA-C Active Last Documented On 7 11:13AM ; [facility] Plan of Treatment - Follow-up visit - Last Documented On 06/07/2017 7:02AM ; [facility] - Clinical summary provided to patient - Last Documented On 06/07/2017 7:02AM ; [facility] AP 1. Abd pain- get labs, CT as above. Addendum- CT abd/pelvis unremarakble on wet read, has low WBC to 2.9, with fatigue, fever to 102-103, will send to hematology for further workup. Pt is aware. - Last Documented On 06/07/2017 7:02AM ; [facility] Referrals To Diagnosis Hematology/Oncology Other decrea sed white blood cell count Note: refer to dharmesh mooney at [facility] cancer specialist within 1-2 wks. Pt has fever to 102, fatigue, low appetite wtih wbc to 2.9, low neutrophils. Last Documented On 8 5:06PM ; [facility] Instructions to patient Instructions for patient Last Documented On 8 1:40PM ; [facility] Education and Decision Aids were provided during visit for: Education and counseling Last Documented On 8 1:40PM ; [facility] Patient education about a pr oper diet Last Documented On 8 4:35PM ; [facility] Patient education about medi cation Last Documented On 8 1:49PM ; [facility] Self-management goals set fo r patient Last Documented On 8 1:49PM ; [facility] Assessments Includes: Assessments from this encounter Findings - Abdominal pain--RLQ [Right lower quadrant pain] - Last Documented On 06/07/2017 7:02AM ; [facility] - Leukopenia [Other decreased white blood cell count] - Last Documented On 06/07/2017 7:02AM ; [facility] Instructions Includes: Instructions from this encounter Instructions to patient Instructions for patient Last Documented On 8 1:40PM ; [facility] Education and Decision Aids were provided during visit for: Education and counseling Last Documented On 8 1:40PM ; [facility] Patient education about a pr oper diet Last Documented On 8 4:35PM ; [facility] Patient education about medi cation Last Documented On 8 1:49PM ; [facility] Self-management goals set fo r patient Last Documented On 8 1:49PM ; [facility] Medical Equipment - Implanted Devices Includes: Current Devices No Medical Equipment Recorded Medications Includes: Medications discussed during this encounter and other current Medications Current Medications (continue as prescribed) Pravastatin Sodium 40 MG Oral Tablet 03/08/2020 Prov ider: Diagnosis: Last Documented On 1 10:48AM By Jolanta Blair ; [facility] Losartan Potassium 50 MG Oral Tablet 03/08/2020 Prov ider: Diagnosis: Last Documented On 1 10:47AM By Jolanta Blair ; [facility] Escitalopram Oxalate 10 MG Oral Tablet 03/08/2020 Pr ovider: Diagnosis: Last Documented On 1 10:48AM By Jolanta Blair ; [facility] Lexapro 10 MG Tablet 12/15/2015 Provider: Diagnosis: Last Documented On 7 9:24AM By Bonnie Aguirre ; [facility] Past Medications on file PredniSONE 10MG Oral Tablet 05/10/2017 - 05/16/2017 Provider: Sonia Stratton APRN Diagnosis: Allergic urticar ia Take as directed for 6 days. (taper pack) Last Documented On 8 7:29AM By Sonia Stratton APRN ; [facility] Singulair 10MG Oral Tablet 05/10/2017 - 08/08/2017 Provider: Sonia Stratton APRN Diagnosis: Allergic urticar ia take one tab daily Last Documented On 8 7:29AM By Sonia Stratton APRN ; [facility] MetroNIDAZOLE 0.75% External Cream 03/20/2017 - 07/18/2017 Provider: Sonia Stratton APRN 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 BID PRN Last Documented On 8 2:03PM By Sonia Stratton APRN ; [facility] Medications Administered Includes: Administered Medications from this encounter No Administered Medications Recorded Vital Signs Includes: Vital Signs from this encounter Vital Name 06/04/2017 01:38P Blood Pressure Sitting L 120/60 BP Cuff Size Regular Pulse Rate-Sitting (bpm) 79 Pulse Rhythm Regular Respiration Rate (breaths/min) 18 Temp-Tympanic (F) 97.8 Height (in) 66.5 Weight (lb) 143 Body Mass Index (kg/m2) 22.7 Body Surface Area (m2) 1.7 Oxygen Saturation (%) 98 Last Documented: On 06/04/2017 1:40PM ; [facility] Results Includes: Results discussed during this encounter No Results Recorded For Specified Dates History of Present Illness Includes: History of Present Illness from this encounter HPI Alem Posada is a 76 year old female. Pt noted to have abdominal pain last week, noted to have a hard BM that passed. Pt noted to have low grade temp to 101 on Saturday, noted to have on saturday to have some loose stools. Notes that she did not feel like eating, has mild cramping and discomfort in the abdomen, had 103 temp on Saturday, noted to have 102 this am. Currently, noted to have occasional loose stools. No CP, SOB or other upper respiratory symptoms. No urinary issues. - Medication list reviewed. Social History Description Last Updated No tobacco use 06/04/2017 Last Documented On 8 7:02AM ; [facility] Smoking status : Former smoker 8 Last Documented On 8 7:02AM ; [facility] Alcohol use 03/21/2016 Last Documented On 8 1:38PM ; [facility] Caffeine use 03/21/2016 Last Documented On 8 1:38PM ; [facility] Procedures and Surgical History Includes: Procedures from this encounter Procedures Code Diagnosis Performing Provider Service L ocation Service Date education and instructions Last Documented On 8 1:40PM ; [facility] blood pressure measured 2000F Last Documented On 8 1:49PM ; [facility] use of tobacco assessment performed 1000F Last Documented On 8 1:49PM ; [facility] medication list documented 1159F Last Documented On 8 1:40PM ; [facility] review of medications documented 1160F Last Documented On 8 1:40PM ; [facility] body mass index documented 3008F Last Documented On 8 1:40PM ; [facility] PQRI-Most recent systolic BP < 130 mm Hg 3074F Last Documented On 8 1:40PM ; [facility] PQRI-Most recent diastolic BP < 80 mm Hg 3078F Last Documented On 8 1:40PM ; [facility] Clinical summary provided to patient Last Documented On 8 1:40PM ; [facility] Surgical History Last Updated History of hysterectomy 1984 03/21/2016 Last Documented On 8 1:38PM ; [facility] Medical History Includes: Medical History addressed during this encounter Description Last Updated History of arthritis 03/21/2016 Last Documented On 8 1:38PM ; [facility] History of diverticulosis of intestine 0 03/21/2016 Last Documented On 8 1:38PM ; [facility] Family History Includes: Family History addressed during this encounter Description Last Updated Family history of cancer 04/03/2016 Last Documented On 8 1:38PM ; [facility] Family history of due to suicide 0 04/03/2016 Last Documented On 8 1:38PM ; [facility] Family history of diabetes mellitus 03/06 Last Documented On 8 1:38PM ; [facility] Family history of hyperlipidemia 017 Last Documented On 8 1:38PM ; [facility] Family history of hypertension 7 Last Documented On 8 1:38PM ; [facility] Family history of osteoporosis 7 Last Documented On 8 1:38PM ; [facility] Fraternal history of due to suicid e 04/03/2016 Last Documented On 8 1:38PM ; [facility] Maternal history of hypertension 017 Last Documented On 8 1:38PM ; [facility] Maternal history of osteoporosis 017 Last Documented On 8 1:38PM ; [facility] Paternal history of family history of ca ncer 04/03/2016 Last Documented On 8 1:38PM ; [facility] Paternal history of hyperlipidemia 04/03 Last Documented On 8 1:38PM ; [facility] Son's history of diabetes mellitus 04/03 Last Documented On 8 1:38PM ; [facility] Review of Systems Includes: Review of Systems from this encounter Systemic: No generalized pain. Feeling tired or poorly and fever. No chills and no recent weight change. No night sweats, no edema, and no aching. Head: No headache, no facial pain, no sinus pain, and no sinus pressure. Neck: No neck pain, no neck stiffness, no lump or swelling in the neck, and no swollen glands in the neck. Eyes: No vision problems, no pain in or around the eyes, no discharge from the eyes, and no photophobia. Otolaryngeal: No hearing loss, no earache, the ears do not feel full, no discharge from the ears, no tinnitus, no epistaxis, no choking, and gums normal. Cardiovascular: No chest pain or discomfort, no palpitations, and no intermittent leg claudication. Pulmonary: Not feeling congested in the chest, no dyspnea, no orthopnea, no cough, no hemoptysis, and no wheezing. Gastrointestinal: Normal appetite, no dysphagia, no heartburn, and no regurgitation. No nausea and no vomiting. Bloating, abdominal pain, and diarrhea. No constipation. Genitourinary: No hematuria, no changes in urinary habits, no urinary loss of control, no dysuria, and no pain in the flank. No bowel/bladder changes. Endocrine: No polydipsia, no temperature intolerance, no excessive sweating, and no feeling weak. Musculoskeletal: No back pain, no pain in the pelvic girdle, no muscle aches, no muscle cramps, no muscle spasms, no localized joint pain, and no localized joint stiffness. Neurological: No dizziness, no vertigo, no lightheadedness, no fainting, no confusion, no memory lapses or loss, no speech difficulties, no motor disturbances, no difficulty with balance, and no sensory disturbances. Psychological: No anxiety, no depression, no sleep disturbances, and a desire to continue living. No homicidal thoughts and no interpersonal relationship problems. Skin: No change in skin texture. No skin lesions. Mental Status Includes: Mental Status from this encounter Description Oriented to time, place, and person Oriented correctly to time Oriented correctly to place No memory lapses or loss No anxiety [...] e Last Documented On 1 10:46AM ; [facility] Encounters Encounter Provider Location Date Check-In Time Check-Out Time Diagnosis Office Visit David Corbin DO [facility], [facility]. 06/05/19 18 1:36PM 5:41PM Abdominal Pain--rlq,Haley kopenia Insurance Includes: Active Insurance Policies Plan Name Member ID Group # Subscriber Relationship Effect ajay Dates 1 - Blue Medicare PPO [id number] Alem Posada Self Advance Directives Includes: Current Advance Directives Directive Pat Aware Third Green Party Effective Date Reviewed Sta tus Declined to provide Advanced Directive Yes 03/16/2020 Current a nd Verified Clinical Notes Includes: Clinical Notes from this encounter No Clinical Notes Recorded
--- OUTSIDE RECORDS SUMMARY | 2024-05-06 16:54 | XMS_ITS | Encounter Summary ---
Author Organization [facility] Address [address] [place] [address] Care Team Providers Care Geoduck Diver Name Role Phone Evelyn Morales MD Primary Care Provider Unavaila ble Andry Love MD Primary Care Provider Unavailable Fabio Watts MD Primary Care Provider Manuela Parr MD Primary Care Provider Eladia Haji PA-C Primary Care Provider Unavail able Keyana Wick DO Primary Care Provider Unavaila ble aSima Sandoval MD Primary Care Provider Unavaila ble Reason for Visit * Reason Onset Date Comments Special Procedure 06/10/2020 Encounter Details Date Type Department Care Team Description 06/10/2020 Telephone Gastroenterology - [place] [address] [place] [id number] Jorje Issa MD [address] [place] [address] Special Procedure Social History Tobacco Use Types Packs/Day Years [...] on file documented as of this encounter Plan of Treatment Not on file documented as of this encounter Visit Diagnoses Not on filedocumented in this encounter Care Teams Geoduck Diver Relationship Specialty Start Date End Date Evelyn Morales MD PCP - General Internal Medicine 06/10/20 09/11/20 Andry Love MD PCP - General Internal Medicine 09/12/2009/01 Fabio Watts MD [address] [place] [address] PCP - General Internal Medicine 09/14/21 10/31/21 Manuela Parr MD [address] [place] [address] PCP - General Internal Medicine 11/01/21 01/15/22 Eladia Haji PA-C [address] [place], [place] PCP - General Internal Medicine 01/16/22 05/30/22 Keyana Wick DO [address] [place], [place] PCP - General Internal Medicine 05/31/22 10/11/22 Saima Sandoval MD [address] [place], [place] PCP - General Internal Medicine 10/12/22 documented as of this encounter
--- OUTSIDE RECORDS SUMMARY | 2024-05-06 16:54 | XMS_ITS | Encounter Summary ---
Author Organization [facility] Address [address] [place] [address] Care Team Providers Care Magnet Maker Name Role Phone Manuela Parr MD Primary Care Provider [phone] Eladia Haji PA-C Primary Care Provider Unavail able Keyana Wick DO Primary Care Provider Unavaila Saima Reyes MD Primary Care Provider Unavailkandis chavira Encounter Details Date Type Department Care Team Description 12/19/2021 Test Rack Operator Report Medical Records [address] [place] [id number] Eladia Haji PA-C Social History Tobacco Use Types Packs/Day Years [...] on filedocumented in this encounter Care Teams Magnet Maker Relationship Specialty Start Date End Date Manuela Parr MD [address] [place], [place] PCP - General Internal Medicine 11/01/21 01/15/22 Eladia Haji PA-C [address] [place], [place] PCP - General Internal Medicine 01/16/22 05/30/22 Keyana Wick DO [address] [place], [place] PCP - General Internal Medicine 05/31/22 10/11/22 Saima Sandoval MD [address] [place] [id number] PCP - General Internal Medicine 10/12/22 documented as of this encounter
--- OUTSIDE RECORDS SUMMARY | 2024-05-06 16:54 | XMS_ITS | Encounter Summary ---
Author Organization [facility] Address [address] [place] [address] Care Team Providers Care Consulting Practice Manager Name Role Phone Saima Sandoval MD Primary Care Provider Unavaila Evelyn Norris MD Primary Care Provider Unavaila Andry Pino MD Primary Care Provider Unavailable Fabio Watts MD Primary Care Provider Manuela Parr MD Primary Care Provider Eladia Haji PA-C Primary Care Provider Unavail able Keyana Wick DO Primary Care Provider Unavaila Saima Reyes MD Primary Care Provider Unavailkandis chavira Encounter Details Date Type Department Care Team Description 05/25/2019 Refill Medicine/Pediatrics - [address] [phone] Saima Sandoval MD Social History Tobacco Use Types Packs/Day [...] on filedocumented in this encounter Care Teams Consulting Practice Manager Relationship Specialty Start Date End Date Saima Sandoval MD PCP - General Internal Medicine 02/03/19 06/09/20 Evelyn Morales MD PCP - General Internal Medicine 06/10/20 09/11/20 Andry Love MD PCP - General Internal Medicine 09/12/2009/01 Fabio Watts MD [address] [place] [address] PCP - General Internal Medicine 09/14/21 10/31/21 Manuela Parr MD [address] [place] [address] PCP - General Internal Medicine 11/01/21 01/15/22 Eladia Haji PA-C [address] [place] [address] PCP - General Internal Medicine 01/16/22 05/30/22 Keyana Wick DO [address] [place], [place] PCP - General Internal Medicine 05/31/22 10/11/22 Saima Sandoval MD [address] [place] [address] PCP - General Internal Medicine 10/12/22 documented as of this encounter
--- OUTSIDE RECORDS SUMMARY | 2024-05-06 16:54 | XMS_ITS | Encounter Summary ---
Author Organization [facility] Address [address] [place] [address] Care Team Providers Care State Game Warden Name Role Phone Evelyn Morales MD Primary Care Provider Unavaila Saima Reyes MD Primary Care Provider Unavaila Evelyn Norris MD Primary Care Provider Unavaila ble Andry Love MD Primary Care Provider Unavailable Fabio Watts MD Primary Care Provider Manuela Parr MD Primary Care Provider [phone] Eladia Haji PA-C Primary Care Provider Unavail able Keyana Wick DO Primary Care Provider Unavaila Samia Reyes MD Primary Care Provider Unavaila ble Reason for Visit * Reason Comments E-prescribe Rx Request Encounter Details Date Type Department Care Team Description 09/08/2018 Refill Adult Medicine - [place] [address] [place] [address] Sofie Donnelly PA-C E-prescribe Rx Request Social History Tobacco Use Types Packs/Day Years [...] Telephone Encounter - Evelyn Morales MD - 09/08/2018 3:43 PM EDT Please schedule follow-up * Telephone Encounter - Janis Rowan M.A. - 09/08/2018 1:43 PM EDT Lab Results Component Value Date CHOL 218 07/29/2018 LDL 113 07/29/2018 HDL 63 07/29/2018 TRIG 214 07/29/2018 * Telephone Encounter - Goldie Robles - 09/08/2018 11:31 AM EDT Patient would like script to be: E-PRESCRIBED/FAXED TO PHARMACY WHEN WAS THE PATIENT'S LAST APPOINTMENT IN ADULT MEDICINE? 06/23/2018 WHEN WAS THE LAST TIME THE PATIENT SAW THEIR PCP? 07/17/2017 Does patient have an upcoming appointment? LMOM for return phone call back (THE MEDICATION REQUESTED IS ON THE MED LIST ABOVE) All of the medications requested were on the CURRENT MEDS list Did you check the Pharmacy information above?: YES Patient wants: 90 -day supply Is this a mail order prescription request ? YES If the refill is from a FAXED refill request what is the RX # listed on the fax? N/A Patients current insurance carrier is: Payor[place] / Plan: BCBS MDCR-ADV PPO $25/$45 [place] / Product Type: MEDICARE [id number] documented in this encounter Plan of Treatment Not on file documented as of this encounter Visit Diagnoses Not on filedocumented in this encounter Care Teams State Game Warden Relationship Specialty Start Date End Date Evelyn Morales MD PCP - General Internal Medicine 06/21/11 02/02/19 Saima Sandoval MD PCP - General Internal Medicine 02/03/19 06/09/20 Evelyn Morales MD PCP - General Internal Medicine 06/10/20 09/11/20 Andry Love MD PCP - General Internal Medicine 09/12/2009/01 Fabio Watts MD [address] [place] [address] PCP - General Internal Medicine 09/14/21 10/31/21 Manuela Parr MD [address] [place] [address] PCP - General Internal Medicine 11/01/21 01/15/22 Eldaia Haji PA-C [address] [place] [address] PCP - General Internal Medicine 01/16/22 05/30/22 Keyana Wick DO [address] [place] [address] PCP - General Internal Medicine 05/31/22 10/11/22 Saima Sandoval MD [address] [place] [address] PCP - General Internal Medicine 10/12/22 documented as of this encounter
--- OUTSIDE RECORDS SUMMARY | 2024-05-06 16:54 | XMS_ITS | Encounter Summary ---
Author Organization [facility] Address [address] [place] [address] Care Team Providers Care Line Painting Machine Operator Name Role Phone Manuela Parr MD Primary Care Provider [phone] Eladia Haji PA-C Primary Care Provider Unavail able Keyana Wick DO Primary Care Provider Unavaila ble Saima Sandoval MD Primary Care Provider Unavaila ble Encounter Details Date Type Department Care Team Description 01/09/2022 Orders Only Cardio PVCA Diag Testing [address] [address] Eladia Haji PA-C Syncope and collapse (Primary Dx); Essential (primary) hypertension; Other amnesia Social History Tobacco Use Types Packs/Day Years [...] documented as of this encounter Results * ECHO COMPLETE WITH CONTRAST IF CLINICALLY INDICATED (02/09/2022) Eladia Haji PA-C CARDIOLOGY PVCA documented in this encounter Visit Diagnoses Diagnosis Syncope and collapse- Primary Essential (primary) hypertension Unspecified essential hypertension Other amnesia documented in this encounter Care Teams Line Painting Machine Operator Relationship Specialty Start Date End Date Manuela Parr MD [address] [place], [place] [phone] PCP - General Internal Medicine 11/01/21 01/15/22 Eladia Haji PA-C [address] [place] [address] PCP - General Internal Medicine 01/16/22 05/30/22 Keyana Wick DO [address] [place] [address] PCP - General Internal Medicine 05/31/22 10/11/22 Saima Sandoval MD [address] [place] [address] PCP - General Internal Medicine 10/12/22 documented as of this encounter
--- OUTSIDE RECORDS SUMMARY | 2024-05-06 16:54 | XMS_ITS | Encounter Summary ---
Author Organization [facility] Address [address] [place] [address] Care Team Providers Care Bag Bleacher Name Role Phone Evelyn Morales MD Primary Care Provider UnavailSaima Ospina MD Primary Care Provider Unavaila Evelyn Norris MD Primary Care Provider Unavaila Andry Pino MD Primary Care Provider Unavailable Fabio Watts MD Primary Care Provider Manuela Parr MD Primary Care Provider [phone] Eladia Haji PA-C Primary Care Provider Unavail able Keyana Wick DO Primary Care Provider Unavaila Saima Reyes MD Primary Care Provider Unavaila cait Encounter Details Date Type Department Care Team Description 09/17/2011 Office Lead Report Medical Records [address] [place] [address] Jodi George MD Social History Tobacco Use Types Packs/Day [...] on filedocumented in this encounter Care Teams Bag Bleacher Relationship Specialty Start Date End Date Evelyn Morales MD PCP - General Internal Medicine 06/21/11 02/02/19 Saima Sandoval MD PCP - General Internal Medicine 02/03/19 06/09/20 Evelyn Morales MD PCP - General Internal Medicine 06/10/20 09/11/20 Andry Love MD PCP - General Internal Medicine 09/12/2009/01 Fabio Watts MD [address] [place] [address] PCP - General Internal Medicine 09/14/21 10/31/21 Manuela Parr MD [address] [place] [address] PCP - General Internal Medicine 11/01/21 01/15/22 Eladia Haji PA-C [address] [place], [place] PCP - General Internal Medicine 01/16/22 05/30/22 Keyana Wick DO [address] [place] [address] PCP - General Internal Medicine 05/31/22 10/11/22 Saima Sandoval MD [address] [place], [place] PCP - General Internal Medicine 10/12/22 documented as of this encounter
--- OUTSIDE RECORDS SUMMARY | 2024-05-06 16:54 | XMS_ITS | Encounter Summary ---
Author Organization [facility] Address [address] [place] [address] Care Team Providers Care Field Servicer Name Role Phone Evelyn Morales MD Primary Care Provider UnavailSaima Ospina MD Primary Care Provider Unavaila Evelyn Norris MD Primary Care Provider Unavaila Andry Pino MD Primary Care Provider Unavailable Fabio Watts MD Primary Care Provider [phone] Manuela Parr MD Primary Care Provider Eladia Haji PA-C Primary Care Provider Unavail able Keyana Wick DO Primary Care Provider Unavaila Saima Reyes MD Primary Care Provider Unavaila cait Encounter Details Date Type Department Care Team Description 02/17/2013 Business Doc Medical Records [address] [place] [id number] Abstract, Provider Social History Tobacco Use Types Packs/Day Years [...] on filedocumented in this encounter Care Teams Field Servicer Relationship Specialty Start Date End Date Evelyn Morales MD PCP - General Internal Medicine 06/21/11 02/02/19 Saima Sandoval MD PCP - General Internal Medicine 02/03/19 06/09/20 Evelyn Morales MD PCP - General Internal Medicine 06/10/20 09/11/20 Andry Love MD PCP - General Internal Medicine 09/12/2009/01 Fabio Watts MD [address] [place] [address] PCP - General Internal Medicine 09/14/21 10/31/21 Manuela Parr MD [address] [place] [address] PCP - General Internal Medicine 11/01/21 01/15/22 Eladia Haji PA-C [address] [place], [place] PCP - General Internal Medicine 01/16/22 05/30/22 Keyana Wick DO [address] [place] PCP - General Internal Medicine 05/31/22 10/11/22 Saima Sandoval MD [address] [place], [place] PCP - General Internal Medicine 10/12/22 documented as of this encounter
--- OUTSIDE RECORDS SUMMARY | 2024-05-06 16:54 | XMS_ITS | Encounter Summary ---
Author Organization [facility] Address [address] [place] [address] Care Team Providers Care Ui Designer Name Role Phone Saima Sandoval MD Primary [...] Details Date Type Department Care Team Description 10/22/2019 Orders Only Medicine/Pediatrics - [address] [id number] Saima Sandoval MD Social History Tobacco Use [...] on filedocumented in this encounter Care Teams Ui Designer Relationship Specialty Start Date End Date Saima Sandoval MD PCP - General Internal Medicine 02/03/19 06/09/20 Evelyn Morales MD PCP - General Internal Medicine 06/10/20 09/11/20 Andry Love MD PCP - General Internal Medicine 09/12/2009/01 Fabio Watts MD [address] [place] [address] PCP - General Internal Medicine 09/14/21 10/31/21 Manuela Parr MD [address] [place] [address] PCP - General Internal Medicine 11/01/21 01/15/22 Eladia Haji PA-C [address] [place] [address] PCP - General Internal Medicine 01/16/22 05/30/22 Keyana Wick DO [address] [place], [place] PCP - General Internal Medicine 05/31/22 10/11/22 Saima Sandoval MD [address] [place] [address] PCP - General Internal Medicine 10/12/22 documented as of this encounter
--- OUTSIDE RECORDS SUMMARY | 2024-05-06 16:54 | XMS_ITS | Clinical Summary ---
[facility] Address [address] [place] [phone] Phone Care Team Providers Care Baggage And Mail Agent Name Role Phone Noel Tabares MD Unavailable Unavailable Reason for Visit and Chief Complaint The Chief Complaint is: Patient C/O swollen face ? sinus. for 2 weeks Problems Includes: Problems addressed during this encounter and other active Problems All Visits Onset Date Resolved Date Provider Condition S tatus Abdominal Pain--ruq 04/03/2016 Chantelle Coburn PA-C Active Last Documented On 7 9:37PM ; [facility] Abdominal Pain--rlq 03/22/2016 Chantelle Coburn PA-C Active Last Documented On 7 11:09AM ; [facility] Diarrhea 03/22/2016 Chantelle Coburn PA-C Active Last Documented On 7 11:09AM ; [facility] Hyperlipidemia Mixed 03/21/2016 Chantelle Coburn PA-C Active Last Documented On 7 11:13AM ; [facility] Plan of Treatment - Follow-up visit with dermatology if symptoms persist - Last Documented On 05/13/2017 5:12PM ; [facility] - Clinical summary provided to patient - Last Documented On 05/13/2017 5:12PM ; [facility] 1. allergic urticaria- advised to keep allergy diary avoid using any new cosmetics/lotions etc started on singulair 10mg once daily 6 day prednisone taper pack - Last Documented On 05/13/2017 5:12PM ; [facility] Instructions to patient Instructions for patient Last Documented On 8 7:24AM ; [facility] Education and Decision Aids were provided during visit for: Education and counseling Last Documented On 8 7:24AM ; [facility] Patient education about a pr oper diet Last Documented On 8 7:24AM ; [facility] Patient education about medi cation Last Documented On 8 7:24AM ; [facility] Self-management goals set fo r patient Last Documented On 8 7:24AM ; [facility] Assessments Includes: Assessments from this encounter Findings - Allergic urticaria - Last Documented On 05/13/2017 5:12PM ; [facility] Instructions Includes: Instructions from this encounter Instructions to patient Instructions for patient Last Documented On 8 7:24AM ; [facility] Education and Decision Aids were provided during visit for: Education and counseling Last Documented On 8 7:24AM ; [facility] Patient education about a pr oper diet Last Documented On 8 7:24AM ; [facility] Patient education about medi cation Last Documented On 8 7:24AM ; [facility] Self-management goals set fo r patient Last Documented On 8 7:24AM ; [facility] Medical Equipment - Implanted Devices Includes: Current Devices No Medical Equipment Recorded Medications Includes: Medications discussed during this encounter and other current Medications New / Renewed during this visit Sonia Stratton APRN on 05/10/2017 PredniSONE 10MG Oral Tablet Provider: Sonia Stratton APRN 6 day supply: 1 pack, 0 refills Diagnosis: Allergic urticaria Take as directed for 6 days. (taper pack) Pharmacy: [facility]/pharmacy #[id number] - [id number] , [facility], [id number] - Last Documented On 8 7:29AM By Sonia Stratotn APRN ; [facility] Singulair 10MG Oral Tablet Provider: Wayne Stratton APRN 30 day supply: 30 tablet, 2 refills Diagnosis: Allergic urticaria take one tab daily Pharmacy: [facility]/pharmacy #[id number] - [id number] , [facility], [address] - Last Documented On 8 7:29AM By Sonia Stratton APRN ; [facility] Current Medications (continue as prescribed) Pravastatin Sodium 40 MG Oral Tablet 03/08/2020 Prov ider: Diagnosis: Last Documented On 1 10:48AM By Jolanta Blair ; [facility] Losartan Potassium 50 MG Oral Tablet 03/08/2020 Prov ider: Diagnosis: Last Documented On 1 10:47AM By Jolanta Blair ; [facility] Escitalopram Oxalate 10 MG Oral Tablet 03/08/2020 Pr ovider: Diagnosis: Last Documented On 1 10:48AM By Jolanta Blair ; [facility] Lexapro 10 MG Tablet 12/15/2015 Provider: Diagnosis: Last Documented On 7 9:24AM By Bonnie Aguirre ; [facility] Past Medications on file MetroNIDAZOLE 0.75% External Cream 03/20/2017 - 07/18/2017 Provider: Sonia Stratton APRN 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 BID PRN Last Documented On 8 2:03PM By Sonia Stratton APRN ; [facility] Medications Administered Includes: Administered Medications from this encounter No Administered Medications Recorded Vital Signs Includes: Vital Signs from this encounter Vital Name 05/10/2017 07:24A Blood Pressure Sitting L 122/68 BP Cuff Size Regular Pulse Rate-Sitting (bpm) 85 Pulse Rhythm Regular Respiration Rate (breaths/min) 18 Temp-Tympanic (F) 97.8 Height (in) 66.5 Weight (lb) 144 Body Mass Index (kg/m2) 22.9 Body Surface Area (m2) 1.7 Oxygen Saturation (%) 98 Last Documented: On 05/10/2017 7:26AM ; [facility] Results Includes: Results discussed during this encounter No Results Recorded For Specified Dates History of Present Illness Includes: History of Present Illness from this encounter JOSE Posada is a 76 year old female. Patient presents today with complaints of post nasal drip, eyes puffy. She wakes up with her cheeks feeling swollen. She denies any change in soaps or makeup. She is using the same soap for 50 years. She has been taking claritin for her symptoms with no improvement. Social History Description Last Updated No tobacco use 03/08/2020 Last Documented On 8 7:23AM ; [facility] Smoking status : Former smoker Last Documented On 8 7:23AM ; [facility] Alcohol use 03/21/2016 Last Documented On 8 7:23AM ; [facility] Caffeine use 03/21/2016 Last Documented On 8 7:23AM ; [facility] Procedures and Surgical History Includes: Procedures from this encounter Procedures Code Diagnosis Performing Provider Service L ocation Service Date education and instructions Last Documented On 8 7:24AM ; [facility] blood pressure measured 2000F Last Documented On 8 7:24AM ; [facility] use of tobacco assessment performed 1000F Last Documented On 8 7:24AM ; [facility] medication list documented 1159F Last Documented On 8 7:26AM ; [facility] review of medications documented 1160F Last Documented On 8 7:26AM ; [facility] body mass index documented 3008F Last Documented On 8 7:26AM ; [facility] PQRI-Most recent systolic BP < 130 mm Hg 3074F Last Documented On 8 1:49PM ; [facility] PQRI-Most recent diastolic BP < 80 mm Hg 3078F Last Documented On 8 1:49PM ; [facility] Clinical summary provided to patient Last Documented On 8 7:24AM ; [facility] Surgical History Last Updated History of hysterectomy 1984 03/21/2016 Last Documented On 8 7:23AM ; [facility] Medical History Includes: Medical History addressed during this encounter Description Last Updated History of arthritis 03/21/2016 Last Documented On 8 7:23AM ; [facility] History of diverticulosis of intestine 0 03/21/2016 Last Documented On 8 7:23AM ; [facility] Family History Includes: Family History addressed during this encounter Description Last Updated Family history of cancer 04/03/2016 Last Documented On 8 7:23AM ; [facility] Family history of due to suicide 0 04/03/2016 Last Documented On 8 7:23AM ; [facility] Family history of diabetes mellitus 03/06 Last Documented On 8 7:23AM ; [facility] Family history of hyperlipidemia 017 Last Documented On 8 7:23AM ; [facility] Family history of hypertension 7 Last Documented On 8 7:23AM ; [facility] Family history of osteoporosis 7 Last Documented On 8 7:23AM ; [facility] Fraternal history of due to suicid e 04/03/2016 Last Documented On 8 7:23AM ; [facility] Maternal history of hypertension 017 Last Documented On 8 7:23AM ; [facility] Maternal history of osteoporosis 017 Last Documented On 8 7:23AM ; [facility] Paternal history of family history of ca ncer 04/03/2016 Last Documented On 8 7:23AM ; [facility] Paternal history of hyperlipidemia 04/03 Last Documented On 8 7:23AM ; [facility] Son's history of diabetes mellitus 04/03 Last Documented On 8 7:23AM ; [facility] Review of Systems Includes: Review of [...] the neck. Eyes: No vision problems, no dryness of the eyes, and no itching of the eyes. No pain in or around the eyes, no discharge from the eyes, and no photophobia. Otolaryngeal: No hearing loss, no earache, the ears do not feel full, no discharge from the ears, no tinnitus, no nasal discharge, no postnasal drip, no epistaxis, no nasal itching, no hoarseness, no sore throat, no choking, no teeth symptoms, gums normal, and no jaw pain. Cardiovascular: No chest pain or discomfort, no palpitations, the heart rate was not slow, the heart rate was not fast, no intermittent leg claudication, no cold hands or feet, and no varicose veins. Pulmonary: Not feeling congested in the chest, no dyspnea, no orthopnea, no cough, no hemoptysis, and no wheezing. Gastrointestinal: Normal appetite, no dysphagia, no heartburn, and no regurgitation. No nausea, no vomiting, no bloating, and no abdominal pain. No flatus, no diarrhea, and no constipation. Genitourinary: No hematuria, no changes in urinary habits, no urinary loss of control, no dysuria, and no pain in the flank. No genital lesion and no bowel/bladder changes. Endocrine: No polydipsia, no temperature intolerance, no excessive sweating, no feeling weak, no sexual complaints, and no hair symptoms. Musculoskeletal: No back pain, no pain in the pelvic girdle, no muscle aches, no muscle cramps, no muscle spasms, no localized joint pain, and no localized joint stiffness. Neurological: No dizziness, no vertigo, no lightheadedness, no fainting, no confusion, no memory lapses or loss, no taste disturbances, no speech difficulties, no motor disturbances, no difficulty with balance, and no sensory disturbances. Psychological: No anxiety, no depression, no sleep disturbances, and a desire to continue living. No homicidal thoughts, no emotional problems/concerns, and no interpersonal relationship problems. Skin: No dry skin. Pruritus, change in skin texture, and skin lesion: Nails are normal. Mental Status Includes: Mental Status from this [...] e Last Documented On 1 10:46AM ; [facility] Encounters Encounter Provider Location Date Check-In Time Check-Out Time Diagnosis Office Visit Sonia Stratton APRN [facility]. 05/11/19 18 7:30AM 7:34AM Allergic Urticaria Insurance Includes: Active Insurance Policies Plan Name Member ID Group # Subscriber Relationship Effect ajay Dates 1 - Medicare PPO [id number] Alem Posada Self Advance Directives Includes: Current Advance Directives Directive Pat Aware Third Democrat Effective Date Reviewed Sta tus Declined to provide Advanced Directive Yes 03/16/2020 Current a nd Verified Clinical Notes Includes: Clinical Notes from this encounter No Clinical Notes Recorded
--- OUTSIDE RECORDS SUMMARY | 2024-05-06 16:54 | XMS_ITS | Encounter Summary ---
Author Organization [facility] Address [facility] [place] [address] Care Team Providers Care Hand Kiss Setter Name Role Phone Manuela Parr MD Primary Care Provider [phone] Eladia Haji PA-C Primary Care Provider Unavail able Keyana Wick DO Primary Care Provider Unavaila ble Saima Sandoval MD Primary Care Provider Unavaila ble Reason for Visit * Reason Onset Date Comments EKG 12/20/2021 Encounter Details Date Type Department Care Team Description 12/20/2021 Telephone Cardio PVCA Diag Testing [address] [facility] [address] [place] [address] Yadira Buchanan PA-C [address] [place] [id number] EKG Social History Tobacco Use Types Packs/Day Years [...] encounter Miscellaneous Notes * Telephone Encounter - Yadira Buchanan PA-C - 12/20/2021 3:44 PM EDT EKG dated 12/14/2021 was reviewed. Recommend stress test with imaging documented in this encounter Plan of Treatment Not on file documented as of this encounter Visit Diagnoses Not on filedocumented in this encounter Care Teams Hand Kiss Setter Relationship Specialty Start Date End Date Manuela Parr MD [address] [place] [address] PCP - General Internal Medicine 11/01/21 01/15/22 Eladia Haji PA-C [address] [place] [address] PCP - General Internal Medicine 01/16/22 05/30/22 Keyana Wick DO [address] [place] [address] PCP - General Internal Medicine 05/31/22 10/11/22 Saima Sandoval MD [address] [place] [address] PCP - General Internal Medicine 10/12/22 documented as of this encounter
--- OUTSIDE RECORDS SUMMARY | 2024-05-06 16:54 | XMS_ITS | Encounter Summary ---
Author Organization [facility] Address [address] [place] [address] Care Team Providers Care Curtain Inspector Name Role Phone Evelyn Morales MD Primary Care Provider Unavaila Saima Reyes MD Primary Care Provider Unavaila ble Evelyn Morales MD Primary Care Provider Unavaila ble Andry Love MD Primary Care Provider Unavailable Fabio Watts MD Primary Care Provider Manuela Parr MD Primary Care Provider [phone] Eladia Haji PA-C Primary Care Provider Unavail able Keyana Wick DO Primary Care Provider Unavaila Saima Reyes MD Primary Care Provider Unavaila ble Reason for Visit * Reason Comments E-prescribe Rx Request Encounter Details Date Type Department Care Team Description 02/27/2018 Refill Adult Medicine - [facility] [address] [place] [address] vEelyn Morales MD E-prescribe Rx Request Social History Tobacco Use [...] encounter Miscellaneous Notes * Telephone Encounter - Jose Enrique High PA-C - 02/27/2018 12:06 PM EST Patient is due for follow-up, I would be willing to fill a 1 month supply to get to appointment once scheduled. * Telephone Encounter - Omid Dixon M.A. - 02/27/2018 9:21 AM EST Last visit 07/17 was a preop. Previous visit, PE, 01/08/17 to return in 6 months which is around sametime of preop. * Telephone Encounter - Bethany Torres - 02/27/2018 9:18 AM EST Patient would like script to be: E-PRESCRIBED/FAXED TO PHARMACY WHEN WAS THE PATIENT'S LAST APPOINTMENT IN ADULT MEDICINE? 07/17/17 WHEN WAS THE LAST TIME THE PATIENT SAW THEIR PCP? Same as above Does patient have an upcoming appointment? No-unable to reach left [facility] to call for appointment due to refill request. Appt due (THE MEDICATION REQUESTED IS ON THE MED LIST ABOVE) All of the medications requested were on the CURRENT MEDS list Did you check the Pharmacy information above?: NO Patient wants: 90 -day supply Is this a mail order prescription request ? NO If the refill is from a FAXED refill request what is the RX # listed on the fax? N/A Patients current insurance carrier is: Payor: [facility] / Plan: [facility] MEDICARE COMPLETE $15/$45 [facility] [id number] / Product Type: PPO [id number] documented in this encounter Plan of Treatment Not on file documented as of this encounter Visit Diagnoses Not on filedocumented in this encounter Care Teams Curtain Inspector Relationship Specialty Start Date End Date Evelyn Morales MD PCP - General Internal Medicine 06/21/11 02/02/19 Saima Sandoval MD PCP - General Internal Medicine 02/03/19 06/09/20 Evelyn Morales MD PCP - General Internal Medicine 06/10/20 09/11/20 Andry Love MD PCP - General Internal Medicine 09/12/2009/01 Faibo Watts MD [address] [place] [address] PCP - General Internal Medicine 09/14/21 10/31/21 Manuela Parr MD [address] [place] [address] PCP - General Internal Medicine 11/01/21 01/15/22 Eladia Haji PA-C [address] [place], [place] PCP - General Internal Medicine 01/16/22 05/30/22 Keyana Wick DO [address] [place] [address] PCP - General Internal Medicine 05/31/22 10/11/22 Saima Sandoval MD [address] [place], [place] PCP - General Internal Medicine 10/12/22 documented as of this encounter
--- OUTSIDE RECORDS SUMMARY | 2024-05-06 16:54 | XMS_ITS | Encounter Summary ---
Author Organization [facility] Address [address] [place] [address] Care Team Providers Care Event Set Up Specialist Name Role Phone Evelyn Morales MD Primary Care Provider Unavaila ble Saima Sandoval MD Primary Care Provider Unavaila ble Evelyn Morales MD Primary Care Provider Unavaila ble Andry Love MD Primary Care Provider Unavailable Fabio Watts MD Primary Care Provider Manuela Parr MD Primary Care Provider +1- [phone] Eladia Haji PA-C Primary Care Provider Unavail able Keyana Wick DO Primary Care Provider Unavaila ble Saima Sandoval MD Primary Care Provider Unavaila ble Reason for Referral * EXTERNAL (Urgent) - Authorized/Booked Specialty Diagnoses / Procedures Referred By Contheath t Referred To Contact Ophthalmology Procedures REFERRAL TO EXTERNAL OPHTHALMOLOGY Evelyn Morales MD [address] [place] [address] Jono Storm MD [address] [address] Referral ID Status Reason Start Date Expiration Date V isits Requested Visits Authorized SEE NOTE Authorized/B ooked 12/10/2017 03/13/2018 1 1 Reason for Visit * Reason Onset Date Comments Inoculator Feedback 12/10/2017 Encounter Details Date Type Department Care Team Description 12/10/2017 Telephone Adult Medicine - [place] [address] [place] [address] Evelyn Morales MD Inoculator Feedback () Social History Tobacco Use Types Packs/Day Years [...] encounter Miscellaneous Notes * Telephone Encounter - Fanny Troy - 12/10/2017 11:21 AM EDT Please review this patients new referral request. The referral has been pended. Please complete thefollowing: If approved> sign order If denied>please give instructions and route to your practice nursing pool. Practice nurse should inform referrals and the patient if denied. * Telephone Encounter - Courtney Bridges - 12/10/2017 11:15 AM EDT What insurance does the patient have today? Payor: [facility] / Plan: [facility] MEDIC[facility] COMPLETE$15/$45 [facility] [id number] / Product Type: PPO [id number] Effective 12/02/08: [employer] will not retro referral requests over 90 days. If request is for this please instruct patient to call the 800# on their insurance card to appeal. Do not submit a request. Referrals cannot be processed if the insurance is not accurate. If the insurance listed above in red is NO BILLING INFORMATION FOUND FOR THIS ENCOUTNER The patients correct insurance must be obtained and registered in [facility] or their referral can not be processed. Is this a retro request? NO. If yes for what date of service do you need the retro referral? N/A Who is calling to request this referral? pt If the caller is not the patient, what is their name? N/A Ask the patient WHO referred them to this specialty: Patient self referred FIRST and LAST NAME of SPECIALIST PATIENT is seeing: [facility] - Dr Storm What specialty is this? [place] DIAGNOSIS Patient is being seen for (Not a body part or a procedure): cataracts Have you seen this SPECIALIST for this PROBLEM/DX before?NO If YES, when: Have you checked REVIEW or the APPT DESK to see if this referral has already been done or has visits left? NO Is this visit:Initial Visit Address of Specialist: [address] [facility], [address] - [place], [place] Phone # of Specialist: [phone] Fax #: (if applicable): Does patient have an appointment scheduled?: YES Date of appointment- (including a retro-request): 12/12/2017 - 4 visits Is this appointment related to: Not MVA, WC or Surgery related documented in this encounter Plan of Treatment Not on file documented as of this encounter Visit Diagnoses Not on filedocumented in this encounter Care Teams Event Set Up Specialist Relationship Specialty Start Date End Date Evelyn Morales MD PCP - General Internal Medicine 06/21/11 02/02/19 Saima Sandoval MD PCP - General Internal Medicine 02/03/19 06/09/20 Evelyn Morales MD PCP - General Internal Medicine 06/10/20 09/11/20 Andry Love MD PCP - General Internal Medicine 09/12/2009/01 Fabio Watts MD [address] [place], [place] PCP - General Internal Medicine 09/14/21 10/31/21 Manuela Parr MD [address] [place], [place] PCP - General Internal Medicine 11/01/21 01/15/22 Eladia Haji PA-C [address] [place], [place] PCP - General Internal Medicine 01/16/22 05/30/22 Keyana Wick DO [address] [place], [place] PCP - General Internal Medicine 05/31/22 10/11/22 Saima Sandoval MD [address] [place], [place] PCP - General Internal Medicine 10/12/22 documented as of this encounter
--- OUTSIDE RECORDS SUMMARY | 2024-05-06 16:54 | XMS_ITS | Encounter Summary ---
Author Organization [facility] Address [address] [place] [address] Care Team Providers Care Cmm Inspector Name Role Phone Manuela Parr MD Primary Care Provider [phone] Eladia Haji PA-C Primary Care Provider Unavail able Keyana Wick DO Primary Care Provider Unavaila Saima Reyes MD Primary Care Provider Tiny chavira Encounter Details Date Type Department Care Team Description 01/12/2022 SC[facility] Medical Records [address] [place] [id number] [place] [address] Social History Tobacco Use Types Packs/Day Years [...] on filedocumented in this encounter Care Teams Cmm Inspector Relationship Specialty Start Date End Date Manuela Parr MD [address] [place] [address] PCP - General Internal Medicine 11/01/21 01/15/22 Eladia Haji PA-C [address] [place], [place] PCP - General Internal Medicine 01/16/22 05/30/22 Keyana Wick DO [address] [place], [place] PCP - General Internal Medicine 05/31/22 10/11/22 Saima Sandoval MD [address] [place] [address] PCP - General Internal Medicine 10/12/22 documented as of this encounter
--- OUTSIDE RECORDS SUMMARY | 2024-05-06 16:54 | XMS_ITS | Encounter Summary ---
Author Organization [facility] Address [address] [place] [address] Care Team Providers Care Brim Ironer Hand Name Role Phone Saima Sandoval MD Primary [...] Details Date Type Department Care Team Description 08/06/2019 [place] Medicine/Pediatrics [address] [phone] Saima Sandoval MD Social History Tobacco Use [...] on filedocumented in this encounter Care Teams Brim Ironer Hand Relationship Specialty Start Date End Date Saima Sandoval MD PCP - General Internal Medicine 02/03/19 06/09/20 Evelyn Morales MD PCP - General Internal Medicine 06/10/20 09/11/20 Andry Love MD PCP - General Internal Medicine 09/12/2009/01 Fabio Watts MD [address] [place] [address] PCP - General Internal Medicine 09/14/21 10/31/21 Manuela Parr MD [address] [place] [address] PCP - General Internal Medicine 11/01/21 01/15/22 Eladia Haji PA-C [address] [place] [address] PCP - General Internal Medicine 01/16/22 05/30/22 Keyana Wick DO [address] [place], [place] PCP - General Internal Medicine 05/31/22 10/11/22 Saima Sandoval MD [address] [place], [place] PCP - General Internal Medicine 10/12/22 documented as of this encounter
--- OUTSIDE RECORDS SUMMARY | 2024-05-06 16:54 | XMS_ITS | Encounter Summary ---
Author Organization [facility] Address [address] [place] [address] Care Team Providers Care Commercial Sales Director Name Role Phone Saima Sandoval MD Primary Care Provider Unavaila ble Evelyn Morales MD Primary Care Provider Unavaila ble Andry Love MD Primary Care Provider Unavailable Fabio Watts MD Primary Care Provider Manuela Parr MD Primary Care Provider [phone] Eladia Haji PA-C Primary Care Provider Unavail able Keyana Wick DO Primary Care Provider Unavaila ble Saima Sandoval MD Primary Care Provider Unavaila ble Reason for Visit * Reason Onset Date Comments Call From Insurance Co 07/30/2019 Encounter Details Date Type Department Care Team Description 07/30/2019 Telephone Adult Medicine [address] [address] Saima Sandoval MD Call From Insurance Co Social History Tobacco Use Types Packs/Day Years [...] encounter Miscellaneous Notes * Telephone Encounter - Courtney Cyrus - 08/06/2019 8:58 AM EDT It was the escitalopram that was ordered on 07/30 - please advise * Telephone Encounter - Bailee Lyle M.A. - 08/04/2019 11:58 AM EDT Was the lexapro name brand denied or the generic escitalopram? I was told [facility] the generic would be covered. I did not get the denial letter yet. I tried calling [facility] but wason the line for a long time Sent this msg [facility] * Telephone Encounter - Amy CarrilloPJessicaNJessica - 08/04/2019 11:28 AM EDT Pt states she got a denial notice For the escitalopram Please advise what she can take See message from 07/31/2019 why was this not covered * Telephone Encounter - Angela Zhang - 08/04/2019 11:18 AM EDT Patient calling states she is completely out of this med currently. Patient states she has been taking escitalopram and is unsure why PA was done for Lexapro. Patient states she would like to continue taking escitalopram because it works . Patient is requesting a call back in regards to this. Please advise. * Telephone Encounter - Margi Nava - 07/31/2019 10:57 AM EDT Call form [facility]. They state insurance will only cover escitalopram tabs. Please advise * Telephone Encounter - Bailee Lyle M.A. - 07/31/2019 9:12 AM EDT Lexapro was denied Covered alternatives are escitalopram,paroxetine, and paxil oral suspension [place] [phone] Prior Auth pool Bailee Lyle M.A. Regional Prior Authorizations Ext [phone] Fax: [phone] [phone] Prior Auth pool * Telephone Encounter - Saima Sandoval MD - 07/31/2019 9:10 AM EDT VM left * Telephone Encounter - Mague Roman M.A. - 07/31/2019 9:[address] requesting to speak with Dr Jensen * Telephone Encounter - Mar CarrilloP.NJessica - 07/30/2019 9:[address] Lamb x 3. Phone rings twice then hangs up. Unable to leave him a message at this time.Please transfer call to x [phone] or re-message to POD. * Telephone Encounter - Noelle Strong DO - 07/30/2019 9:02 AM EDT I think you forwarded to the wrong provider, I'm a splitting machine tender and this is a 79yr old patient. thanks * Telephone Encounter - Jessie Dodd - 07/30/2019 8:[address] Lamb would like to speak with Saima Jensen about the medication for the patient. documented in this encounter Plan of Treatment Not on file documented as of this encounter Visit Diagnoses Not on filedocumented in this encounter Care Teams Commercial Sales Director Relationship Specialty Start Date End Date Saima Sandoval MD PCP - General Internal Medicine 02/03/19 06/09/20 Evelyn Morales MD PCP - General Internal Medicine 06/10/20 09/11/20 Andry Love MD PCP - General Internal Medicine 09/12/2009/01 Fabio Watts MD [address] [place] [address] PCP - General Internal Medicine 09/14/21 10/31/21 Manuela Parr MD [address] [place] [address] PCP - General Internal Medicine 11/01/21 01/15/22 Eladia Haji PA-C [address] [place], [place] PCP - General Internal Medicine 01/16/22 05/30/22 Keyana Wick DO [address] [place], [place] PCP - General Internal Medicine 05/31/22 10/11/22 Saima Sandoval MD [address] [place], [place] PCP - General Internal Medicine 10/12/22 documented as of this encounter
--- OUTSIDE RECORDS SUMMARY | 2024-05-06 16:54 | XMS_ITS | Encounter Summary ---
Author Organization [facility] Address [address] [place] [address] Care Team Providers Care Die Try Out Worker Stamping Name Role Phone Andry Love MD Primary Care Provider Unavailable Fabio Watts MD Primary Care Provider Manuela Parr MD Primary Care Provider [phone] Eladia Haji PA-C Primary Care Provider Unavail able Keyana Wick DO Primary Care Provider Unavaila ble Saima Sandoval MD Primary Care Provider Unavaila ble Reason for Visit * Reason Comments E-prescribe Rx Request Encounter Details Date Type Department Care Team Description 11/06/2020 Refill Medicine/Pediatrics - [address] [phone] Evelyn Morales MD E-prescribe Rx Request Social History [...] file Not on file Not on file COVID-19 Exposure Response Date Recorded In the last month, have you been in contact with someone who was confirmed or suspected to have Coronavirus / COVID-19? No / Unsure 10/26/2020 2:40 PM EDT documented as of this encounter Miscellaneous Notes * Telephone Encounter - Parminder Flowers - 11/11/2020 1:53 PM EDT Patient would like script to be: E-PRESCRIBED/FAXED TO PHARMACY WHEN WAS THE PATIENT'S LAST APPOINTMENT IN ADULT MEDICINE? 08/16/20 WHEN WAS THE LAST TIME THE PATIENT SAW THEIR PCP? Same as above Does patient have an upcoming appointment? No- patient refused to book appointment (THE MEDICATION REQUESTED IS ON THE MED LIST ABOVE) All of the medications requested were on the CURRENT MEDS list Did you check the Pharmacy information above?: YES Patient wants: 30 -day supply Is this a mail order prescription request ? NO If the refill is from a FAXED refill request what is the RX # listed on the fax? N/A Patients current insurance carrier is: Payor: [facility]/MEDICARE PPO / Plan: [facility] PPO $25/$45 [place] / Product Type: MEDICARE [id number] documented in this encounter Plan of Treatment Not on file documented as of this encounter Visit Diagnoses Not on filedocumented in this encounter Care Teams Die Try Out Worker Stamping Relationship Specialty Start Date End Date Andry Love MD PCP - General Internal Medicine 09/12/2009/01 Fabio Watts MD [address] [place] [address] PCP - General Internal Medicine 09/14/21 10/31/21 Manuela Parr MD [address] [place] [address] PCP - General Internal Medicine 11/01/21 01/15/22 Eladia Haji PA-C [address] [place] [address] PCP - General Internal Medicine 01/16/22 05/30/22 Keyana Wick DO [address] [place] [address] PCP - General Internal Medicine 05/31/22 10/11/22 Saima Sandoval MD [address] [place] [address] PCP - General Internal Medicine 10/12/22 documented as of this encounter
--- OUTSIDE RECORDS SUMMARY | 2024-05-06 16:54 | XMS_ITS | Clinical Summary ---
Author Organization [facility] Address [address] [place] [phone] Phone Care Team Providers Care Patent Paralegal Name Role Phone Noel Tabares MD Unavailable Unavailable Reason for Visit and Chief Complaint CT: Abd & Pelvis w/ IV and Oral Contrast Problems Includes: Problems addressed during this encounter and other active Problems All Visits Onset Date Resolved Date Provider Condition S tatus Abdominal Pain--ruq 04/03/2016 Chantelle Coburn PA-C Active Last Documented On 7 9:37PM ; [facility] Abdominal Pain--rlq 03/22/2016 Chantelle Coburn PA-C Active Last Documented On 7 11:09AM ; [facility] Diarrhea 03/22/2016 Chantelle Coburn PA-C Active Last Documented On 7 11:09AM ; [facility] Hyperlipidemia Mixed 03/21/2016 Chantelle Coburn PA-C Active Last Documented On 7 11:13AM ; [facility] Plan of Treatment No Plan of Treatment [...] On 1 10:48AM By Jolanta Blair ; [facility] Losartan Potassium 50 MG Oral Tablet 03/08/2020 Prov ider: Diagnosis: Last Documented On 1 10:47AM By Jolanta Blair ; [facility] Escitalopram Oxalate 10 MG Oral Tablet 03/08/2020 Pr ovider: Diagnosis: Last Documented On 1 10:48AM By Jolanta Blair ; [facility] Lexapro 10 MG Tablet 12/15/2015 Provider: Diagnosis: Last Documented On 7 9:24AM By Bonnie Aguirre ; [facility] Medications Administered Includes: Administered Medications from [...] e Last Documented On 1 10:46AM ; [facility] Encounters Encounter Provider Location Date Check-In Time Check-Out Time Diagnosis CT: Abd & Pelvis w/ IV and Oral Contrast [facility] 06/04/2017 4:30PM 4:43PM Insurance Includes: Active Insurance Policies Plan Name Member ID Group # Subscriber Relationship Effect ajay Dates 1 - Blue Medicare PPO [id number] Alem Posada Self Advance Directives Includes: Current Advance Directives Directive Pat Aware Third Libertarian Effective Date Reviewed Sta tus Declined to provide Advanced Directive Yes 03/16/2020 Current a nd Verified Clinical Notes Includes: Clinical Notes from this encounter No Clinical Notes Recorded
--- OUTSIDE RECORDS SUMMARY | 2024-05-06 16:54 | XMS_ITS | Encounter Summary ---
Author Organization [facility] Address [address] [place] [address] Care Team Providers Care Resident Inspector Name Role Phone Manuela Parr MD Primary Care Provider [phone] Eladia Haji PA-C Primary Care Provider Unavail able Keyana Wick DO Primary Care Provider UnavailSaima Ospina MD Primary Care Provider Tiny chavira Encounter Details Date Type Department Care Team Description 12/18/2021 SCAN Medical Records [address] [place] [phone] Abstract, Provider Social History Tobacco Use Types [...] on file documented as of this encounter Procedures Procedure Name Priority Date/Time Associated Diagnosis Comments OUTSIDE LAB Routine 12/18/2021 documented in this encounter Results * OUTSIDE LAB (12/18/2021) Provider Default LAB documented in this encounter Visit Diagnoses Not on filedocumented in this encounter Care Teams Resident Inspector Relationship Specialty Start Date End Date Manuela Parr MD [address] [place] [address] PCP - General Internal Medicine 11/01/21 01/15/22 Eladia Haji PA-C [address] [place], [place] PCP - General Internal Medicine 01/16/22 05/30/22 Keyana Wick DO [address] [place] [address] PCP - General Internal Medicine 05/31/22 10/11/22 Saima Sandoval MD [address] [place] [address] PCP - General Internal Medicine 10/12/22 documented as of this encounter
--- OUTSIDE RECORDS SUMMARY | 2024-05-06 16:54 | XMS_ITS | Encounter Summary ---
Author Organization [facility] Address [address] [place] [address] Care Team Providers Care Scroll Machine Operator Name Role Phone Andry Love MD Primary Care Provider Unavailable Fabio Watts MD Primary Care Provider [phone] Manuela Parr MD Primary Care Provider [phone] Eladia Haji PA-C Primary Care Provider Unavail able Keyana Wick DO Primary Care Provider Unavaila Saima Reyes MD Primary Care Provider Unavailkandis chavira Encounter Details Date Type Department Care Team Description 01/07/2021 Refill Adult Medicine - [place] [address] [place] [address] Evelyn Morales MD Social History Tobacco Use [...] encounter Miscellaneous Notes * Telephone Encounter - Yun Malagon - 01/09/2021 9:43 AM EST Appt need [place] - 08/16/[address] Andrew Gonzalez - None Lab Results Component Value Date CHOL 232 02/03/2020 LDL 132 02/03/2020 HDL 56 02/03/2020 TRIG 224 02/03/2020 SGOT 31 02/03/2020 SGPT 43 02/03/2020 documented in this encounter Plan of Treatment Not on file documented as of this encounter Visit Diagnoses Not on filedocumented in this encounter Care Teams Scroll Machine Operator Relationship Specialty Start Date End Date Andry Love MD PCP - General Internal Medicine 09/12/2009/01 Fabio Watts MD [address] [place] [address] PCP - General Internal Medicine 09/14/21 10/31/21 Manuela Parr MD [address] [place] [address] PCP - General Internal Medicine 11/01/21 01/15/22 Eladia Haji PA-C [address] [place], [place] PCP - General Internal Medicine 01/16/22 05/30/22 Keyana Wick DO [address] [place], [place] PCP - General Internal Medicine 05/31/22 10/11/22 Saima Sandoval MD [address] [place], [place] PCP - General Internal Medicine 10/12/22 documented as of this encounter
--- OUTSIDE RECORDS SUMMARY | 2024-05-06 16:54 | XMS_ITS | Encounter Summary ---
Author Organization [facility] Address [address] [place] [address] Care Team Providers Care Ship Worker Name Role Phone Saima Sandoval MD Primary Care Provider Unavaila ble Reason for Visit * Reason Comments E-prescribe Rx Request Encounter Details Date Type Department Care Team Description 04/17/2024 Refill Cardio PVCA Diag Testing [address] [address] Eladia Haji PA-C E-prescribe Rx Request Social History Tobacco [...] on filedocumented in this encounter Care Teams Ship Worker Relationship Specialty Start Date End Date Saima Sandoval MD PCP - General Internal Medicine 10/12/22 documented as of this encounter
--- OUTSIDE RECORDS SUMMARY | 2024-05-06 16:54 | XMS_ITS | Encounter Summary ---
Author Organization [facility] Address [address] [place] [address] Care Team Providers Care Air Conditioner Installer Helper Name Role Phone Evelyn Morales MD Primary Care Provider Unavaila Saima Reyes MD Primary Care Provider Unavaila Evelyn Norris MD Primary Care Provider Unavaila ble Andry Love MD Primary Care Provider Unavailable Fabio Watts MD Primary Care Provider Manuela Parr MD Primary Care Provider [phone] Eladia Haji PA-C Primary Care Provider Unavail able Keyana Wick DO Primary Care Provider Unavaila Saima Reyes MD Primary Care Provider Unavaila ble Reason for Visit * Reason Comments E-prescribe Rx Request Encounter Details Date Type Department Care Team Description 04/09/2016 Refill Adult Medicine - [place] [address] [place] [address] Evelyn Morales MD E-prescribe Rx Request Social [...] Telephone Encounter - Chantelle Chavez L.P.N. - 04/10/2016 1:43 PM EST msg left to make appt * Telephone Encounter - Evelyn Moralse MD - 04/10/2016 12:15 PM EST Needs follow up now for 90 day refill. Needs to be seen every 6months to monitor her. Can refill 30day until seen. * Telephone Encounter - Kenna Cooley - 04/10/2016 9:11 AM EST Patient would like script to be: E-PRESCRIBED/FAXED TO PHARMACY WHEN WAS THE PATIENT'S LAST APPOINTMENT IN ADULT MEDICINE? 12/13/15 WHEN WAS THE LAST TIME THE PATIENT SAW THEIR PCP? 09/22/15 Does patient have an upcoming appointment? No-unable to reach left [facility] to call for appointment due to refill request. Appt due 06/2016 (THE MEDICATION REQUESTED IS ON THE MED LIST ABOVE) All of the medications requested were on the CURRENT MEDS list Did you check the Pharmacy information above?: YES Patient wants: 90 -day supply Is this a mail order prescription request ? YES Patients current insurance carrier is: Payor: [facility] / Plan: [facility] MEDICARE COMPLETE $15/$45 [facility] [address] / Product Type: PPO [id number] * Telephone Encounter - Eli Noemikimberly - 04/10/2016 9:11 AM EST Patient would like script to be: E-PRESCRIBED/FAXED TO PHARMACY WHEN WAS THE PATIENT'S LAST APPOINTMENT IN ADULT MEDICINE? 12/13/2015 WHEN WAS THE LAST TIME THE PATIENT SAW THEIR PCP? 09/22/2015 Does patient have an upcoming appointment? [facility]ill [facility]. Appt due overdue for follow-up. (THE MEDICATION REQUESTED IS ON THE MED LIST ABOVE) All of the medications requested were on the CURRENT MEDS list Did you check the Pharmacy information above?: YES Patient wants: 90 -day supply Is this a mail order prescription request ? YES Patients current insurance carrier is: Payor: [facility] / Plan: [employer] MEDICARE COMPLETE $15/$45 [facility] [address] / Product Type: PPO [id number] documented in this encounter Plan of Treatment Not on file documented as of this encounter Visit Diagnoses Not on filedocumented in this encounter Care Teams Air Conditioner Installer Helper Relationship Specialty Start Date End Date Evelyn Morales MD PCP - General Internal Medicine 06/21/11 02/02/19 Saima Sandoval MD PCP - General Internal Medicine 02/03/19 06/09/20 Evelyn Morales MD PCP - General Internal Medicine 06/10/20 09/11/20 Andry Love MD PCP - General Internal Medicine 09/12/2009/01 Fabio Watts MD [address] [place] [address] PCP - General Internal Medicine 09/14/21 10/31/21 Manuela Parr MD [address] [place] [address] PCP - General Internal Medicine 11/01/21 01/15/22 Eladia Haji PA-C [address] [place] [address] PCP - General Internal Medicine 01/16/22 05/30/22 Keyana Wick DO [address] [place] [address] PCP - General Internal Medicine 05/31/22 10/11/22 Saima Sandoval MD [address] [place] [address] PCP - General Internal Medicine 10/12/22 documented as of this encounter
--- OUTSIDE RECORDS SUMMARY | 2024-05-06 16:54 | XMS_ITS | Encounter Summary ---
Author Organization [facility] Address [address] [place] [address] Care Team Providers Care Mems Process Engineer Name Role Phone Evelyn Morales MD Primary Care Provider Unavaila Saima Reyes MD Primary Care Provider Unavaila Evelyn Norris MD Primary Care Provider Unavaila Andry Pino MD Primary Care Provider Unavailable Fabio Watts MD Primary Care Provider Manuela Parr MD Primary Care Provider [phone] Eladia Haji PA-C Primary Care Provider Unavail able Keyana Wick DO Primary Care Provider Unavaila Saima Reyes MD Primary Care Provider Unavaila cait Encounter Details Date Type Department Care Team Description 09/22/2013 Coil Machine Supervisor Report Medical Records [address] [place] [address] Lance Sutton MD Social History Tobacco Use Types Packs/Day [...] on filedocumented in this encounter Care Teams Mems Process Engineer Relationship Specialty Start Date End Date Evelyn Morales MD PCP - General Internal Medicine 06/21/11 02/02/19 Saima Sandoval MD PCP - General Internal Medicine 02/03/19 06/09/20 Evelyn Morales MD PCP - General Internal Medicine 06/10/20 09/11/20 Andry Love MD PCP - General Internal Medicine 09/12/2009/01 Fabio Watts MD [address] [place] [address] PCP - General Internal Medicine 09/14/21 10/31/21 Manuela Parr MD [address] [place] [address] PCP - General Internal Medicine 11/01/21 01/15/22 Eladia Haji PA-C [address] [place], [place] PCP - General Internal Medicine 01/16/22 05/30/22 Keyana Wick DO [address] [place] [address] PCP - General Internal Medicine 05/31/22 10/11/22 Saima Sandoval MD [address] [place], [place] PCP - General Internal Medicine 10/12/22 documented as of this encounter
--- OUTSIDE RECORDS SUMMARY | 2024-05-06 16:54 | XMS_ITS ---
Care Plan - [facility] Created on: May 06, 2024 Albino Alem Stacy : 1940 Sex: Female Author Organization [facility] Address [address] [place] [phone] Phone Care Team Providers Care Six Sigma Project Manager Name Role Phone Rayshawn LESLIE, Noel Ag Unavailable
--- OUTSIDE RECORDS SUMMARY | 2024-05-06 16:54 | XMS_ITS | Encounter Summary ---
Author Organization [facility] Address [address] [place] [address] Care Team Providers Care Statistical Clerk Advertising Name Role Phone Saima Sandoval MD Primary Care Provider Unavaila ble Evelyn Morales MD Primary Care Provider Unavaila ble Andry Love MD Primary Care Provider Unavailable Fabio Watts MD Primary Care Provider Manuela Parr MD Primary Care Provider [phone] Eladia Haji PA-C Primary Care Provider Unavail able Keyana Wick DO Primary Care Provider Unavaila Saima Reyes MD Primary Care Provider Unavaila ble Reason for Visit * Reason Onset Date Comments Prior Authorization 07/29/2019 Encounter Details Date Type Department Care Team Description 07/29/2019 Telephone Medicine/Pediatrics - [address] [id number] Saima Sandoval MD Prior Authorization Social History Tobacco Use Types Packs/Day Years [...] encounter Miscellaneous Notes * Telephone Encounter - Saima Sandoval MD - 07/31/2019 9:34 AM EDT Ok changed * Telephone Encounter - Bailee Lyle M.A. - 07/31/2019 9:25 AM EDT Please send new script to pharmacy the one sent states brand name medcally [place] [phone] Prior Auth crescencio Lyle M.A. [facility] Prior Authorizations Ext [phone] Fax: [phone] [phone] Prior Auth pool Pt state she take generic see below * Telephone Encounter - Courtney Bridges - 07/31/2019 8:49 AM EDT Pt states she takes the generic not the name brand escitalopram * Telephone Encounter - Courtney Bridges - 07/31/2019 8:47 AM EDT If you need to call [phone] * Telephone Encounter - Angela Zhang - 07/30/2019 3:05 PM EDT Patient calling back, states her insurance company contacted her today stating that the PA for Lexapro was denied. Patient is unsure what to do. Please advise, thank you. * Telephone Encounter - Bailee Lyle M.A. - 07/29/2019 4:12 PM EDT Resent with correct birthdate * Telephone Encounter - Bailee Lyle M.A. - 07/29/2019 11:42 AM EDT Prior auth done by form to [facility] for lexapro Continuation of therapy Dx anxiety * Telephone Encounter - Courtney Bridges - 07/29/2019 8:52 AM EDT Time sensitive if this could get done today - respond with a fax if you wish * Telephone Encounter - Courtney Bridges - 07/29/2019 8:47 AM EDT Prior Authorization for Medication-do not complete and send this encounter unless you have the fax from the pharmacy. Is this a Cover My Meds request: [place] of Medication Lexapro Dose of Medication 10 mg What is the RX # from the faxed refill? How does patient take this med? Take 1 tab daily What Pharmacy did the fax come from: Call from [facility] fax #: [facility] Information from fax: What Prescription Plan does the patient have? [facility] BIN/PCN if applicable: Cardholder ID:[id number] Person Code: Relationship Code: Help desk phone: [phone] documented in this encounter Plan of Treatment Not on file documented as of this encounter Visit Diagnoses Not on filedocumented in this encounter Care Teams Statistical Clerk Advertising Relationship Specialty Start Date End Date Saima Sandoval MD PCP - General Internal Medicine 02/03/19 06/09/20 Evelyn Morales MD PCP - General Internal Medicine 06/10/20 09/11/20 Andry Love MD PCP - General Internal Medicine 09/12/2009/01 Fabio Watts MD [address] [place] [address] PCP - General Internal Medicine 09/14/21 10/31/21 Manuela Parr MD [address] [place] [address] PCP - General Internal Medicine 11/01/21 01/15/22 Eladia Haji PA-C [address] [place] [address] PCP - General Internal Medicine 01/16/22 05/30/22 Keyana Wick DO [address] [place] [address] PCP - General Internal Medicine 05/31/22 10/11/22 Saima Sandoval MD [address] [place] [address] PCP - General Internal Medicine 10/12/22 documented as of this encounter
--- OUTSIDE RECORDS SUMMARY | 2024-05-06 16:54 | XMS_ITS | Encounter Summary ---
Author Organization [facility] Address [address] [place] [address] Care Team Providers Care Professional Caster Name Role Phone Evelyn Morales MD Primary Care Provider Unavaila Saima Reyes MD Primary Care Provider Unavaila Evelyn Norris MD Primary Care Provider Unavaila Andry Pino MD Primary Care Provider Unavailable Fabio Watts MD Primary Care Provider Manuela Parr MD Primary Care Provider [phone] Eladia Haji PA-C Primary Care Provider Unavail able Keyana Wick DO Primary Care Provider Unavaila Saima Reyes MD Primary Care Provider Unavaila ble Encounter Details Date Type Department Care Team Description 09/22/2018 Service Counter Cashier Report Medical Records [address] [place] [address] Ba Kramer MD [address] [place] [id number] Social History Tobacco Use Types Packs/Day Years [...] on filedocumented in this encounter Care Teams Professional Caster Relationship Specialty Start Date End Date Evelyn Morales MD PCP - General Internal Medicine 06/21/11 02/02/19 Saima Sandoval MD PCP - General Internal Medicine 02/03/19 06/09/20 Evelyn Morales MD PCP - General Internal Medicine 06/10/20 09/11/20 Andry Love MD PCP - General Internal Medicine 09/12/2009/01 Fabio Watts MD [address] [place] [address] PCP - General Internal Medicine 09/14/21 10/31/21 Manuela Parr MD [address] [place] [address] PCP - General Internal Medicine 11/01/21 01/15/22 Eladia Haji PA-C [address] [place] [address] PCP - General Internal Medicine 01/16/22 05/30/22 Keyana Wick, [address] [place] [address] PCP - General Internal Medicine 05/31/22 10/11/22 Saima Sandoval MD [address] [place] [address] PCP - General Internal Medicine 10/12/22 documented as of this encounter
--- OUTSIDE RECORDS SUMMARY | 2024-05-06 16:54 | XMS_ITS | Encounter Summary ---
Author Organization [facility] Address [address] [place] [address] Care Team Providers Care Supervisor Beam Department Name Role Phone Evelyn Morales MD Primary Care Provider Unavaila Saima Reyes MD Primary Care Provider Unavaila Evelyn Norris MD Primary Care Provider Unavaila Andry Pino MD Primary Care Provider Unavailable Fabio Watts MD Primary Care Provider Manuela Parr MD Primary Care Provider [phone] Eladia Haji PA-C Primary Care Provider Unavail able Keyana Wick DO Primary Care Provider UnavailSaima Ospina MD Primary Care Provider Unavaila cait Encounter Details Date Type Department Care Team Description 08/04/2018 Refill Adult Medicine - [address] [address] Sofie Donnelly PA-C Social History Tobacco Use Types Packs/Day [...] Telephone Encounter - Chantelle Chavez L.P.N. - 08/05/2018 9:14 AM EDTFrom: Alem Posada To: Sofie Donnelly PA-C Sent: 08/04/2018 9:48 PM EDT Subject: Medication Renewal Request Original authorizing provider: Sofie Donnelly PA-C Alem Posada would like a refill of the following medications: pravastatin (PRAVACHOL) 40 MG tablet [Sofie Donnelly PA-C] Preferred pharmacy: [facility] - [address] Comment: [facility], Pravastatin 40 mg. 90 day documented in this encounter Plan of Treatment Not on file documented as of this encounter Visit Diagnoses Not on filedocumented in this encounter Care Teams Supervisor Beam Department Relationship Specialty Start Date End Date Evelyn Morales MD PCP - General Internal Medicine 06/21/11 02/02/19 Saima Sandoval MD PCP - General Internal Medicine 02/03/19 06/09/20 Evelyn Morales MD PCP - General Internal Medicine 06/10/20 09/11/20 Andry Love MD PCP - General Internal Medicine 09/12/2009/01 Fabio Watts MD [address] [place], [place] PCP - General Internal Medicine 09/14/21 10/31/21 Manuela Parr MD [address] [place] PCP - General Internal Medicine 11/01/21 01/15/22 Eladia Haji PA-C [address] [place], [place] PCP - General Internal Medicine 01/16/22 05/30/22 Keyana Wick DO [address] [place] PCP - General Internal Medicine 05/31/22 10/11/22 Saima Sandoval MD [address] [place] PCP - General Internal Medicine 10/12/22 documented as of this encounter
== END 2024-05-06 14:28 | disposition home or self-care (01) ==
LOC: HO.HMCFM 14:02
PROVIDERS: PCP Physician Assistant; Visit Provider Physician Assistant
DX: F03.A0 Unspecified dementia, mild, without behavioral disturbance, psychotic disturbance, mood disturbance, and anxiety (principal); F41.8 Other specified anxiety disorders; G47.00 Insomnia, unspecified; I10 Essential (primary) hypertension; E78.2 Mixed hyperlipidemia

== ENCOUNTER 2024-06-03 10:02 | Outpatient (AMB) | payer BC, SELFPAY ==
--- NOTE | 2024-06-03 10:11 | A.OFFPC_ITS ---
Vital Signs 06/03/24 10:20 Height 5 ft 7 in Weight 157 lb BMI 24.6 BP 104/64 Blood Pressure Location Rt brachial Position Sitting Respiration 14 Pulse 63 Pulse Source Pulse Oximeter Pulse Oximetry (%) 97 Oxygen Delivery Method Room Air Intake Visit Reasons: meds and labs Intake Note: Follow up medication and labs Rubber Process Hand Required: No Allergies No Known Allergies Allergy (Verified 06/03/24 10:12) Medication List - Last Reconciled 06/03/24 by Eladia Haji PA-C albuterol sulfate 90 mcg/actuation 2 puffs inhalation Q6H PRN amitriptyline 10 mg PO BEDTIME amlodipine 5 mg PO DAILY cetirizine (Zyrtec) 10 mg PO DAILY PRN donepezil 10 mg PO DAILY escitalopram oxalate 20 mg PO DAILY losartan 25 mg PO DAILY memantine mg PO rosuvastatin 5 mg PO DAILY Tobacco use date assessed: 06/03/24 Fall risk assessment: 1 Fall in past year Last assessed Fall Risk: 06/03/24 Dental Screening Dental Screen Date: 10/31/23 HPI meds and labs HPI Details Patient is an 83-year-old female who presents today for a follow up. Forgot to get labs done prior to today's appointment. Neuro: Was diagnosed with dementia and had a second opinion at [facility] (in [place]). She is currently on Aricept, recently started on namenda and an SSRI. She has been experiencing some headaches but does feel that they are better since starting the amitriptyline. Psych: Sleep is improved with the amitriptyline. She is still on the Lexapro 20 mg and feels that this is effective. CV: At our last visit blood pressures were running a little on the that we reduced the losartan. Blood pressure today in the office is 104/64. Blood pressures at home have been low still. She is currently on losartan 25 mg, amlodipine 5 mg and her blood pressure today in the office is 122/60. Cholesterol is controlled with Crestor 5 mg. She does admit today that she is sometimes getting pain and shortness a breath. It was usually exertional and improved rest she is not currently having any symptoms. This has been going on for the last 6 months or so. She is trying to remain active but does find herself getting a bit winded and not able to do as much as she used to do or would like to do. GI: Still experiences diarrhea on and off. Labs were overall reassuring. Had an appointment with GI in December. She is using the Imodium as needed. [facility] Medical History (Updated 06/03/24 @ 10:29 by Eladia Haji PA-C) Memory changes Vision changes IBS (irritable bowel syndrome) Incontinence High cholesterol HTN (hypertension) Surgical History H/O: hysterectomy Family History Maternal Grandfather FH: mental illness Mother High blood pressure High cholesterol Father High blood pressure High cholesterol Social History (Updated 03/05/24 @ 13:23 by Cha Gifford CMA) Housing: House Alcohol intake: current Patient Tobacco Use Status: Former Tobacco user (quit at 26 years old) Cigarette Packs Per Day: 0.5 Years Smoked: 10 e-Cigarette/Vaping Use: Never Used Second Hand Smoke Exposure: No service: No Current occupational status: retired Current occupational exposures/hazards: No Cognitive needs: No Hearing needs: No Vision needs: No Questionnaire Thrive Questionnaire Date Thrive assessed: 03/05/24 I am a: Patient What is your living situation today?: I have a steady place to live Within the past 12 months, did the food you bought not last and you didn't have the money to get more?: Never true Within the past 12 months, did you worry whether your food would run out before you got money to buy more?: Never true Do you have trouble paying for medicines?: No Do you have trouble getting transportation to medical appointments?: No Do you have trouble paying your heating and electricity bill?: No Do you have trouble taking care of your child, family member or friend?: No Do you have trouble with day-to-day activities such as bathing, preparing meals, shopping, managing finances, etc.?: No Are you currently unemployed and looking for a job?: No Are you interested in more education?: No Please select the resources that you would like help with: None Currently or been in a relationship where the following occur: No concerns r eported THRIVE Score: 0 AUDIT C Alcohol Use Questionnaire (AUDIT-C) 1. How often do you have a drink containing alcohol?: Monthly or less 2. How many drinks containing alcohol do you have on a typical day when you are drinking?: 1 or 2 3. How often do you have six or more drinks on one occasion?: Never Total Score: 1 HERLINDA-7 AMB Questionnaire HERLINDA-7 Date HERLINDA - 7 assessed: 10/31/23 Source: Developed by Drs. Agustin Michaud, Sheela Black, Leoncio Tee and colleagues, with an educational dorene from [employer]. Physical exam (Primary Care) Vital Signs: Last Vital Signs Pulse 63 06/03/24 10:20 Resp 14 06/03/24 10:20 BP 104/64 06/03/24 10:20 Pulse Ox 97 06/03/24 10:20 Oxygen Delivery Method Room Air 06/03/24 10:20 BMI result Body Mass Index 24.6 Tobacco/Smoking Status: Tobacco use Status Tobacco use date assessed 06/03/24 06/03/24 10:13 Patient Tobacco Use Status Former Tobacco user (quit at 06/03/24 10:13 26 years old) e-Cigarette/Vaping Use Never Used 06/03/24 10:13 Thrive Assessment: Date of Thrive Assessment Date Thrive assessed 03/05/24 06/03/24 10:13 Currently or been in a relationship where the following occur: No concerns reported Const Orientation/consciousness: patient oriented x3 HENMT Ears: hearing grossly normal bilaterally Neck Thyroid: Thyroid normal Lymphatic: no lymphadenopathy noted Resp Auscultation: clear to auscultation bilaterally Cardio Rate: regular rate Rhythm: regular rhythm Heart sounds: S1 normal heart sound present and S2 normal heart sound present GI Inspection: Yes normal to inspection Palpation (GI): Soft to palpation and Other GI palpation findings present (nontender, no cva tenderness) Auscultation: normoactive bowel sounds Rectal Exam - Female: deferred Skin General skin exam: no rashes or lesions noted Neuro General: patient oriented x3, gait normal and no focal motor deficits Office Procedures EKG Details: EKG today in the office is normal sinus rhythm at a rate of 63 beats per minute with nonspecific STT wave abnormalities. No prior study to compare. EKG interpreted by myself. 48512-[id number], Complete Coding Level of Care Code Est Pt Level 4 (48588) Complex EM visit Add On G2211 Diagnoses Mixed hyperlipidemia E78.2 Hyperlipidemia type: mixed hyperlipidemia Primary hypertension I10 Hypertension type: primary hypertension Anxiety with depression F41.8 MOREL (dyspnea on exertion) R06.09 Chest pain R07.9 CPT Codes EKG - CPT: 02711-Vesadasiatilqwiju, Complete ([id number]) Assessment & Plan Assessment & Plan (1) Hyperlipidemia: Code(s): E78.5 - Hyperlipidemia, unspecified Category: Medical Qualifiers: Hyperlipidemia type: mixed hyperlipidemia Qualified Code(s): E78.2 - Mixed hyperlipidemia Plan: Continue Crestor Lipids and LFTs ordered (2) HTN (hypertension): Code(s): I10 - Essential (primary) hypertension Category: Medical Qualifiers: Hypertension type: primary hypertension Qualified Code(s): I10 - Essential (primary) hypertension Plan: still having some low bps we will d/c losartan (3) Anxiety with depression: Code(s): F41.8 - Other specified anxiety disorders Category: Medical Plan: Currently well-controlled with Lexapro. Continue current regimen (4) MOREL (dyspnea on exertion): Code(s): R06.09 - Other forms of dyspnea Category: Medical Plan: Chest x-ray and stress test ordered. Echo ordered. We will follow up pending test results. Advised to complete labs. (5) Chest pain: Code(s): R07.9 - Chest pain, unspecified Category: Medical Plan: As above. Warning signs of chest pain that would require emergent medical treatment were discussed. Orders: Orders CA stress test Today E78.2 - Mixed hyperlipidemia, I10 - Essential (primary) hypertension, R06.09 - Other forms of dyspnea, R07.9 - Chest pain, unspecified CA echo transthoracic complete Today E78.2 - Mixed hyperlipidemia, I10 - Essential (primary) hypertension, R06.09 - Other forms of dyspnea, R07.9 - Chest pain, unspecified NM cardiolite stress test Today R07.9 - Chest pain, unspecified AMB EKG-In Office Today R07.9 - Chest pain, unspecified XR chest 2V Today R06.09 - Other forms of dyspnea, R07.9 - Chest pain, unspecified Medications: Discontinued losartan Discontinued Reason: Doctor's Order 25 mg PO DAILY 90 tabs 1RF Patient Instructions: stop losartan- blood pressures still low. continue amlodipine 5 mg they will call you to schedule the stress test and echo (ultrasound of the heart). You do not need to make an appointment for the xray of the chest but you can do it before your heart tests or on the same day.
[2024-06-03 10:20] VITALS: BP 104/64; PULSE 63; RESP 14; O2SAT 97; BMI 24.6
--- OUTSIDE RECORDS SUMMARY | 2024-06-03 11:35 | XMS_ITS | Encounter Summary ---
Author Organization [facility] Address [address] [place] [address] Care Team Providers Care Waste Water Plant Operator Name Role Phone Andry Love MD Primary Care Provider Unavailable Fabio Watts MD Primary Care Provider Manuela Parr MD Primary Care Provider [phone] Eladia Haji PA-C Primary Care Provider Unavail able Keyana Wick DO Primary Care Provider Unavaila Saima Reyes MD Primary Care Provider Unavailkandis chavira Encounter Details Date Type Department Care Team Description 01/07/2021 Refill Adult Medicine - [place] [address] [place] [address] Evelyn Morales MD Social History Tobacco Use [...] on filedocumented in this encounter Care Teams Waste Water Plant Operator Relationship Specialty Start Date End Date Andry Love MD PCP - General Internal Medicine 09/12/2009/01 Fabio Watts MD [address] [place] [address] PCP - General Internal Medicine 09/14/21 10/31/21 Manuela Parr MD [address] [place] [address] PCP - General Internal Medicine 11/01/21 01/15/22 Eladia Haji PA-C [address] [place], [place] PCP - General Internal Medicine 01/16/22 05/30/22 Keyana Wick DO [address] [place], [place] PCP - General Internal Medicine 05/31/22 10/11/22 Saima Sandoval MD [address] [place], [place] PCP - General Internal Medicine 10/12/22 documented as of this encounter
--- OUTSIDE RECORDS SUMMARY | 2024-06-03 11:35 | XMS_ITS | Encounter Summary ---
Author Organization [facility] Address [address] [place] [address] Care Team Providers Care Skin Care Therapist Name Role Phone Andry Love MD Primary Care Provider Unavailable Fabio Watts MD Primary Care Provider [phone] Manuela Parr MD Primary Care Provider [phone] Eladia Haji PA-C Primary Care Provider Unavail able Keyana Wick DO Primary Care Provider Unavaila ble Saima Sandoval MD Primary Care Provider Unavaila ble Reason for Visit * Reason Comments E-prescribe Rx Request Encounter Details Date Type Department Care Team Description 01/05/2021 Refill Adult Medicine - [address] [address] Evelyn Morales MD E-prescribe Rx Request Social [...] encounter Miscellaneous Notes * Telephone Encounter - Kriss Terrell - 01/05/2021 11:40 AM EDT Patient would like script to be: E-PRESCRIBED/FAXED TO PHARMACY WHEN WAS THE PATIENT'S LAST APPOINTMENT IN ADULT MEDICINE? 08/16/2020 WHEN WAS THE LAST TIME THE PATIENT SAW THEIR PCP? Same as above Does patient have an upcoming appointment? No[facility]. Appt due 02/15 (THE MEDICATION REQUESTED IS ON THE MED [...] N/A Patients current insurance carrier is: Payor: [facility]/MEDICARE PPO / Plan: [facility] MDCR-ADV PPO $25/$45 [place] / Product Type: MEDICARE [id number] documented in this encounter Plan of Treatment Not on file documented as of this encounter Visit Diagnoses Not on filedocumented in this encounter Care Teams Skin Care Therapist Relationship Specialty Start Date End Date Andry Love MD PCP - General Internal Medicine 09/12/2009/01 Fabio aWtts MD [address] [place] [address] PCP - General Internal Medicine 09/14/21 10/31/21 Manuela Parr MD [address] [place], [place] PCP - General Internal Medicine 11/01/21 01/15/22 Eladia Haji PA-C [address] [place], [place] PCP - General Internal Medicine 01/16/22 05/30/22 Keyana Wick DO [address] [place], [place] PCP - General Internal Medicine 05/31/22 10/11/22 Saima Sandoval MD [address] [place] [address] PCP - General Internal Medicine 10/12/22 documented as of this encounter
--- OUTSIDE RECORDS SUMMARY | 2024-06-03 11:35 | XMS_ITS | Encounter Summary ---
Author Organization [facility] Address [address] [place] [address] Care Team Providers Care Services Program Manager Name Role Phone Evelyn Morales MD Primary Care Provider Unavaila Saima Reyes MD Primary Care Provider Unavaila Evelyn Norris MD Primary Care Provider Unavaila Andry Pino MD Primary Care Provider Unavailable Fabio Watts MD Primary Care Provider Manuela Parr MD Primary Care Provider [phone] Eladia Haji PA-C Primary Care Provider Unavail able Keyana Wick DO Primary Care Provider Unavaila Saima Reyes MD Primary Care Provider Unavaila cait Encounter Details Date Type Department Care Team Description 09/22/2013 Relocation Services Specialist Report Medical Records [address] [place] [address] Lance Sutton MD Social History Tobacco Use [...] on filedocumented in this encounter Care Teams Services Program Manager Relationship Specialty Start Date End Date Evelyn Morales MD PCP - General Internal Medicine 06/21/11 02/02/19 Saima Sandoval MD PCP - General Internal Medicine 02/03/19 06/09/20 Evelyn Morales MD PCP - General Internal Medicine 06/10/20 09/11/20 Andry Love MD PCP - General Internal Medicine 09/12/2009/01 Fabio Watts MD [address] [place] [address] PCP - General Internal Medicine 09/14/21 10/31/21 Manuela Parr MD [address] [place] [address] PCP - General Internal Medicine 11/01/21 01/15/22 Eladia Haji PA-C [address] [place], [place] PCP - General Internal Medicine 01/16/22 05/30/22 Keyana Wick DO [address] [place] [address] PCP - General Internal Medicine 05/31/22 10/11/22 Saima Sandoval MD [address] [place], [place] PCP - General Internal Medicine 10/12/22 documented as of this encounter
--- OUTSIDE RECORDS SUMMARY | 2024-06-03 11:35 | XMS_ITS | Clinical Summary ---
Author Organization [facility] Address [address] [place] [address] Care Team Providers Care Postdoctoral Research Fellow Name Role Phone Saima Sandoval MD Primary Care Provider Unavaila ble Allergies Active Allergy Reactions Severity Noted Date Comments Bee Stings 01/06/2015 Medications Medication Sig Dispensed Refills Start Date End Date Status Multiple Vitamin (MULTIVITAMIN OR) Take by mouth daily. 0 Active Cholecalciferol (VITAMIN D) 1000 UNITS Tab Take by mouth. 0 Active hydrochlorothiazide (HYDRODIURIL) 25 MG tablet 0 09/09/2021 Active losartan (COZAAR) 100 MG tablet Take 100 mg by mouth daily. 0 Active escitalopram (LEXAPRO) 10 MG tablet TAKE 1 TABLET DAILY 90 Tablet 0 10/17/2021 Active rosuvastatin (CRESTOR) 5 MG tablet Take 1 Tablet by mouth daily. 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 Overview: Partial on right 09/16/15 , Dr Owens, CRP, glucose, cbc and ESR nl, AV nicking, Anxiety 05/28/2011 Mixed hyperlipidemia 11/26/2010 Diverticulosis 11/19/2010 Overview: Incidental finding on colonoscopy Vitamin D deficiency 11/19/2010 Overview: Add vit D 1000 iu daily 11/2010 Osteopenia 11/17/2010 Overview: On fosamax for 4 to 5 yrs., stopped 10/2010, last bone density ?2009 Kidney stones 11/17/2010 Overview: Stone 7 mm right U/S 12/15/092009, sees Dr George Hypercholesteremia 11/17/2010 Endometriosis 11/17/2010 Overview: FLAQUITO/oophorectomy 1983, sees Dr Toribio, last pap 05/2010 Family history of colon cancer 1 Overview: Father 64 History of colonic polyps 11/17/2010 Overview: Sees Dr Velasquez, last colonoscopy 3 years ago. Encounters Date Type Specialty Care Team Description 04/17/2024 Refill Cardiology Eladia Haji PA-C E-prescribe Rx Request 03/19/2024 Refill Cardiology Eladia Haji PA-C E-prescribe Rx Request from Last 3 Months Immunizations Name Administration Dates Next Due COVID-19 (Moderna) PT Reported 02/19/2022,2020,05/07/2020 Influenza (> 6 Months) 01/06/2015,2013,02/17/2013,11/18,11/17/2010 Influenza Flu (PT Reported) 01/18/2019 Influenza Vaccine-quadrivale nt 4 Years Plus 01/08/2017 Influenza vaccine high dose age 65 and over 12/03/2019 Pneumoccoccal(Adult) Polysac charide PPSV23 10/04/2003 Pneumococcal Conjugate PCV-13 01/06/2015 TD (STATE SUPPLIED FOR ADULT S AND CHILDREN) 09/01/2001 Tdap 02/17/2013 Zostavax 01/12/2008 Family History Medical History Relation Name Comments No Known Problems Brother 1 Depression Brother 2 No Known Problems Daughter CA Colon Father No Known Problems Maternal Grandfather No Known Problems Maternal Grandmother Cholesterol Level Mother Hypertension Mother dementia Mother No Known Problems Other Pulmonary embolism Paternal Grandfather No Known Problems Paternal Grandmother No Known Problems Sister No Known Problems Son 1 Cancer, Other Son 2 CA Breast Negative Hx Relation Name Status Comments Brother 1 (Age 25) suicide Brother 2 Daughter Alive Father (Age 64) colon canc er, athrerosclerosis at autopsy Maternal Grandfather Maternal Grandmother Mother (Age 87) Other Paternal Grandfather Paternal Grandmother Sister Son 1 Alive Son 2 Social History Tobacco Use Types Packs/Day Years Used Date Smoking Tobacco: Former Cigarettes 0.3 10 Q uit: 03/04/1969 Smokeless Tobacco: Never Alcohol Use Standard Drinks/Week Comments Yes 0 (1 standard drink = 0.6 oz pur e alcohol) occasional Sex Assigned at Date Recorded Not on file Job Start Date Occupation Industry Not on file Not on file Not on file Last Filed Vital Signs Vital Sign Reading Time Taken Comments Blood Pressure 130/70 01/16/2022 1:39 PM EST Pulse 80 10/30/2021 10:21 AM EDT Temperature 35.8 ??C (96.4 ??F) 10/30/2021 10:21 AM E DT Respiratory Rate 16 10/30/2021 10:21 AM EDT Oxygen Saturation 97% 09/14/2021 9:54 AM EDT Inhaled Oxygen Concentration - - Weight 66.2 kg (146 lb) 02/09/2022 10:05 AM EST Height 170.2 cm (5' 7 ) 02/09/2022 10:05 AM EST Body Mass Index 22.87 02/09/2022 10:05 AM EST Plan of Treatment Health Maintenance Due Date Last Done Comments SHINGLES VACCINE (2 of 3) 03/08/2008 01/12/2008 PNEUMOCOCCAL VACCINE (3 - PP SV23 or PCV20) 01/07/2016 01/06/2015, 10/04/2003 BONE DENSITY SCREENING 01/10/2018 6, 01/11/2016 (External Completion), 12/02/2012 (External Completion of test per patient (Patient reports normal results)), Additional history exists COLON CANCER SCREENING 02/23/2020 5, 02/22/2015 (External Completion), 03/25/2009 (Completed), Additional history exists MAMMOGRAM 10/26/2021 10/26/2020, 11/2019, 02/03/2019, Additional history exists DTAP/TDAP/TD (2 - Td or Tdap) 02/17/2023 02/17/2013, 09/01/2001 Covid-19 Vaccine (4 - 2022-2 4 season) 2023 02/19/2022, 06/07/2020, 05/07/2020 INFLUENZA (Season Ended) 2024 020, 01/18/2019, 02/05/2018, Additional history exists CHOLESTEROL SCREENING 02/08/2026 02/08/2021 , 02/03/2020, 02/04/2019, Additional history exists Care Teams Postdoctoral Research Fellow Relationship Specialty Start Date End Date Saima Sandoval MD PCP - General Internal Medicine 10/12/22
--- OUTSIDE RECORDS SUMMARY | 2024-06-03 11:35 | XMS_ITS | Encounter Summary ---
Author Organization [facility] Address [address] [place] [address] Care Team Providers Care Oracle Wms Consultant Name Role Phone Evelyn Morales MD Primary Care Provider Unavaila ble Andry Love MD Primary Care Provider Unavailable Fabio Watts MD Primary Care Provider Manuela Parr MD Primary Care Provider [phone] Eladia Haji PA-C Primary Care Provider Unavail able Keyana Wick DO Primary Care Provider Unavaila ble Saima Sandoval MD Primary Care Provider Unavaila ble Reason for Visit * Reason Comments E-prescribe Rx Request Encounter Details Date Type Department Care Team Description 08/08/2020 Refill Medicine/Pediatrics - [address] [phone] Lenore Marinelli NP E-prescribe Rx Request Social History Tobacco Use [...] * Telephone Encounter - Parminder Flowers - 08/08/2020 3:51 PM EDT Lvm to book appt * Telephone Encounter - Jessica Guevara L.P.N. - 08/08/2020 10:25 AM EDT Needs appointment Last [facility] 12/22 06/13- sick visit * Telephone Encounter - Aby Wyatt - 08/08/2020 8:50 AM EDT Patient would like script to be: E-PRESCRIBED/FAXED TO PHARMACY WHEN WAS THE PATIENT'S LAST APPOINTMENT IN ADULT MEDICINE? 06/13/2020 WHEN WAS THE LAST TIME THE PATIENT SAW THEIR PCP? Does patient have an upcoming appointment? No-unable to reach left [facility] to call for appointment due to refill [...] N/A Patients current insurance carrier is: Payor: [place]/MED[place] P[place] / Plan: [facility] MDCR-ADV PPO $25/$45 [place] / Product Type: MEDICARE [id number] documented in this encounter Plan of Treatment Not on file documented as of this encounter Visit Diagnoses Not on filedocumented in this encounter Care Teams Oracle Wms Consultant Relationship Specialty Start Date End Date Evelyn Morales MD PCP - General Internal Medicine 06/10/20 09/11/20 Andry Love MD PCP - General Internal Medicine 09/12/2009/01 Fabio Watts MD [address] [place] [address] PCP - General Internal Medicine 09/14/21 10/31/21 Manuela Parr MD [address] [place] [address] PCP - General Internal Medicine 11/01/21 01/15/22 Eladia Haji PA-C [address] [place], [place] PCP - General Internal Medicine 01/16/22 05/30/22 Keyana Wick DO [address] [place], [place] PCP - General Internal Medicine 05/31/22 10/11/22 Saima Sandoval MD [address] [place], [place] PCP - General Internal Medicine 10/12/22 documented as of this encounter
--- OUTSIDE RECORDS SUMMARY | 2024-06-03 11:35 | XMS_ITS | Encounter Summary ---
Author Organization [facility] Address [address] [place] [address] Care Team Providers Care Sales Account Representative Name Role Phone Manuela Parr MD Primary Care Provider [phone] Eladia Haji PA-C Primary Care Provider Unavail able Keyana Wick DO Primary Care Provider Unavaila ble Saima Sandoval MD Primary Care Provider Unavaila ble Reason for Visit * Reason Onset Date Comments Blood Pressure Elevated 12/04/2021 Encounter Details Date Type Department Care Team Description 12/04/2021 Telephone Adult Medicine - [place] [address] [place] [address] Manuela Parr MD [address] [place] [address] Blood Pressure Elevated Social History Tobacco Use Types Packs/Day Years [...] encounter Miscellaneous Notes * Telephone Encounter - Herberth Lozano LPN - 12/08/2021 12:57 PM EDT Several attempts made to reach pt Left message for pt to please return our call * Telephone Encounter - Herberth Lozano LPN - 12/06/2021 8:21 AM EDT Left message for pt to please return our call * Telephone Encounter - Herberth Lozano LPN - 12/04/2021 3:47 PM EDT Left message for pt to please return our call * Telephone Encounter - Kaylyn Souza - 12/04/2021 3:26 PM EDT Symptoms patient is presenting: Pt reports her blood pressure has been running 160 to 170/70 consistently in the morning for 2-3 weeks. Patient wants to know if the provider willadjust her medications? For ALL patients calling to schedule any appointment (routine, sick visit, follow up, consult, etc.) in the outpatient setting please ask the following questions: ?? Do you have fever of higher than 101, sore throat with difficulty swallowing or severe shortnessof breath? NO If YES to any of these above symptoms, send a message to triage and do not book. Red dot. If no, an audio or video visit should be booked. ?? Have you had close contact with someone with Coronavirus in the last 14 days? NO ?? Have you traveled abroad? NO ?? Have you traveled recently to another state outside of [place], [place], [place], [place], [place], [place], [place]? NO o If yes, did you quarantine for 14 days or have a negative covid test? NO If yes to any of the above, patient is not to be scheduled in office until after 14 day quarantine or negative covid test. If pain or injury related was it due to an accident at work or from a motor vehicle accident? NO If yes, gather 3rd democrat insurance information Date of accident/Injury: How long has patient had these symptoms?: PCP: Manuela Parr Payor: [facility]/MEDICARE PPO / Plan: [facility] MDCR-ADV PPO $25/$45 [place] / Product Type: MEDICARE [id number] documented in this encounter Plan of Treatment Not on file documented as of this encounter Visit Diagnoses Not on filedocumented in this encounter Care Teams Sales Account Representative Relationship Specialty Start Date End Date Manuela Parr MD [address] [place] [address] PCP - General Internal Medicine 11/01/21 01/15/22 Eladia Haji PA-C [address] [place], [place] PCP - General Internal Medicine 01/16/22 05/30/22 Keyana Wick DO [address] [place] [address] PCP - General Internal Medicine 05/31/22 10/11/22 Saima Sandoval MD [address] [place], [place] PCP - General Internal Medicine 10/12/22 documented as of this encounter
--- OUTSIDE RECORDS SUMMARY | 2024-06-03 11:35 | XMS_ITS | Encounter Summary ---
Author Organization [facility] Address [address] [place] [address] Care Team Providers Care Make Up Editor Name Role Phone Evelyn Morales MD Primary [...] Team Description 07/15/2015 Refill Adult Medicine - [address] [address] Evelyn Morales MD Social History Tobacco Use [...] MG tablet [Evelyn Morales MD] Preferred pharmacy: [facility] - [address] Comment: documented in this encounter Plan of Treatment Not on file documented as of this encounter Visit Diagnoses Not on filedocumented in this encounter Care Teams Make Up Editor Relationship Specialty Start Date End Date Evelyn Morales MD PCP - General Internal Medicine 06/21/11 02/02/19 Saima Sandoval MD PCP - General Internal Medicine 02/03/19 06/09/20 Evelyn Morales MD PCP - General Internal Medicine 06/10/20 09/11/20 Andry Love MD PCP - General Internal Medicine 09/12/2009/01 Fabio Watts MD [address] [place] [address] PCP - General Internal Medicine 09/14/21 10/31/21 Manuela Parr MD [address] [place] [address] PCP - General Internal Medicine 11/01/21 01/15/22 Eladia Haji PA-C [address] [place] [address] PCP - General Internal Medicine 01/16/22 05/30/22 Keyana Wick DO [address] [place] [address] PCP - General Internal Medicine 05/31/22 10/11/22 Saima Sandoval MD [address] [place] [address] PCP - General Internal Medicine 10/12/22 documented as of this encounter
--- OUTSIDE RECORDS SUMMARY | 2024-06-03 11:35 | XMS_ITS | Encounter Summary ---
Author Organization [facility] Address [address] [place] [address] Care Team Providers Care Dynamics Ax Consultant Name Role Phone Evelyn Morales MD Primary Care Provider Unavaila cait Schulte, Pcp Primary Care Provider Evelyn Renee MD Primary Care Provider Unavaila Saima Reyes MD Primary Care Provider Unavaila Evelyn Norris MD Primary Care Provider Unavaila Andry Pino MD Primary Care Provider Unavailable Fabio Watts MD Primary Care Provider [phone] Manuela Parr MD Primary Care Provider Eladia Haji PA-C Primary Care Provider Unavail Keyana Navarrete DO Primary Care Provider Unavaila Saima Reyes MD Primary Care Provider Unavaila cait Encounter Details Date Type Department Care Team Description 11/20/2010 Release of Information Medical Records [address] [place] [id number] Abstract, Provider Social History Tobacco Use Types [...] on filedocumented in this encounter Care Teams Dynamics Ax Consultant Relationship Specialty Start Date End Date Evelyn Morales MD PCP - General 09/19/10 05/29/11 [facility], Pcp PCP - General Internal Medicine 05/30/11 06/20/11 Evelyn Morales MD PCP - General Internal Medicine 06/21/11 02/02/19 Saima Sandoval MD PCP - General Internal Medicine 02/03/19 06/09/20 Evelyn Morales MD PCP - General Internal Medicine 06/10/20 09/11/20 Andry Love MD PCP - General Internal Medicine 09/12/2009/01 Fabio Watts MD [address] [place] [address] PCP - General Internal Medicine 09/14/21 10/31/21 Manuela Parr MD [address] [place] [address] PCP - General Internal Medicine 11/01/21 01/15/22 Eladia Haji PA-C [address] [place], [place] PCP - General Internal Medicine 01/16/22 05/30/22 Keyana Wick DO [address] [place] [address] PCP - General Internal Medicine 05/31/22 10/11/22 Saima Sandoval MD [address] [place], [place] PCP - General Internal Medicine 10/12/22 documented as of this encounter
--- OUTSIDE RECORDS SUMMARY | 2024-06-03 11:35 | XMS_ITS | Encounter Summary ---
Author Organization [facility] Address [facility] [place] [address] Care Team Providers Care Deep Fat Cook Fry Name Role Phone Manuela Parr MD Primary Care Provider + [phone] Eladia Haji PA-C Primary Care Provider Unavail able Keyana Wick DO Primary Care Provider Unavaila ble Saima Sandoval MD Primary Care Provider Unavaila ble Reason for Visit * Reason Onset Date Comments EKG 12/20/2021 Encounter Details Date Type Department Care Team Description 12/20/2021 Telephone Cardio PVCA Diag Testing [address] [facility] [address] [place] [address] Yadira Buchanan PA-C [address] [place] [address] EKG Social History Tobacco Use Types Packs/Day [...] on filedocumented in this encounter Care Teams Deep Fat Cook Fry Relationship Specialty Start Date End Date Manuela Parr MD [address] [place] [address] PCP - General Internal Medicine 11/01/21 01/15/22 Eladia Haji PA-C [address] [place] [address] PCP - General Internal Medicine 01/16/22 05/30/22 Keyana Wick DO [address] [place] [address] PCP - General Internal Medicine 05/31/22 10/11/22 Saima Sandoval MD [address] [place] [address] PCP - General Internal Medicine 10/12/22 documented as of this encounter
--- OUTSIDE RECORDS SUMMARY | 2024-06-03 11:35 | XMS_ITS | Encounter Summary ---
Author Organization [facility] Address [address] [place] [address] Care Team Providers Care Independent Living Advisor Name Role Phone Andry Love MD Primary Care Provider Unavailable Fabio Watts MD Primary Care Provider Manuela Parr MD Primary Care Provider [phone] Eladia Haji PA-C Primary Care Provider Unavail able Keyana Wick DO Primary Care Provider Unavaila ble Saima Sandoval MD Primary Care Provider Unavaila ble Reason for Visit * Reason Comments E-prescribe Rx Request Encounter Details Date Type Department Care Team Description 11/06/2020 Refill Medicine/Pediatrics - [address] [phone] Evelyn Morales MD E-prescribe Rx Request Social [...] Patients current insurance carrier is: Payor: [facility]/MEDICARE PPO / Plan: [facility] MDCR-ADV PPO $25/$45 [place] / Product Type: MEDICARE [id number] documented in this encounter Plan of Treatment Not on file documented as of this encounter Visit Diagnoses Not on filedocumented in this encounter Care Teams Independent Living Advisor Relationship Specialty Start Date End Date Andry Love MD PCP - General Internal Medicine 09/12/2009/01 Fabio Watts MD [address] [place] [address] PCP - General Internal Medicine 09/14/21 10/31/21 Manuela Parr MD [address] [place] [address] PCP - General Internal Medicine 11/01/21 01/15/22 Eladia Haji PA-C [address] [place] [address] PCP - General Internal Medicine 01/16/22 05/30/22 Keyana Wick DO [address] [place] [address] PCP - General Internal Medicine 05/31/22 10/11/22 Saima Sandoval MD [address] [place] [address] PCP - General Internal Medicine 10/12/22 documented as of this encounter
--- OUTSIDE RECORDS SUMMARY | 2024-06-03 11:36 | XMS_ITS | Encounter Summary ---
Author Organization [facility] Address [address] [place] [address] Care Team Providers Care Aquatic Facility Manager Name Role Phone Evelyn Morales MD Primary Care Provider Unavaila Saima Reyes MD Primary Care Provider Unavaila Eveyln Norris MD Primary Care Provider Unavaila Andry Pino MD Primary Care Provider Unavailable Fabio Watts MD Primary Care Provider Manuela Parr MD Primary Care Provider [phone] Eladia Haji PA-C Primary Care Provider Unavail able Keyana Wick DO Primary Care Provider Unavaila Saima Reyes MD Primary Care Provider Unavaila ble Encounter Details Date Type Department Care Team Description 07/11/2017 Orders Only Adult Medicine - [address] [address] Evelyn Morales MD Preoperative examination; Screening for deficiency anemia Social History Tobacco Use Types Packs/Day Years [...] as of this encounter Plan of Treatment Scheduled Orders Name Type Priority Associated Diagnoses Orde r Schedule CBC (AUTO DIFF PLATELET) Lab Routine Preoperative examination Screening for deficiency anemia Expected: 07/11/2017 (Approximate), Expires: 07/11/2018 documented as of this encounter Visit Diagnoses Diagnosis Preoperative examination Preoperative examination, unspecified Screening for deficiency anemia Screening for other and unspecified deficiency anemia documented in this encounter Care Teams Aquatic Facility Manager Relationship Specialty Start Date End Date Evelyn Morales MD PCP - General Internal Medicine 06/21/11 02/02/19 Saima Sandoval MD PCP - General Internal Medicine 02/03/19 06/09/20 Evelyn Morales MD PCP - General Internal Medicine 06/10/20 09/11/20 Andry Love MD PCP - General Internal Medicine 09/12/2009/01 Fabio Watts MD [address] [place] [address] PCP - General Internal Medicine 09/14/21 10/31/21 Manuela Parr MD [address] [place] [address] PCP - General Internal Medicine 11/01/21 01/15/22 Eladia Haji PA-C [address] [place], [place] PCP - General Internal Medicine 01/16/22 05/30/22 Keyana Wick DO [address] [place] [address] PCP - General Internal Medicine 05/31/22 10/11/22 Saima Sandoval MD [address] [place] [address] PCP - General Internal Medicine 10/12/22 documented as of this encounter
--- OUTSIDE RECORDS SUMMARY | 2024-06-03 11:36 | XMS_ITS | Encounter Summary ---
Author Organization [facility] Address [address] [place] [address] Care Team Providers Care Hotel Dining Room Cashier Name Role Phone Saima Sandoval MD Primary Care Provider Unavaila ble Reason for Visit * Reason Comments E-prescribe Rx Request Encounter Details Date Type Department Care Team Description 04/17/2024 Refill Cardio PVCA Diag Testing [address] [address] Eladia Haji PA-C E-prescribe Rx Request Social [...] on filedocumented in this encounter Care Teams Hotel Dining Room Cashier Relationship Specialty Start Date End Date Saima Sandoval MD PCP - General Internal Medicine 10/12/22 documented as of this encounter
--- OUTSIDE RECORDS SUMMARY | 2024-06-03 11:36 | XMS_ITS | Encounter Summary ---
Author Organization [facility] Address [address] [place] [address] Care Team Providers Care Compressed Gas Tester Name Role Phone Evelyn Morales MD Primary [...] Details Date Type Department Care Team Description 02/23/2016 Pt. Non Urgent Medical Question Adult Medicine - [address] [address] Evelyn Morales MD Social History Tobacco Use [...] on file documented as of this encounter Progress Notes * Chantelle Chavez L.P.N. - 02/23/2016 4:58 PM ESTFrom: Alem Posada To: Evelyn Morales MD Sent: 02/23/2016 4:52 PM EST Subject: Update I had a mammogram in 2015 results : normal Colonoscopy was done 2014. results : normal, no polyps seen. I ask for results to be sent to your office, it doesn't always happen. Thank You , Alem Albino documented in this encounter Plan of Treatment Not on file documented as of this encounter Visit Diagnoses Not on filedocumented in this encounter Care Teams Compressed Gas Tester Relationship Specialty Start Date End Date Evelyn Morales MD PCP - General Internal Medicine 06/21/11 02/02/19 Saima Sandoval MD PCP - General Internal Medicine 02/03/19 06/09/20 Evelyn Morales MD PCP - General Internal Medicine 06/10/20 09/11/20 Andry Love MD PCP - General Internal Medicine 09/12/2009/01 Fabio Watts MD [address] [place] [address] PCP - General Internal Medicine 09/14/21 10/31/21 Manuela Parr MD [address] [place] [address] PCP - General Internal Medicine 11/01/21 01/15/22 Eladia Haji PA-C [address] [place] [address] PCP - General Internal Medicine 01/16/22 05/30/22 Keyana Wick DO [address] [place] [address] PCP - General Internal Medicine 05/31/22 10/11/22 Saima Sandoval MD [address] [place] [address] PCP - General Internal Medicine 10/12/22 documented as of this encounter
--- OUTSIDE RECORDS SUMMARY | 2024-06-03 11:36 | XMS_ITS | Encounter Summary ---
Author Organization [facility] Address [address] [place] [address] Care Team Providers Care Residential Property Tax Appraiser Name Role Phone Evelyn Morales MD Primary Care Provider Unavaila Saima Reyes MD Primary Care Provider Unavaila Evelyn Norris MD Primary Care Provider Unavaila ble Andry Love MD Primary Care Provider Unavailable Fabio Watts MD Primary Care Provider Manuela Parr MD Primary Care Provider [phone] Eladia Haji PA-C Primary Care Provider Unavail able Keyana Wick DO Primary Care Provider Unavaila Saima Reyes MD Primary Care Provider Unavaila ble Reason for Visit * Reason Comments E-prescribe Rx Request Encounter Details Date Type Department Care Team Description 04/09/2016 Refill Adult Medicine - [address] [place] [address] Evelyn Morales MD E-prescribe Rx Request Social [...] make appt * Telephone Encounter - Evelyn Morales MD - 04/10/2016 12:15 PM EST Needs [...] an upcoming appointment? No-unable to reach left [facility] to call for appointment due to refill request. Appt due 06/2016 (THE MEDICATION REQUESTED IS ON THE MED LIST ABOVE) All of the medications requested were on the CURRENT MEDS list Did you check the Pharmacy information above?: YES Patient wants: 90 -day supply Is this a mail order prescription request ? YES Patients current insurance carrier is: Payor: [facility] / Plan: [facility] MEDICARE COMPLETE $15/$45 [facility] [place] [address] / Product Type: PPO [id number] * Telephone Encounter - Eli Noemikimberly - 04/10/2016 9:11 AM EST Patient would like script to be: E-PRESCRIBED/FAXED TO PHARMACY WHEN WAS THE PATIENT'S LAST APPOINTMENT IN ADULT MEDICINE? 12/13/2015 WHEN WAS THE LAST TIME THE PATIENT SAW THEIR PCP? 09/22/2015 Does patient have an upcoming appointment? [facility] due to refill request. Appt due overdue for follow-up. (THE MEDICATION REQUESTED IS ON THE MED LIST ABOVE) All of the medications requested were on the CURRENT MEDS list Did you check the Pharmacy information above?: YES Patient wants: 90 -day supply Is this a mail order prescription request ? YES Patients current insurance carrier is: Payor: [facility] / Plan: [employer] MEDICARE COMPLETE $15/$45 [facility] [place] [address] / Product Type: PPO [id number] documented in this encounter Plan of Treatment Not on file documented as of this encounter Visit Diagnoses Not on filedocumented in this encounter Care Teams Residential Property Tax Appraiser Relationship Specialty Start Date End Date Evelyn Morales MD PCP - General Internal Medicine 06/21/11 02/02/19 Saima Sandoval MD PCP - General Internal Medicine 02/03/19 06/09/20 Evelyn Morales MD PCP - General Internal Medicine 06/10/20 09/11/20 Andry Love MD PCP - General Internal Medicine 09/12/2009/01 Fabio Watts MD [address] [place] [address] PCP - General Internal Medicine 09/14/21 10/31/21 Manuela Parr MD [address] [place] [address] PCP - General Internal Medicine 11/01/21 01/15/22 Eladia Haji PA-C [address] [place] [address] PCP - General Internal Medicine 01/16/22 05/30/22 Keyana Wick DO [address] [place] [address] PCP - General Internal Medicine 05/31/22 10/11/22 Saima Sandoval MD [address] [place] [address] PCP - General Internal Medicine 10/12/22 documented as of this encounter
--- OUTSIDE RECORDS SUMMARY | 2024-06-03 11:36 | XMS_ITS | Encounter Summary ---
Author Organization [facility] Address [address] [place] [address] Care Team Providers Care Trolley Coach Driver Name Role Phone Evelyn Morales MD Primary Care Provider Unavaila cait Schulte, Pcp Primary Care Provider UnavailEvelyn Handley MD Primary Care Provider Unavaila Saima Reyes MD Primary Care Provider Unavaila Evelyn Norris MD Primary Care Provider Unavaila Andry Pino MD Primary Care Provider Unavailable Fabio Watts MD Primary Care Provider Manuela Parr MD Primary Care Provider [phone] Eladia Haji PA-C Primary Care Provider Unavail able Keyana Wick DO Primary Care Provider Unavaila Saima Reyes MD Primary Care Provider Unavaila cait Encounter Details Date Type Department Care Team Description 09/11/2010 Civil Cadd Technician Report Medical Records [address] [place] [address] Jay Black Social History Tobacco Use Types Packs/Day Years Used Date Smoking Tobacco: Never Assessed Sex Assigned at Date Recorded Not on file Job Start Date Occupation Industry Not on file Not on file Not on file documented as of this encounter Plan of Treatment Not on file documented as of this encounter Visit Diagnoses Not on filedocumented in this encounter Care Teams Trolley Coach Driver Relationship Specialty Start Date End Date Evelyn Morales MD PCP - General 09/19/10 05/29/11 Community, Pcp PCP - General Internal Medicine 05/30/11 06/20/11 Evelyn Morales MD PCP - General Internal Medicine 06/21/11 02/02/19 Saima Sandoval MD PCP - General Internal Medicine 02/03/19 06/09/20 Evelyn Morales MD PCP - General Internal Medicine 06/10/20 09/11/20 Andry Love MD PCP - General Internal Medicine 09/12/2009/01 Fabio Watts MD [address] [place] [address] PCP - General Internal Medicine 09/14/21 10/31/21 Manuela Parr MD [address] [place] [address] PCP - General Internal Medicine 11/01/21 01/15/22 Eladia Haji PA-C [address] [place] PCP - General Internal Medicine 01/16/22 05/30/22 Keyana Wick DO [address] [place] PCP - General Internal Medicine 05/31/22 10/11/22 Saima Sandoval MD [address] [place], [place] PCP - General Internal Medicine 10/12/22 documented as of this encounter
--- OUTSIDE RECORDS SUMMARY | 2024-06-03 11:36 | XMS_ITS | Encounter Summary ---
Author Organization [facility] Address [address] [place] [address] Care Team Providers Care Warrant Server Name Role Phone Saima Sandoval MD Primary Care Provider Unavaila ble Reason for Visit * Reason Comments E-prescribe Rx Request Encounter Details Date Type Department Care Team Description 03/19/2024 Refill Cardio PVCA Diag Testing [address] [address] Eladia Haji PA-C E-prescribe Rx Request Social [...] on filedocumented in this encounter Care Teams Warrant Server Relationship Specialty Start Date End Date Saima Sandoval MD PCP - General Internal Medicine 10/12/22 documented as of this encounter
--- OUTSIDE RECORDS SUMMARY | 2024-06-03 11:36 | XMS_ITS | Encounter Summary ---
Author Organization [facility] Address [address] [place] [address] Care Team Providers Care Inspector Handbag Frames Name Role Phone Saima Sandoval MD Primary Care Provider Unavaila Evelyn Norris MD Primary Care Provider Unavaila Andry Pino MD Primary Care Provider Unavailable Fabio Watts MD Primary Care Provider Manuela Parr MD Primary Care Provider [phone] Eladia Haji PA-C Primary Care Provider Unavail able Keyana Wick DO Primary Care Provider Unavaila Saima Reyes MD Primary Care Provider Unavailkandis chavira Encounter Details Date Type Department Care Team Description 10/22/2019 Orders Only Medicine/Pediatrics - [address] [id number] Saima Sandoval MD Social History Tobacco Use [...] on filedocumented in this encounter Care Teams Inspector Handbag Frames Relationship Specialty Start Date End Date Saima Sandoval MD PCP - General Internal Medicine 02/03/19 06/09/20 Evelyn Morales MD PCP - General Internal Medicine 06/10/20 09/11/20 Andry Love MD PCP - General Internal Medicine 09/12/2009/01 Fabio Watts MD [address] [place] [address] PCP - General Internal Medicine 09/14/21 10/31/21 Manuela Parr MD [address] [place] [address] PCP - General Internal Medicine 11/01/21 01/15/22 Eladia Haji PA-C [address] [place] [address] PCP - General Internal Medicine 01/16/22 05/30/22 Keyana Wick DO [address] [place], [place] PCP - General Internal Medicine 05/31/22 10/11/22 Saima Sandoval MD [address] [place] [address] PCP - General Internal Medicine 10/12/22 documented as of this encounter
--- OUTSIDE RECORDS SUMMARY | 2024-06-03 11:36 | XMS_ITS | Encounter Summary ---
Author Organization [facility] Address [address] [place] [address] Care Team Providers Care Lead Maintenance Technician Name Role Phone Evelyn Morales MD Primary Care Provider UnavailSaima Ospina MD Primary Care Provider Unavaila Evelyn Norris MD Primary Care Provider Unavaila Andry Pino MD Primary Care Provider Unavailable Fabio Watts MD Primary Care Provider [phone] Manuela Parr MD Primary Care Provider [phone] Eladia Haji PA-C Primary Care Provider Unavail able Keyana Wick DO Primary Care Provider Unavaila Saima Reyes MD Primary Care Provider Unavaila cait Encounter Details Date Type Department Care Team Description 01/29/2018 Transfer Records Medical Records [address] [place] [address] Abstract, Provider Social History Tobacco Use Types [...] on filedocumented in this encounter Care Teams Lead Maintenance Technician Relationship Specialty Start Date End Date Evelyn Morales MD PCP - General Internal Medicine 06/21/11 02/02/19 Saima Sandoval MD PCP - General Internal Medicine 02/03/19 06/09/20 Evelyn Morales MD PCP - General Internal Medicine 06/10/20 09/11/20 Andry Love MD PCP - General Internal Medicine 09/12/2009/01 Fabio Watts MD [address] [place] [address] PCP - General Internal Medicine 09/14/21 10/31/21 Manuela Parr MD [address] [place], [place] PCP - General Internal Medicine 11/01/21 01/15/22 Eladia Haji PA-C [address] [place], [place] PCP - General Internal Medicine 01/16/22 05/30/22 Keyana Wick DO [address] [place], [place] PCP - General Internal Medicine 05/31/22 10/11/22 Saima Sandoval MD [address] [place], [place] PCP - General Internal Medicine 10/12/22 documented as of this encounter
--- OUTSIDE RECORDS SUMMARY | 2024-06-03 11:36 | XMS_ITS | Encounter Summary ---
Author Organization [facility] Address [address] [place] [address] Care Team Providers Care Transfer And Pumphouse Operator Name Role Phone Evelyn Morales MD Primary Care Provider UnavailSaima Ospina MD Primary Care Provider Unavaila Evelyn Norris MD Primary Care Provider Unavaila Andry Pino MD Primary Care Provider Unavailable Fabio Watts MD Primary Care Provider Manuela Parr MD Primary Care Provider [phone] Eladia Haji PA-C Primary Care Provider Unavail able Keyana Wick DO Primary Care Provider Unavaila Saima Reyes MD Primary Care Provider Unavaila cait Encounter Details Date Type Department Care Team Description 12/21/2015 Release of Information Medical Records [address] [place] [address] Abstract, Provider Social History Tobacco Use Types [...] on filedocumented in this encounter Care Teams Transfer And Pumphouse Operator Relationship Specialty Start Date End Date Evelyn Morales MD PCP - General Internal Medicine 06/21/11 02/02/19 Saima Sandoval MD PCP - General Internal Medicine 02/03/19 06/09/20 Evelyn Morales MD PCP - General Internal Medicine 06/10/20 09/11/20 Andry Love MD PCP - General Internal Medicine 09/12/2009/01 Fabio Watts MD [address] [place] [address] PCP - General Internal Medicine 09/14/21 10/31/21 Manuela Parr MD [address] [place], [place] PCP - General Internal Medicine 11/01/21 01/15/22 Eladia Haji PA-C [address] [place], [place] PCP - General Internal Medicine 01/16/22 05/30/22 Keyana Wick DO [address] [place], [place] PCP - General Internal Medicine 05/31/22 10/11/22 Saima Sandoval MD [address] [place], [place] PCP - General Internal Medicine 10/12/22 documented as of this encounter
--- OUTSIDE RECORDS SUMMARY | 2024-06-03 11:36 | XMS_ITS | Encounter Summary ---
Author Organization [facility] Address [address] [place] [address] Care Team Providers Care Supervisor Winding Department Name Role Phone Evelyn Morales MD [...] TO EXTERNAL OPHTHALMOLOGY Evelyn Morales MD [address] [place] [address] Jono Storm MD [address] [address] Referral ID Status Reason Start Date Expiration Date V isits Requested Visits Authorized SEE NOTE Authorized/B ooked 12/10/2017 03/13/2018 1 1 Reason for Visit * Reason Onset Date Comments Copper Etcher Feedback 12/10/2017 Encounter Details Date Type Department Care Team Description 12/10/2017 Telephone Adult Medicine - [place] [address] [place] [address] Evelyn Morales MD Copper Etcher Feedback () Social History Tobacco Use Types [...] The referral has been pended. Please complete the following: If approved> sign order If denied>please give instructions and route to your practice nursing pool. Practice nurse should inform referrals and the patient if denied. * Telephone Encounter - Courtney Bridges - 12/10/2017 11:15 AM EDT What insurance does the patient have today? Payor: [facility] / Plan: [facility] MEDICARE COMPLETE$15/$45 [facility] [id number] / Product Type: PPO [id number] Effective 12/02/08: BCBS will not retro referral [...] insurance must be obtained and registered in [facility] or their referral can not be processed. [...] LAST NAME of SPECIALIST PATIENT is seeing: [facility] - Dr Storm What specialty [...] this visit:Initial Visit Address of Specialist: [address] [facility], [address] - [place], [place] Phone # of Specialist: [phone] Fax #: (if applicable): Does patient have an appointment scheduled?: YES Date of appointment- (including a retro-request): 12/12/2017 - 4 visits Is this appointment related to: Not MVA, WC or Surgery related documented in this encounter Plan of Treatment Not on file documented as of this encounter Visit Diagnoses Not on filedocumented in this encounter Care Teams Supervisor Winding Department Relationship Specialty Start Date End Date Evelyn Morales MD PCP - General Internal Medicine 06/21/11 02/02/19 Saima Sandoval MD PCP - General Internal Medicine 02/03/19 06/09/20 Evelyn Morales MD PCP - General Internal Medicine 06/10/20 09/11/20 Andry Love MD PCP - General Internal Medicine 09/12/2009/01 Fabio Watts MD [address] [place], [place] PCP - General Internal Medicine 09/14/21 10/31/21 Manuela Parr MD [address] [place], [place] PCP - General Internal Medicine 11/01/21 01/15/22 Eladia Haji PA-C [address] [place], [place] PCP - General Internal Medicine 01/16/22 05/30/22 Keyana Wick DO [address] [place], [place] PCP - General Internal Medicine 05/31/22 10/11/22 Saima Sandoval MD [address] [place], [place] PCP - General Internal Medicine 10/12/22 documented as of this encounter
--- OUTSIDE RECORDS SUMMARY | 2024-06-03 11:36 | XMS_ITS | Encounter Summary ---
Author Organization [facility] Address [address] [place] [address] Care Team Providers Care Retail Event And Sales Assistant Name Role Phone Saima Sandoval MD Primary Care Provider Unavaila ble Evelyn Morales MD Primary Care Provider Unavaila ble Andry Love MD Primary Care Provider Unavailable Fabio Watts MD Primary Care Provider Manuela Parr MD Primary Care Provider [phone] Eladia Haji PA-C Primary Care Provider Unavail able Keyana Wick DO Primary Care Provider Unavaila Saima Reyes MD Primary Care Provider Unavaila ble Reason for Visit * Reason Onset Date Comments Prior Authorization 07/29/2019 Encounter Details Date Type Department Care Team Description 07/29/2019 Telephone Medicine/Pediatrics - [address] [phone] Samia Sandoval MD Prior Authorization Social History Tobacco [...] [place]ally [place] [id number] Prior Auth crescencio Lyle M.A. [facility] Prior Authorizations Ext [phone] Fax: [phone] [place] [phone] Prior Auth pool Pt state she take generic see below * Telephone Encounter - Courtney Bridges - 07/31/2019 8:49 AM EDT Pt states she takes the generic not the name brand escitalopram * Telephone Encounter - oCurtney Bridges - 07/31/2019 8:47 AM EDT If you need to call [phone] * Telephone Encounter - Angela Zhang - [...] EDT Prior auth done by form to [facility] for lexapro Continuation of therapy Dx anxiety [...] Is this a Cover My Meds request: [place] of Medication Lexapro Dose of Medication 10 mg What is the RX # from the faxed refill? How does patient take this med? Take 1 tab daily What Pharmacy did the fax come from: Call from [facility] fax #: [facility] Information from fax: What Prescription Plan does the patient have? [facility] BIN/PCN if applicable: Cardholder ID:[id number] Person Code: Relationship Code: Help desk phone: [phone] documented in this encounter Plan of Treatment Not on file documented as of this encounter Visit Diagnoses Not on filedocumented in this encounter Care Teams Retail Event And Sales Assistant Relationship Specialty Start Date End Date Saima Sandoval MD PCP - General Internal Medicine 02/03/19 06/09/20 Evelyn Morales MD PCP - General Internal Medicine 06/10/20 09/11/20 Andry Love MD PCP - General Internal Medicine 09/12/2009/01 Fabio Watts MD [address] [place] [address] PCP - General Internal Medicine 09/14/21 10/31/21 Manuela Parr MD [address] [place] [address] PCP - General Internal Medicine 11/01/21 01/15/22 Eladia Haji PA-C [address] [place] [address] PCP - General Internal Medicine 01/16/22 05/30/22 Keyana Wick DO [address] [place] [address] PCP - General Internal Medicine 05/31/22 10/11/22 Saima Sandoval MD [address] [place] [address] PCP - General Internal Medicine 10/12/22 documented as of this encounter
--- OUTSIDE RECORDS SUMMARY | 2024-06-03 11:36 | XMS_ITS | Encounter Summary ---
Author Organization [facility] Address [address] [place] [address] Care Team Providers Care Chemical Sales Representative Name Role Phone Evelyn Morales MD Primary Care Provider Unavaila Saima Reyes MD Primary Care Provider Unavaila Evelyn Norris MD Primary Care Provider Unavaila Andry Pino MD Primary Care Provider Unavailable Fabio Watts MD Primary Care Provider [phone] Manuela Parr MD Primary Care Provider Eladia Haji PA-C Primary Care Provider Unavail able Keyana Wick DO Primary Care Provider Unavaila Saima Reyes MD Primary Care Provider Unavaila cait Encounter Details Date Type Department Care Team Description 04/04/2018 Refill Adult Medicine [address] [address] Evelyn Morales MD Social History Tobacco Use [...] on filedocumented in this encounter Care Teams Chemical Sales Representative Relationship Specialty Start Date End Date Evelyn Morales MD PCP - General Internal Medicine 06/21/11 02/02/19 Saima Sandoval MD PCP - General Internal Medicine 02/03/19 06/09/20 Evelyn Morales MD PCP - General Internal Medicine 06/10/20 09/11/20 Andry Love MD PCP - General Internal Medicine 09/12/2009/01 Fabio Watts MD [address] [place] [address] PCP - General Internal Medicine 09/14/21 10/31/21 Manuela Parr MD [address] [place] [address] PCP - General Internal Medicine 11/01/21 01/15/22 Eladia Haji PA-C [address] [place], [place] PCP - General Internal Medicine 01/16/22 05/30/22 Keyana Wick DO [address] [place], [place] PCP - General Internal Medicine 05/31/22 10/11/22 Saima Sandoval MD [address] [place], [place] PCP - General Internal Medicine 10/12/22 documented as of this encounter
--- OUTSIDE RECORDS SUMMARY | 2024-06-03 11:36 | XMS_ITS | Encounter Summary ---
Author Organization [facility] Address [address] [place] [address] Care Team Providers Care Spool Salvager Name Role Phone Evelyn Morales MD Primary [...] Details Date Type Department Care Team Description 08/14/2018 Diesel Locomotive Crane Operator Report Medical Records [address] [place] [address] Rehab., [facility] Social History Tobacco Use Types Packs/Day Years [...] on filedocumented in this encounter Care Teams Spool Salvager Relationship Specialty Start Date End Date Evelyn Morales MD PCP - General Internal Medicine 06/21/11 02/02/19 Saima Sandoval MD PCP - General Internal Medicine 02/03/19 06/09/20 Evelyn Morales MD PCP - General Internal Medicine 06/10/20 09/11/20 Andry Love MD PCP - General Internal Medicine 09/12/2009/01 Fabio Watts MD [address] [place] [address] PCP - General Internal Medicine 09/14/21 10/31/21 Manuela Parr MD [address] [place] [address] PCP - General Internal Medicine 11/01/21 01/15/22 Eladia Haji PA-C [address] [place], [place] PCP - General Internal Medicine 01/16/22 05/30/22 Keyana Wick DO [address] [place] [address] PCP - General Internal Medicine 05/31/22 10/11/22 Saima Sandoval MD [address] [place], [place] PCP - General Internal Medicine 10/12/22 documented as of this encounter
--- OUTSIDE RECORDS SUMMARY | 2024-06-03 11:36 | XMS_ITS | Encounter Summary ---
Author Organization [facility] Address [address] [place] [address] Care Team Providers Care Butter Liquefier Name Role Phone Evelyn Morales MD Primary [...] Care Team Description 04/04/2018 Refill Adult Medicine - [address] [address] Evelyn Morales MD Social History Tobacco Use [...] encounter Miscellaneous Notes * Telephone Encounter - Lillian Recinos NP - 04/07/2018 12:39 PM EST Please make sure she schedules appointment upon her return * Telephone Encounter - Lala Reyes M.A. - 04/07/2018 8:27 AM EST Please review pt's [employer] message. In [place] until 06/17/18 * Telephone Encounter - Evelyn Morales MD - 04/04/2018 3:50 PM EST Please schedule f/u and advise which pharmacy * Telephone Encounter - Chantelle Chavez L.P.N. - 04/04/2018 1:47 PM EST Last seen 07/04/17 Lab Results Component Value Date CHOL 263 01/08/2017 LDL 148 01/08/2017 HDL 51 01/08/2017 TRIG 324 01/08/2017 SGOT 33 07/15/2014 SGPT 35 07/15/2014 * Telephone Encounter - Chantelle Chavez L.P.N. - 04/04/2018 1:47 PM ESTFrom: Alem Posada To: Evelyn Morales MD Sent: 04/04/2018 1:20 PM EST Subject: Medication Renewal Request Original authorizing provider: MD Alem Amador would like a refill of the following medications: pravastatin (PRAVACHOL) 40 MG tablet [Evelyn Morales MD] Preferred pharmacy: Other - [facility] Comment: documented in this encounter Plan of Treatment Not on file documented as of this encounter Visit Diagnoses Not on filedocumented in this encounter Care Teams Butter Liquefier Relationship Specialty Start Date End Date Evelyn Morales MD PCP - General Internal Medicine 06/21/11 02/02/19 Saima Sandoval MD PCP - General Internal Medicine 02/03/19 06/09/20 Evelyn Morales MD PCP - General Internal Medicine 06/10/20 09/11/20 Andry Love MD PCP - General Internal Medicine 09/12/2009/01 Fabio Watts MD [address] [place] [address] PCP - General Internal Medicine 09/14/21 10/31/21 Manuela Parr MD [address] [place] [address] PCP - General Internal Medicine 11/01/21 01/15/22 Eladia Haji PA-C [address] [place], [place] PCP - General Internal Medicine 01/16/22 05/30/22 Keyana Wick DO [address] [place] PCP - General Internal Medicine 05/31/22 10/11/22 Saima Sandoval MD [address] [place], [place] PCP - General Internal Medicine 10/12/22 documented as of this encounter
--- OUTSIDE RECORDS SUMMARY | 2024-06-03 11:36 | XMS_ITS | Encounter Summary ---
Author Organization [facility] Address [address] [place] [address] Care Team Providers Care Lease Out Man Name Role Phone Saima Sandoval MD Primary Care Provider Unavaila Evelyn oNrris MD Primary Care Provider Unavaila Andry Pino MD Primary Care Provider Unavailable Fabio Watts MD Primary Care Provider Manuela Parr MD Primary Care Provider Eladia Haji PA-C Primary Care Provider Unavail able Keyana Wick DO Primary Care Provider Unavaila Saima Reyes MD Primary Care Provider Unavailkandis chavira Encounter Details Date Type Department Care Team Description 05/25/2019 Refill Medicine/Pediatrics - [address] [id number] Saima Sandoval MD Social History Tobacco Use [...] on filedocumented in this encounter Care Teams Lease Out Man Relationship Specialty Start Date End Date Saima Sandoval MD PCP - General Internal Medicine 02/03/19 06/09/20 Evelyn Morales MD PCP - General Internal Medicine 06/10/20 09/11/20 Andry Love MD PCP - General Internal Medicine 09/12/2009/01 Fabio Watts MD [address] [place] [address] PCP - General Internal Medicine 09/14/21 10/31/21 Manuela Parr MD [address] [place] [address] PCP - General Internal Medicine 11/01/21 01/15/22 Eladia Haji PA-C [address] [place] [address] PCP - General Internal Medicine 01/16/22 05/30/22 Keyana Wick DO [address] [place], [place] PCP - General Internal Medicine 05/31/22 10/11/22 Saima Sandoval MD [address] [place] [address] PCP - General Internal Medicine 10/12/22 documented as of this encounter
--- OUTSIDE RECORDS SUMMARY | 2024-06-03 11:36 | XMS_ITS | Encounter Summary ---
Author Organization [facility] Address [address] [place] [address] Care Team Providers Care Computer Network And Systems Engineer Name Role Phone Evelyn Morales MD [...] Care Team Description 06/10/2020 Telephone Gastroenterology - [place] [address] [facility] [address] [place] [id number] Jorje Issa MD [address] [facility] [address] [place] [address] Special Procedure Social History Tobacco Use Types [...] on filedocumented in this encounter Care Teams Computer Network And Systems Engineer Relationship Specialty Start Date End Date Evelyn Morales MD PCP - General Internal Medicine 06/10/20 09/11/20 Andry Love MD PCP - General Internal Medicine 09/12/2009/01 Fabio Watts MD [address] [place] [address] PCP - General Internal Medicine 09/14/21 10/31/21 Manuela Parr MD [address] [place] [address] PCP - General Internal Medicine 11/01/21 01/15/22 Eladia Haji PA-C [address] [place] PCP - General Internal Medicine 01/16/22 05/30/22 Keyana Wick DO [address] [place] PCP - General Internal Medicine 05/31/22 10/11/22 Saima Sandoval MD [address] [place] PCP - General Internal Medicine 10/12/22 documented as of this encounter
== END 2024-06-03 10:41 | disposition home or self-care (01) ==
LOC: HO.HMCFM 10:03
PROVIDERS: PCP Physician Assistant; Visit Provider Physician Assistant
DX: E78.2 Mixed hyperlipidemia (principal); I10 Essential (primary) hypertension; F41.8 Other specified anxiety disorders; R06.09 Other forms of dyspnea; R07.9 Chest pain, unspecified

== ENCOUNTER → 2024-06-03 10:02 | Outpatient (BNVA) | payer BC, SELFPAY | PROVIDERS: PCP Physician Assistant; Visit Provider Physician Assistant | DX: E78.2 Mixed hyperlipidemia (principal); I10 Essential (primary) hypertension; F41.8 Other specified anxiety disorders; R06.09 Other forms of dyspnea; R07.9 Chest pain, unspecified; Z79.899 Other long term (current) drug therapy | CPT/HCPCS: 93005 ==

== ENCOUNTER 2024-06-03 10:56 | Outpatient (REF) | payer BC, SELFPAY ==
[2024-06-03 14:12] LABS: MANUAL DIFF FLAG NO
[2024-06-03 14:21] LABS: Basophils Percent Auto 0.6 % (0-2); Eosinophils Absolute Auto 0.1 X10*3/uL (0.0-0.4); Eosinophils Percent Auto 1.5 % (0-4); Hemoglobin 11.9 g/dl (12.0-16.0); Imm Gran Abs Auto 0.03 X10*3/uL (0.00-0.03); Imm Gran Pct Auto 0.4 % (0.0-0.4); Lymphocytes Absolute Auto 1.4 X10*3/uL (1.2-4.9); Lymphocytes Percent Auto 19.8 % (20-40); Mean Corpuscular HGB Conc 33.1 g/dl (31.0-35.0); Mean Corpuscular Hemoglobin 30.6 pg (27.0-33.0); Mean Corpuscular Volume 92.5 fL (80.0-98.0); Mean Platelet Volume 10.4 fL (9.4-12.3); Monocytes Absolute Auto 0.6 X10*3/uL (0.1-1.2); Monocytes Percent Auto 7.7 % (2-11); Platelet Count 252 X10*3/uL (160-400); Red Blood Count 3.89 X10*6/uL (4.20-5.50); Red Cell Distribution Width 13.2 % (11.0-16.0); White Blood Count 7.2 X10*3/uL (4.8-10.8)
[2024-06-03 14:46] LABS: Alanine Aminotransferase 22 U/L (0-31); Albumin Level 4.3 g/dL (3.5-5.0); Alkaline Phosphatase 56 U/L (39-117); Anion Gap 10 (12-20); Aspartate Amino Transferase 29 U/L (5-31); Bilirubin Total 0.8 mg/dL (0.0-1.0); Blood Urea Nitrogen 20 mg/dL (9-16); Calcium 9.4 mg/dL (8.4-10.2); Carbon Dioxide 25 mmol/L (22-29); Chloride 108 mmol/L (96-108); Cholesterol 163 mg/dL (<200); Estimated Glomerular Filt Rate 54; Glucose Fasting 101 mg/dL (60-99); HDL Cholesterol 57 mg/dL (>40); LDL Cholesterol Calculated 80 mg/dL (<100); Potassium 4.6 mmol/L (3.3-5.1); Sodium 138 mmol/L (135-145); Total Protein 7.3 g/dL (6.5-8.0); Triglycerides 131 mg/dL (<150)
[2024-06-03 15:03] LABS: TSH reflex Free T4 2.33 uIU/mL (0.32-4.0)
== END 2024-06-03 10:57 | disposition home or self-care (01) ==
LOC: HO.WFDLDS 10:56
PROVIDERS: Visit Provider Physician Assistant
DX: E78.2 Mixed hyperlipidemia (principal); F03.90 Unspecified dementia, unspecified severity, without behavioral disturbance, psychotic disturbance, mood disturbance, and anxiety; I10 Essential (primary) hypertension
CPT/HCPCS: 36415; 80053; 80061; 84443; 85025

== ENCOUNTER → 2024-06-30 09:54 | Outpatient (REF) | payer BC, SELFPAY ==
--- NOTE | 2024-06-30 09:57 | CA_ITS ---
Transthoracic Echocardiogram Patient (Last, First, Middle): Alem Posada, Gender: Female Date of : 1940 Age: 83 Procedure Date: 06/30/2024 Procedure Type: Transthoracic Echocardiogram Location: OP Height: 170.18 cm Weight: 68.04 kg BSA: 1.79 m2 Heart Rate: bpm BP: 116 / 60 mmHg Com Writer: Referring MD: Eladia Haji PA-C Symptoms: R07.9 - Chest pain, unspecified Study Quality: Good ECG Rhythm: Sinus Conclusions: - The left ventricular systolic function is normal. The calculated ejection fraction is 60% by biplane method. - The basal inferior and basal inferolateral segments are hypokinetic. - No obvious valvular pathology seen on this study. Findings Left Ventricle Normal left ventricular cavity size. There is normal left ventricular wall thickness. The left ventricular systolic function is normal. The calculated ejection fraction is 60% by biplane method. Evidence suggests grade I (mild) diastolic dysfunction. Wall Motion Rest Echo Findings The basal inferior and basal inferolateral segments are hypokinetic. Right Ventricle Normal right ventricular cavity size and systolic function. Atria Both atria are normal in size. Aortic Valve There is a normal trileaflet aortic valve. There is no aortic valve stenosis. There is no aortic valve regurgitation. Mitral Valve The mitral valve appears normal. There is trace mitral valve regurgitation. There is no mitral valve stenosis. Pulmonic Valve The pulmonic valve is likely normal. Tricuspid Valve There is trace tricuspid valve regurgitation. There is no evidence of pulmonary hypertension. Great Vessels The asc aorta is normal in size. Venous The inferior vena cava is normal in size and collapses greater than 50% with inspiration. Pericardium/Pleural There is no evidence of pericardial effusion. Prior Study Comparison No prior study available for comparison. Recommendations, Care & Conclusions No obvious valvular pathology seen on this study. Measurements 2D Linear Measurements IVSd: 1.05 0.6-0.9/0.6-1.0 cm LVIDd: 4.04 3.9-5.3/4.2-5.9 cm LVIDd Index: 2.26 2.4-3.2/2.2-3.1 cm/m2 LVIDs: 2.63 2.0-3.6 cm LVPWd: 1.01 0.7-1.1 cm Ao Root: 3.10 2.1-3.5 cm LA Diam: 3.30 2.7-3.8/3.0-4.0 cm LAIDs Index: 1.84 1.5-2.3 cm/m2 LV Mass: 167.48 67-162/88-224 g LV Mass Index: 93.57 43-95/49-115 g/m2 LVOT Diam: 2.00 3.0+(-)1.3 cm 2D Systolic Function EF 4C: 58.00 >55% EF 2C: 61.20 >55% EF BiP: 59.50 >55% Mitral Valve MV Pk E: 1.04 MV PK A: 1.18 MV Decel Time: 273.00 E/A: 0.90 E'Lateral: 7.62 E'Medial: 5.55 E/E' Med: 18.70 E/E' Lat: 13.60 PHT: 80.00 MVA PHT: 2.75 Decel [place]: 3.81 Aortic Valve AoV Pk Felix: 1.24 AoV Pk Grad: 6.00 LVOT LVOT Pk Felix: 0.81 LVOT Mn Felix: 0.52 LVOT VTI: 0.22 LVOT Pk Grad: 3.00 LVOT Mn Grad: 1.00 LVOT Diam: 2.00 LVOT Area: 3.14 Diastolic Function MV Pk E: 1.04 MV Pk A: 1.18 E/A: 0.90 E'Medial: 5.55 E/E' Med: 18.70 E' Laterial: 7.62 E/E' Lat: 13.60 Right Ventricle TAPSE (mm): 20.00 TVS' Felix: 10.00 Tricuspid Valve TR Pk Felix: 2.29 TR Pk Grad: 21.00 RA Press: 3.00 RVSP: 24.00 Great Vessels Aorta Ao Root-2D: 3.10 2.0-3.7 cm Ao Asc: 2.90 2.1-3.4 cm Pulmonary Valve PV Pk Felix: 0.94 Peak PV Grad: 4.00 Updated in Other Vendor System with Status of Final Gurdeep Hedrick MD electronically signed on 06/30/2024 3:21:00 PM with status of Final
--- OUTSIDE RECORDS SUMMARY | 2024-06-30 11:12 | XMS_ITS | Encounter Summary ---
Author Organization [facility] Address [address] [place] [address] Care Team Providers Care Manager Story Name Role Phone Evelyn Morales MD Primary Care Provider Unavaila Saima Reyes MD Primary Care Provider Unavaila ble Evelyn Morales MD Primary Care Provider Unavaila ble Andry Love MD Primary Care Provider Unavailable aFbio Watts MD Primary Care Provider Manuela Parr MD Primary Care Provider Eladia Haji PA-C Primary Care Provider Unavail able Keyana Wick DO Primary Care Provider Unavaila Saima Reyes MD Primary Care Provider Unavaila ble Reason for Visit * Reason Onset Date Comments Tour Narrator Feedback 08/31/2014 Dr Sergio Owens Encounter Details Date Type Department Care Team Description 08/31/2014 Telephone Adult Medicine - [address] [address] Evelyn Morales MD Tour Narrator Feedback (Dr Sergio Owens) Social History Tobacco [...] Lovett - 09/01/2014 4:07 PM EDT My malt house supervisor contacted [facility] and was transferred several times until she spoke with Alem. Alem was on the other line with the IT Department trying to get this resolved. We were transferred to [facility] and she took all the information and is going to have someone contact me back to try to get this issue resolved. Ref# for this call is [id number] * Telephone Encounter - Janelle Lovett - 09/01/2014 3:[address] Owens'venkata and relayed this information. Per Preethi at Dr Owens's the CPT codes that were use are 84435 and 86892. And The Dx Code is 366.16 Contacted [facility] back and spoke with Dorie.Dorie states that her department does not process referrals. She advised that I need to talk to [facility] service. She transferred me and I spoke Spoke with Belen. Belen states that patient does in fact require an insurance referral however it need to be processed online. She explained to me that I need to talk with the help desk. She transferred me to [facility]. Jenise stated it was a problem with [employer]. I was then transferred to [employer] Spoke with a man who states that it is not an error with them it is with [facility]. He transferred me backto [facility] IT support. Spoke with Dixon at [facility] IT support who states that because the error comes up when weare using the [employer] cloud it is an error on their end. He apologized for me being bounced around but he could not help me. And told me to contact [employer] * Telephone Encounter - Janelle Lovett - 09/01/2014 2:39 PM EDT Contacted [facility] and Spoke with Frances. Per Frances they will not back date insurance referrals. [place] [address] no referrals are required. I explained that [...] on filedocumented in this encounter Care Teams Manager Story Relationship Specialty Start Date End Date Evelyn Morales MD PCP - General Internal Medicine 06/21/11 02/02/19 Saima Sandoval MD PCP - General Internal Medicine 02/03/19 06/09/20 Evelyn Morales MD PCP - General Internal Medicine 06/10/20 09/11/20 Andry Love MD PCP - General Internal Medicine 09/12/2009/01 Fabio Watts MD [address] [place] [address] PCP - General Internal Medicine 09/14/21 10/31/21 Manuela Parr MD [address] [place], [place] PCP - General Internal Medicine 11/01/21 01/15/22 Eladia Haji PA-C [address] [place], [place] PCP - General Internal Medicine 01/16/22 05/30/22 Keyana Wick DO [address] [place], [place] PCP - General Internal Medicine 05/31/22 10/11/22 Saima Sandoval MD [address] [place] [address] PCP - General Internal Medicine 10/12/22 documented as of this encounter
--- OUTSIDE RECORDS SUMMARY | 2024-06-30 11:12 | XMS_ITS | Encounter Summary ---
Author Organization [facility] Address [facility] [place] [address] Care Team Providers Care Brim Stitcher Name Role Phone Manuela Parr MD Primary Care Provider + [phone] Eladia Haji PA-C Primary Care Provider Unavail able Keyana Wick DO Primary Care Provider Unavaila ble Saima Sandoval MD Primary Care Provider Unavaila ble Reason for Visit * Reason Onset Date Comments EKG 12/20/2021 Encounter Details Date Type Department Care Team Description 12/20/2021 Telephone Cardio PVCA Diag Testing [address] [facility] [address] [place] [address] Yadira Buchanan PA-C [address] [place] [address] EKG Social History Tobacco Use Types Packs/Day [...] filedocumented in this encounter Care Teams Brim Stitcher Relationship Specialty Start Date End Date Manuela Parr MD [address] [place] [address] PCP - General Internal Medicine 11/01/21 01/15/22 Eladia Haji PA-C [address] [place] [address] PCP - General Internal Medicine 01/16/22 05/30/22 Keyana Wick DO [address] [place] [address] PCP - General Internal Medicine 05/31/22 10/11/22 Saima Sandoval MD [address] [place] [address] PCP - General Internal Medicine 10/12/22 documented as of this encounter
--- OUTSIDE RECORDS SUMMARY | 2024-06-30 11:12 | XMS_ITS | Encounter Summary ---
Author Organization [facility] Address [address] [place] [address] Care Team Providers Care Call Center Representative Name Role Phone Evelyn Morales MD Primary Care Provider UnavailSaima Ospina MD Primary Care Provider Unavaila Evelyn Norris MD Primary Care Provider Unavaila Andry Pino MD Primary Care Provider Unavailable Fabio Watts MD Primary Care Provider [phone] Manuela Parr MD Primary Care Provider Eladia Haji PA-C Primary Care Provider Unavail able Keyana Wick DO Primary Care Provider Unavaila Saima Reyes MD Primary Care Provider Unavaila ble Encounter Details Date Type Department Care Team Description 02/05/2015 Refill Adult Medicine - [address] [address] Evelyn Morales MD Social History Tobacco Use [...] MG tablet [Evelyn Morales MD] Preferred pharmacy: [facility] - [address] Comment: documented in this encounter Plan of Treatment Not on file documented as of this encounter Visit Diagnoses Not on filedocumented in this encounter Care Teams Call Center Representative Relationship Specialty Start Date End Date Evelyn Morales MD PCP - General Internal Medicine 06/21/11 02/02/19 Saima Sandoval MD PCP - General Internal Medicine 02/03/19 06/09/20 Evelyn Morales MD PCP - General Internal Medicine 06/10/20 09/11/20 Andry Love MD PCP - General Internal Medicine 09/12/2009/01 Fabio Watts MD [address] [place] [address] PCP - General Internal Medicine 09/14/21 10/31/21 Manuela Parr MD [address] [place] [address] PCP - General Internal Medicine 11/01/21 01/15/22 Eladia Haji PA-C [address] [place] PCP - General Internal Medicine 01/16/22 05/30/22 Keyana Wick DO [address] [place] PCP - General Internal Medicine 05/31/22 10/11/22 Saima Sandoval MD [address] [place] PCP - General Internal Medicine 10/12/22 documented as of this encounter
--- OUTSIDE RECORDS SUMMARY | 2024-06-30 11:12 | XMS_ITS | Encounter Summary ---
Author Organization [facility] Address [address] [place] [address] Care Team Providers Care Pet Feeder Name Role Phone Evelyn Morales MD Primary [...] Team Description 07/15/2015 Refill Adult Medicine - [address] [address] Evelyn Morales MD Social History Tobacco Use [...] Medication Renewal Request Original authorizing provider: MD Aelm Amador would like a refill of the following medications: escitalopram (LEXAPRO) 10 MG tablet [Evelyn Morales MD] Preferred pharmacy: [email or web address] - [address] Comment: documented in this encounter Plan of Treatment Not on file documented as of this encounter Visit Diagnoses Not on filedocumented in this encounter Care Teams Pet Feeder Relationship Specialty Start Date End Date Evelyn Morales MD PCP - General Internal Medicine 06/21/11 02/02/19 Saima Sandoval MD PCP - General Internal Medicine 02/03/19 06/09/20 Evelyn Morales MD PCP - General Internal Medicine 06/10/20 09/11/20 Andry Love MD PCP - General Internal Medicine 09/12/2009/01 Fabio Watts MD [address] [place] [address] PCP - General Internal Medicine 09/14/21 10/31/21 Manuela Parr MD [address] [place] [address] PCP - General Internal Medicine 11/01/21 01/15/22 Eladia Haji PA-C [address] [place] [address] PCP - General Internal Medicine 01/16/22 05/30/22 Keyana Wick DO [address] [place] [address] PCP - General Internal Medicine 05/31/22 10/11/22 Saima Sandoval MD [address] [place] [address] PCP - General Internal Medicine 10/12/22 documented as of this encounter
--- OUTSIDE RECORDS SUMMARY | 2024-06-30 11:12 | XMS_ITS | Clinical Summary ---
Author Organization [facility] Address [address] [place] [phone] Phone Care Team Providers Care Greens Cutter Name Role Phone Noel Tabares MD Unavailable [...] Active Last Documented On 7 9:37PM ; [facility] Abdominal Pain--rlq 03/22/2016 Chantelle Coburn PA-C Active Last Documented On 7 11:09AM ; [facility] Diarrhea 03/22/2016 Chantelle Coburn PA-C Active Last Documented On 7 11:09AM ; [facility] Hyperlipidemia Mixed 03/21/2016 Chantelle Coburn PA-C Active Last Documented On 7 11:13AM ; [facility] Plan of Treatment - Fibrocystic disease of left breast: The patient will be scheduled for mammogram and ultrasound to evaluate her breast. She is counseled self breast exams. She will return to the office after she has the procedure performed - Last Documented On 03/11/2020 11:07AM ; [facility] Instructions to patient Instructions for patient Last Documented On 1 10:34AM ; [facility] Education and Decision Aids were provided during visit for: Education and counseling Last Documented On 1 10:34AM ; [facility] Patient education about a pr oper diet Last Documented On 1 10:34AM ; [facility] Assessments Includes: Assessments from this encounter Findings - Fibrocystic disease of left breast - Last Documented On 03/11/2020 11:07AM ; [facility] Instructions Includes: Instructions from this encounter Instructions to patient Instructions for patient Last Documented On 10:34AM ; [facility] Education and Decision Aids were provided during visit for: Education and counseling Last Documented On 10:34AM ; [facility] Patient education about a pr oper diet Last Documented On 10:34AM ; [facility] Medical Equipment - Implanted Devices Includes: Current Devices No Medical Equipment Recorded Medications Includes: Medications discussed during this encounter and other current Medications Discontinued / Stopped on this date on 03/21/2016 Pravachol 20 MG Tablet Provider: Diagnosis: Last Documented On 10:47AM By Jolanta Blair ; [facility] Current Medications (continue as prescribed) Pravastatin Sodium 40 MG Oral Tablet 03/08/2020 Prov ider: Diagnosis: Last Documented On 10:48AM By Jolanta Blair ; [facility] Losartan Potassium 50 MG Oral Tablet 03/08/2020 Prov ider: Diagnosis: Last Documented On 10:47AM By Jolanta Blair ; [facility] Escitalopram Oxalate 10 MG Oral Tablet 03/08/2020 Pr ovider: Diagnosis: Last Documented On 10:48AM By Jolanta Blair ; [facility] Lexapro 10 MG Tablet 12/15/2015 Provider: Diagnosis: Last Documented On 7 9:24AM By Bonnie Aguirre ; [facility] Past Medications on file PredniSONE 10MG Oral Tablet 05/10/2017 - 05/16/2017 Provider: Sonia Stratton APRN Diagnosis: Allergic urticar ia Take as directed for 6 days. (taper pack) Last Documented On 8 7:29AM By Sonia Stratton APRN ; [facility] Singulair 10MG Oral Tablet 05/10/2017 - 08/08/2017 Provider: Sonia Stratton APRN Diagnosis: Allergic urticar ia take one tab daily Last Documented On 8 7:29AM By Sonia Stratton APRN ; [facility] MetroNIDAZOLE 0.75% External Cream 03/20/2017 - 07/18/2017 Provider: Sonia Stratton APRN 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 BID PRN Last Documented On 8 2:03PM By Sonia Stratton APRN ; [facility] Medications Administered Includes: Administered Medications from [...] Last Documented: On 03/08/2020 10:50A M ; [facility] Results Includes: Results discussed during this encounter No Results Recorded For Specified Dates History of Present Illness Includes: History of Present Illness from this encounter HPI Alem Posada is a 79 year old female. - Allergy list reviewed - Medication reconciliation performed - Medication list reviewed Alem presents to the office today for evaluation. She has her mammograms performed in [place] and was told that she had an abnormal result and to follow-up here in [place]. Unfortunately those records are not available. She [...] 03/08/2020 Last Documented On 1 11:07AM ; [facility] Non-smoker 03/08/2020 Last Documented On 1 11:07AM ; [facility] Smoking status : Never smoker 03/08/2020 Last Documented On 11:07AM ; [facility] Alcohol use 03/21/2016 Last Documented On 10:07AM ; [facility] Caffeine use 03/21/2016 Last Documented On 10:07AM ; [facility] Procedures and Surgical History Includes: Procedures from this encounter Procedures Code Diagnosis Performing Provider Service L ocation Service Date education and instructions Last Documented On 10:34AM ; [facility] medication list documented 1159F Last Documented On 10:34AM ; [facility] review of medications documented 1160F Last Documented On 10:34AM ; [facility] body mass index documented 3008F Last Documented On 10:34AM ; [facility] PQRI-Most recent systolic BP < 130 mm Hg 3074F Last Documented On 1 10:50AM ; [facility] PQRI-Most recent diastolic BP < 80 mm Hg 3078F Last Documented On 10:50AM ; [facility] Clinical summary provided to patient Last Documented On 10:34AM ; [facility] Surgical History Last Updated History of hysterectomy 1984 03/21/2016 Last Documented On 1 10:07AM ; [facility] Medical History Includes: Medical History addressed during this encounter Description Last Updated History of arthritis 03/21/2016 Last Documented On 1 10:07AM ; [facility] History of diverticulosis of intestine 0 03/21/2016 Last Documented On 1 10:07AM ; [facility] Family History Includes: Family History addressed during this encounter Description Last Updated Family history of a history of cancer Last Documented On 1 11:07AM ; [facility] Family history of colonic and rectal dis orders 03/08/2020 Last Documented On 11:07AM ; [facility] Family history of cancer 04/03/2016 Last Documented On 1 10:07AM ; [facility] Family history of due to suicide 0 04/03/2016 Last Documented On 1 10:07AM ; [facility] Family history of diabetes mellitus 03/06 Last Documented On 1 10:07AM ; [facility] Family history of hyperlipidemia 017 Last Documented On 1 10:07AM ; [facility] Family history of hypertension 7 Last Documented On 1 10:07AM ; [facility] Family history of osteoporosis 7 Last Documented On 1 10:07AM ; [facility] Fraternal history of due to suicid e 04/03/2016 Last Documented On 1 10:07AM ; [facility] Maternal history of hypertension 017 Last Documented On 1 10:07AM ; [facility] Maternal history of osteoporosis 017 Last Documented On 1 10:07AM ; [facility] Paternal history of family history of ca ncer 04/03/2016 Last Documented On 1 10:07AM ; [facility] Paternal history of hyperlipidemia 04/03 Last Documented On 1 10:07AM ; [facility] Son's history of diabetes mellitus 04/03 Last Documented On 1 10:07AM ; [facility] Review of Systems Includes: Review of [...] e Last Documented On 1 10:46AM ; [facility] Encounters Encounter Provider Location Date Check-In Time Check-Out Time Diagnosis New Patient Visit Noel Tabares MD [facility] 03/08/19 21 10:34AM 11:23AM Breast Fibrocystic Disease Left Insurance Includes: Active Insurance Policies Plan Name Member ID Group # Subscriber Relationship Effect ajay Dates 1 - Blue Medicare PPO [id number] Alem Posada Self Advance Directives Includes: Current Advance Directives Directive Pat Aware Third Republican Effective Date Reviewed Sta tus Declined to provide Advanced Directive Yes 03/16/2020 Current a nd Verified Clinical Notes Includes: Clinical Notes from this encounter No Clinical Notes Recorded
--- OUTSIDE RECORDS SUMMARY | 2024-06-30 11:12 | XMS_ITS | Encounter Summary ---
Author Organization [facility] Address [address] [place] [address] Care Team Providers Care Public Health Sanitarian Technician Name Role Phone Evelyn Morales MD Primary Care Provider Unavaila Saima Reyes MD Primary Care Provider Unavaila Evelyn Norris MD Primary Care Provider Unavaila Andry Pino MD Primary Care Provider Unavailable Fabio Watts MD Primary Care Provider [phone] Manuela Parr MD Primary Care Provider Eladia Haji PA-C Primary Care Provider Unavail able Keyana Wick DO Primary Care Provider Unavaila Saima Reyes MD Primary Care Provider Unavaila ble Encounter Details Date Type Department Care Team Description 10/02/2013 Refill Adult Medicine - [address] [address] Evelyn Morales MD Social History Tobacco Use [...] MG tablet [Evelyn Morales MD] Preferred pharmacy: [facility] - [address] Comment: documented in this encounter Plan of Treatment Not on file documented as of this encounter Visit Diagnoses Diagnosis Anxiety- Primary Anxiety state, unspecified documented in this encounter Care Teams Public Health Sanitarian Technician Relationship Specialty Start Date End Date Evelyn Morales MD PCP - General Internal Medicine 06/21/11 02/02/19 Saima Sandoval MD PCP - General Internal Medicine 02/03/19 06/09/20 Evelyn Morales MD PCP - General Internal Medicine 06/10/20 09/11/20 Andry Love MD PCP - General Internal Medicine 09/12/2009/01 Fabio Watts MD [address] [place] [address] PCP - General Internal Medicine 09/14/21 10/31/21 Manuela Parr MD [address] [place] [address] PCP - General Internal Medicine 11/01/21 01/15/22 Eladia Haji PA-C [address], [place] PCP - General Internal Medicine 01/16/22 05/30/22 Keyana Wick DO [address] [place] [address] PCP - General Internal Medicine 05/31/22 10/11/22 Saima Sandoval MD [address] [place] [address] PCP - General Internal Medicine 10/12/22 documented as of this encounter
--- OUTSIDE RECORDS SUMMARY | 2024-06-30 11:12 | XMS_ITS ---
Author Organization [facility] Address [address] [place] [phone] Phone Care Team Providers Care Poultry Process Worker Name Role Phone Noel Tabares MD Unavailable Problems Includes: Active, inactive, and resolved Problems All Visits Onset Date Resolved Date Provider Condition S tatus Abdominal Pain--ruq 04/03/2016 Chantelle Coburn PA-C Active Last Documented On 7 9:37PM ; [facility] Abdominal Pain--llq 03/22/2016 Unknown Chantelle Coburn PA-C Resolved Last Documented On 7 9:38PM ; [facility] Abdominal Pain--rlq 03/22/2016 Chantelle Coburn PA-C Active Last Documented On 7 11:09AM ; [facility] Diarrhea 03/22/2016 Chantelle Coburn PA-C Active Last Documented On 7 11:09AM ; [facility] Hyperlipidemia Mixed 03/21/2016 Chantelle Coburn PA-C Active Last Documented On 7 11:13AM ; [facility] Plan of Treatment Findings Encounter Date Fibrocystic disease of left breast : The patient will be scheduled for mammogram and ultrasound to evaluate her breast. She is counseled self breast exams. She will return to the office after she has the procedure performed New Patient Visit with Noel Tabares MD 03/08/2020 Last Documented On 1 11:07AM ; [facility] AP 1. Abd pain- get labs, CT as above. Addendum- CT abd/pelvis unremarakble on wet read, has low WBC to 2.9, with fatigue, fever to 102-103, will send to hematology for further workup. Pt is aware Office Visit with David Corbin DO 06/04/2017 Last Documented On 8 7:02AM ; [facility] Clinical summary provided to patient Office Visi t with David Corbin DO 06/04/2017 Last Documented On 8 7:02AM ; [facility] Follow-up visit Office Visit with David schwartz DO 06/04/2017 Last Documented On 8 7:02AM ; [facility] Clinical summary provided to patient Off ice Visit with Sonia Stratton APRN 05/10/2017 Last Documented On 8 5:12PM ; [facility] Follow-up visit with dermato logy if symptoms persist Office Visit with Sonia Stratton APRN 05/10/2017 Last Documented On 8 5:12PM ; [facility] Clinical summary provided to patient Off ice Visit with Sonia Stratton APRN 03/20/2017 Last Documented On 8 4:07PM ; [facility] Follow-up visit as needed Office Visit with Anyi Stratton APRN 03/20/2017 Last Documented On 8 4:07PM ; [facility] Discussed pt concerns. Will get CT REGINO.. Continue with current bland diet/clear fluids. Aware may need additional testing or specialty evaluation. Follow up pending results Office Visit with Chantelle Coburn PA-C 04/03/2016 Last Documented On 7 9:38PM ; [facility] Disposition: stable Office Visit with Chantelle Coburn PA-C 04/03/2016 Last Documented On 7 9:38PM ; [facility] Discussed pt concerns. Kyler nue with current bland diet. Will get labs for above. Pt aware that may need additional medication and or evaluation. Hand out given for Diverticular diet. Follow up pending progress, results. Otherwise follow up with PCP as would normally New Patient Visit with Chantelle Coburn PA-C 03/21/2016 Last Documented On 7 11:15AM ; [facility] Disposition: stable New Patient Visit with Chantelle Coburn PA-C 03/21/2016 Last Documented On 7 11:15AM ; [facility] Referrals To Diagnosis Dermatology - [facility] Rosacea, unsp ecified Last Documented On 8 3:24PM ; [facility] Hematology/Oncology Other decrea sed white blood cell count Note: refer to dharmesh mooney at [facility] cancer specialist within 1-2 wks. Pt has fever to 102, fatigue, low appetite wtih wbc to 2.9, low neutrophils. Last Documented On 8 5:06PM ; [facility] Instructions to patient Instructions for patient Last Documented On 1 10:34AM ; [facility] Instructions for patient Last Documented On 8 1:40PM ; [facility] Instructions for patient Last Documented On 8 7:24AM ; [facility] Instructions for patient Last Documented On 8 1:58PM ; [facility] Instructions for patient Last Documented On 7 8:53AM ; [facility] Instructions for patient Last Documented On 7 11:35AM ; [facility] Education and Decision Aids were provided during visit for: Education and counseling Last Documented On 1 10:34AM ; [facility] Patient education about a pr oper diet Last Documented On 1 10:34AM ; [facility] Education and counseling Last Documented On 8 1:40PM ; [facility] Patient education about a pr oper diet Last Documented On 8 4:35PM ; [facility] Patient education about medi cation Last Documented On 8 1:49PM ; [facility] Self-management goals set fo r patient Last Documented On 8 1:49PM ; [facility] Education and counseling Last Documented On 8 7:24AM ; [facility] Patient education about a pr oper diet Last Documented On 8 7:24AM ; [facility] Patient education about medi cation Last Documented On 8 7:24AM ; [facility] Self-management goals set fo r patient Last Documented On 8 7:24AM ; [facility] Education and counseling Last Documented On 8 1:58PM ; [facility] Patient education about a pr oper diet Last Documented On 8 1:58PM ; [facility] Patient education about medi cation Last Documented On 8 1:58PM ; [facility] Self-management goals set fo r patient Last Documented On 8 1:58PM ; [facility] Education and counseling Last Documented On 7 8:53AM ; [facility] Education and counseling Last Documented On 7 11:35AM ; [facility] Patient education about a pr oper diet Last Documented On 7 11:14AM ; [facility] Assessments Includes: Assessments for all patient encounters Findings Encounter Date Fibrocystic disease of left breast New P atient Visit with Noel Tabares MD 03/08/2020 Last Documented On 1 11:07AM ; [facility] Abdominal pain--RLQ Office Visit with David genao DO 06/04/2017 Last Documented On 8 7:02AM ; [facility] Leukopenia Office Visit with David schwartz DO 06/04/2017 Last Documented On 8 7:02AM ; [facility] Allergic urticaria Office Visit with Snoia Stratton PROCESS ANALYST 05/10/2017 Last Documented On 8 5:12PM ; [facility] Rosacea Office Visit with Sonia beard PROCESS ANALYST 03/20/2017 Last Documented On 8 4:07PM ; [facility] Abdominal pain--RLQ Office Visit with Chantelle Coburn PA-C 04/03/2016 Last Documented On 7 9:38PM ; [facility] Abdominal pain--RUQ Office Visit with Chantelle Coburn PA-C 04/03/2016 Last Documented On 7 9:38PM ; [facility] Diarrhea Office Visit with Chantelle Rodriguez 04/03/2016 Last Documented On 7 9:38PM ; [facility] Abdominal pain--LLQ , improved New Patient Visit with Chantelle Coburn PA-C 03/21/2016 Last Documented On 7 11:15AM ; [facility] Abdominal pain--RLQ , improved New Patient Visit with Chantelle Coburn PA-C 03/21/2016 Last Documented On 7 11:15AM ; [facility] Diarrhea , improved New Patient Visit with Chantelle Coburn PA-C 03/21/2016 Last Documented On 7 11:15AM ; [facility] Visit for: screening for depression New Patient Visit with Chantelle Coburn PA-C 03/21/2016 Last Documented On 7 11:15AM ; [facility] Instructions Includes: Instructions for all patient encounters Instructions to patient Instructions for patient Last Documented On 1 10:34AM ; [facility] Instructions for patient Last Documented On 8 1:40PM ; [facility] Instructions for patient Last Documented On 8 7:24AM ; [facility] Instructions for patient Last Documented On 8 1:58PM ; [facility] Instructions for patient Last Documented On 7 8:53AM ; [facility] Instructions for patient Last Documented On 7 11:35AM ; [facility] Education and Decision Aids were provided during visit for: Education and counseling Last Documented On 1 10:34AM ; [facility] Patient education about a pr oper diet Last Documented On 1 10:34AM ; [facility] Education and counseling Last Documented On 8 1:40PM ; [facility] Patient education about a pr oper diet Last Documented On 8 4:35PM ; [facility] Patient education about medi cation Last Documented On 8 1:49PM ; [facility] Self-management goals set fo r patient Last Documented On 8 1:49PM ; [facility] Education and counseling Last Documented On 8 7:24AM ; [facility] Patient education about a pr oper diet Last Documented On 8 7:24AM ; [facility] Patient education about medi cation Last Documented On 8 7:24AM ; [facility] Self-management goals set fo r patient Last Documented On 8 7:24AM ; [facility] Education and counseling Last Documented On 8 1:58PM ; [facility] Patient education about a pr oper diet Last Documented On 8 1:58PM ; [facility] Patient education about medi cation Last Documented On 8 1:58PM ; [facility] Self-management goals set fo r patient Last Documented On 8 1:58PM ; [facility] Education and counseling Last Documented On 7 8:53AM ; [facility] Education and counseling Last Documented On 7 11:35AM ; [facility] Patient education about a pr oper diet Last Documented On 7 11:14AM ; [facility] Medical Equipment - Implanted Devices Includes: Current and historical Devices No Medical Equipment Recorded Medications Includes: Current and historical Medications Current Medications (continue as prescribed) Pravastatin Sodium 40 MG Oral Tablet 03/08/2020 Prov ider: Diagnosis: Last Documented On 1 10:48AM By Jolanta Blair ; [facility] Losartan Potassium 50 MG Oral Tablet 03/08/2020 Prov ider: Diagnosis: Last Documented On 1 10:47AM By Jolanta Blair ; [facility] Escitalopram Oxalate 10 MG Oral Tablet 03/08/2020 Pr ovider: Diagnosis: Last Documented On 1 10:48AM By Jolanta Blair ; [facility] Lexapro 10 MG Tablet 12/15/2015 Provider: Diagnosis: Last Documented On 7 9:24AM By Bonnie Aguirre ; [facility] Past Medications on file PredniSONE 10MG Oral Tablet 05/10/2017 - 05/16/2017 Provider: Sonia Stratton APRN Diagnosis: Allergic urticar ia Take as directed for 6 days. (taper pack) Last Documented On 8 7:29AM By Sonia Stratton APRN ; [facility] Singulair 10MG Oral Tablet 05/10/2017 - 08/08/2017 Provider: Sonia Stratton APRN Diagnosis: Allergic urticar ia take one tab daily Last Documented On 8 7:29AM By Sonia Stratton APRN ; [facility] MetroNIDAZOLE 0.75% External Cream 03/20/2017 - 07/18/2017 Provider: Sonia Stratton APRN 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 BID PRN Last Documented On 8 2:03PM By Sonia Stratton APRN ; [facility] Cipro 500 MG Tablet 03/29/2016 - 04/03/2016 Provider: Chantelle Coburn PA-C Diagnosis: Left lower quadr ant pain i po bid Last Documented On 7 9:23AM By Bonnie Aguirre ; [facility] Flagyl 250 MG Tablet 03/29/2016 - 04/03/2016 Provider: Chantelle Coburn PA-C Diagnosis: Left lower quadr ant pain i po qid Last Documented On 7 9:24AM By Bonnie Aguirre ; [facility] Pravachol 20 MG Tablet 03/21/2016 - 03/08/2020 Provide r: Diagnosis: ? on dose. Last Documented On 1 10:47AM By Jolanta Blair ; [facility] Medications Administered Includes: Administered Medications in patient's chart Medications Administered Diagnosis Date Pro vider Gastrografin 66-10% OR SOLN Right upper quadrant pain 04/12/2016 Darius Cooney D.O. Last Documented On 7 10:57AM By Deb Tan ; [facility] Isovue-300 61% IV SOLN Right upper quadrant pain 04/12 Darius Cooney D.O. pt injected rt ac Last Documented On 7 10:56AM By Deb Tan ; [facility] Results Includes: Results from 07/01/2023 through 06/30/2024 No Results Recorded For Specified Dates History of Present Illness History of Present Illness not supported for this document type No History of Present Illness Recorded Social History Description Last Updated No tobacco use 03/08/2020 Last Documented On 1 11:07AM ; [facility] Non-smoker 03/08/2020 Last Documented On 1 11:07AM ; [facility] Smoking status : Never smoker 03/08/2020 Last Documented On 1 11:07AM ; [facility] Alcohol use 03/21/2016 Last Documented On 7 11:15AM ; [facility] Caffeine use 03/21/2016 Last Documented On 7 11:15AM ; [facility] Procedures and Surgical History Surgical History Last Updated History of hysterectomy 1984 03/21/2016 Last Documented On 7 11:15AM ; [facility] Medical History Includes: Medical History in patient's chart Description Last Updated History of arthritis 03/21/2016 Last Documented On 7 11:15AM ; [facility] History of diverticulosis of intestine 0 03/21/2016 Last Documented On 7 11:15AM ; [facility] Family History Includes: Family History in patient's chart Description Last Updated Family history of a history of cancer Last Documented On 1 11:07AM ; [facility] Family history of colonic and rectal dis orders 03/08/2020 Last Documented On 1 11:07AM ; [facility] Family history of cancer 04/03/2016 Last Documented On 7 9:38PM ; [facility] Family history of due to suicide 0 04/03/2016 Last Documented On 7 9:38PM ; [facility] Family history of diabetes mellitus 03/06 Last Documented On 7 9:38PM ; [facility] Family history of hyperlipidemia 017 Last Documented On 7 9:38PM ; [facility] Family history of hypertension 7 Last Documented On 7 9:38PM ; [facility] Family history of osteoporosis 7 Last Documented On 7 9:38PM ; [facility] Fraternal history of due to suicid e 04/03/2016 Last Documented On 7 9:38PM ; [facility] Maternal history of hypertension 017 Last Documented On 7 9:38PM ; [facility] Maternal history of osteoporosis 017 Last Documented On 7 9:38PM ; [facility] Paternal history of family history of ca ncer 04/03/2016 Last Documented On 7 9:38PM ; [facility] Paternal history of hyperlipidemia 04/03 Last Documented On 7 9:38PM ; [facility] Son's history of diabetes mellitus 04/03 Last Documented On 7 9:38PM ; [facility] Review of Systems Review of Systems not [...] Activ e Last Documented On 10:46AM ; [facility] Insurance Includes: Active Insurance Policies Plan Name Member ID Group # Subscriber Relationship Effect ajay Dates 1 - Blue Medicare PPO [id number] Alem Posada Self Advance Directives Includes: Current Advance Directives Directive Pat Aware Third Democrat Effective Date Reviewed Sta tus Declined to provide Advanced Directive Yes 03/16/2020 Current a nd Verified Clinical Notes Includes: Signed Clinical Notes starting from 02/17/2022 No Clinical Notes Recorded
--- OUTSIDE RECORDS SUMMARY | 2024-06-30 11:12 | XMS_ITS | Encounter Summary ---
Author Organization [facility] Address [address] [place] [address] Care Team Providers Care Float Remover Name Role Phone Manuela Parr MD Primary Care Provider [phone] Eladia Haji PA-C Primary Care Provider Unavail able Keyana Wick DO Primary Care Provider Unavaila ble Saima Sandoval MD Primary Care Provider Unavaila ble Encounter Details Date Type Department Care Team Description 01/10/2022 Orders Only Cardio PVCA Diag Testing [address] [facility] [address] [place] [id number] Eladia Haji PA-C Syncope and collapse (Primary Dx); Abnormal EKG; Essential (primary) hypertension; Other amnesia Social History [...] documented as of this encounter Results * ECG HOLTER MONITOR, REVIEW/INTERP (02/01/2022) Eladia Haji PA-C CARDIOLOGY Performing Organization Address [facility] de Phone Number PVCA * STRESS ECHOCARDIOGRAM WITH CONTRAST IF CLINICALLY INDICATED (01/16/2022) Eladia Haji PA-C CARDIOLOGY Performing Organization Address [facility] Co de Phone Number PVCA documented in this encounter Visit Diagnoses Diagnosis Syncope and collapse- Primary Abnormal EKG Nonspecific abnormal electrocardiogram (ECG) (EKG) Essential (primary) hypertension Unspecified essential hypertension Other amnesia documented in this encounter Care Teams Float Remover Relationship Specialty Start Date End Date Manuela Parr MD [address] [place] [address] PCP - General Internal Medicine 11/01/21 01/15/22 Eladia Haji PA-C [address] [place] [address] PCP - General Internal Medicine 01/16/22 05/30/22 Keyana Wick DO [address] [place] [address] PCP - General Internal Medicine 05/31/22 10/11/22 Saima Sandoval MD [address] [place] [address] PCP - General Internal Medicine 10/12/22 documented as of this encounter
--- OUTSIDE RECORDS SUMMARY | 2024-06-30 11:13 | XMS_ITS | Encounter Summary ---
Author Organization [facility] Address [address] [place] [address] Care Team Providers Care Mutual Fund Manager Name Role Phone Manuela Parr MD Primary Care Provider [phone] Eladia Haji PA-C Primary Care Provider Unavail able Keyana Wick DO Primary Care Provider Unavaila Saima Reyes MD Primary Care Provider Tiny chavira Encounter Details Date Type Department Care Team Description 01/12/2022 [facility] Medical Records [address] [place] [id number] [place] [address] Social History Tobacco Use Types Packs/Day Years [...] on filedocumented in this encounter Care Teams Mutual Fund Manager Relationship Specialty Start Date End Date Manuela Parr MD [address] [place] [address] PCP - General Internal Medicine 11/01/21 01/15/22 Eladia Haji PA-C [address] [place], [place] PCP - General Internal Medicine 01/16/22 05/30/22 Keyana Wick DO [address] [place], [place] PCP - General Internal Medicine 05/31/22 10/11/22 Saima Sandoval MD [address] [place] [id number] PCP - General Internal Medicine 10/12/22 documented as of this encounter
--- OUTSIDE RECORDS SUMMARY | 2024-06-30 11:13 | XMS_ITS | Encounter Summary ---
Author Organization [facility] Address [address] [place] [address] Care Team Providers Care Riprap Man Name Role Phone Evelyn Morales MD Primary Care Provider UnavailSaima Ospina MD Primary Care Provider Unavaila Evelyn Norris MD Primary Care Provider Unavaila Andry Pino MD Primary Care Provider Unavailable Fabio Watts MD Primary Care Provider Manuela Parr MD Primary Care Provider [phone] Eladia Haji PA-C Primary Care Provider Unavail able Keyana Wick DO Primary Care Provider Unavaila Saima Reyes MD Primary Care Provider Unavaila cait Encounter Details Date Type Department Care Team Description 09/17/2011 Radio Director Report Medical Records [address] [place] [address] Jodi George MD Social History Tobacco Use [...] on filedocumented in this encounter Care Teams Riprap Man Relationship Specialty Start Date End Date Evelyn Morales MD PCP - General Internal Medicine 06/21/11 02/02/19 Saima Sandoval MD PCP - General Internal Medicine 02/03/19 06/09/20 Evelyn Morales MD PCP - General Internal Medicine 06/10/20 09/11/20 Andry Love MD PCP - General Internal Medicine 09/12/2009/01 Fabio Watts MD [address] [place] [address] PCP - General Internal Medicine 09/14/21 10/31/21 Manuela Parr MD [address] [place] [address] PCP - General Internal Medicine 11/01/21 01/15/22 Eladia Haji PA-C [address] [place], [place] PCP - General Internal Medicine 01/16/22 05/30/22 Keyana Wick DO [address] [place] [address] PCP - General Internal Medicine 05/31/22 10/11/22 Saima Sandoval MD [address] [place], [place] PCP - General Internal Medicine 10/12/22 documented as of this encounter
--- OUTSIDE RECORDS SUMMARY | 2024-06-30 11:13 | XMS_ITS | Encounter Summary ---
Author Organization [facility] Address [address] [place] [address] Care Team Providers Care Adjunct Faculty Mathematics Department Name Role Phone Evelyn Morales MD Primary Care Provider Unavaila Saima Reyes MD Primary Care Provider Unavaila Evelyn Norris MD Primary Care Provider Unavaila Andry Pino MD Primary Care Provider Unavailable Fabio Watts MD Primary Care Provider [phone] Manuela Parr MD Primary Care Provider [phone] Eladia Haji PA-C Primary Care Provider Unavail able Keyana Wick DO Primary Care Provider Unavaila Saima Reyes MD Primary Care Provider Unavaila ble Encounter Details Date Type Department Care Team Description 02/23/2016 Pt. Non Urgent Medical Question Adult Medicine - [address] [address] Evelyn Morales MD Social History Tobacco Use [...] on filedocumented in this encounter Care Teams Adjunct Faculty Mathematics Department Relationship Specialty Start Date End Date Evelyn Morales MD PCP - General Internal Medicine 06/21/11 02/02/19 Saima Sandoval MD PCP - General Internal Medicine 02/03/19 06/09/20 Evelyn Morales MD PCP - General Internal Medicine 06/10/20 09/11/20 Andry Love MD PCP - General Internal Medicine 09/12/2009/01 Fabio Watts MD [address] [place] [address] PCP - General Internal Medicine 09/14/21 10/31/21 Manuela Parr MD [address] [place] [address] PCP - General Internal Medicine 11/01/21 01/15/22 Eladia Haji PA-C [address] [place] [address] PCP - General Internal Medicine 01/16/22 05/30/22 Keyana Wick DO [address] [place] [address] PCP - General Internal Medicine 05/31/22 10/11/22 Saima Sandoval MD [address] [place] [address] PCP - General Internal Medicine 10/12/22 documented as of this encounter
--- OUTSIDE RECORDS SUMMARY | 2024-06-30 11:13 | XMS_ITS | Encounter Summary ---
Author Organization [facility] Address [address] [place] [address] Care Team Providers Care Sports Therapist Name Role Phone Evelyn Morales MD Primary [...] Date Type Department Care Team Description 09/11/2010 Private Chef Report Medical Records [address] [place] [address] Jay Black Social History Tobacco Use Types Packs/Day Years Used Date Smoking Tobacco: Never Assessed Sex Assigned at Date Recorded Not on file Job Start Date Occupation Industry Not on file Not on file Not on file documented as of this encounter Plan of Treatment Not on file documented as of this encounter Visit Diagnoses Not on filedocumented in this encounter Care Teams Sports Therapist Relationship Specialty Start Date End Date Evelyn [...] Internal Medicine 09/12/2009/01 Fabio Watts MD [address] [place] [address] PCP - General Internal Medicine 09/14/21 10/31/21 Manuela Parr MD [address] [place] [address] PCP - General Internal Medicine 11/01/21 01/15/22 Eladia Haji PA-C [address] [place], [place] PCP - General Internal Medicine 01/16/22 05/30/22 Keyana Wick DO [address] [place], [place] PCP - General Internal Medicine 05/31/22 10/11/22 Saima Sandoval MD [address] [place], [place] PCP - General Internal Medicine 10/12/22 documented as of this encounter
--- OUTSIDE RECORDS SUMMARY | 2024-06-30 11:13 | XMS_ITS | Encounter Summary ---
Author Organization [facility] Address [address] [place] [address] Care Team Providers Care Operations Planner Name Role Phone Saima Sandoval MD Primary Care Provider Unavaila Evelyn Norris MD Primary Care Provider Unavaila Andry Pino MD Primary Care Provider Unavailable Fabio Watts MD Primary Care Provider [phone] Manuela Parr MD Primary Care Provider Eladia Haji PA-C Primary Care Provider Unavail able Keyana Wick DO Primary Care Provider Unavaila Saima Reyes MD Primary Care Provider Unavailkandis chavira Encounter Details Date Type Department Care Team Description 05/25/2019 Refill Medicine/Pediatrics - [address] [phone] Saima Sandoval MD Social History Tobacco Use [...] on filedocumented in this encounter Care Teams Operations Planner Relationship Specialty Start Date End Date Saima Sandoval MD PCP - General Internal Medicine 02/03/19 06/09/20 Evelyn Morales MD PCP - General Internal Medicine 06/10/20 09/11/20 Andry Love MD PCP - General Internal Medicine 09/12/2009/01 Fabio Watts MD [address] [place] [address] PCP - General Internal Medicine 09/14/21 10/31/21 Manuela Parr MD [address] [place] [address] PCP - General Internal Medicine 11/01/21 01/15/22 Eladia Haji PA-C [address] [place] [address] PCP - General Internal Medicine 01/16/22 05/30/22 Keyana Wick DO [address] [place], [place] PCP - General Internal Medicine 05/31/22 10/11/22 Saima Sandoval MD [address] [place] [address] PCP - General Internal Medicine 10/12/22 documented as of this encounter
--- OUTSIDE RECORDS SUMMARY | 2024-06-30 11:13 | XMS_ITS | Encounter Summary ---
Author Organization [facility] Address [address] [place] [address] Care Team Providers Care Cytometry Technologist Name Role Phone Manuela Parr MD Primary Care Provider [phone] Eladia Haji PA-C Primary Care Provider Unavail able Keyana Wick DO Primary Care Provider Unavaila ble Saima Sandoval MD Primary Care Provider Unavaila ble Encounter Details Date Type Department Care Team Description 01/09/2022 Orders Only Cardio PVCA Diag Testing [address] [address] Eladia Haji PA-C Syncope and collapse (Primary [...] amnesia documented in this encounter Care Teams Cytometry Technologist Relationship Specialty Start Date End Date Manuela Parr MD [address] [place], [place] [phone] PCP - General Internal Medicine 11/01/21 01/15/22 Eladia Haji PA-C [address] [place] [address] PCP - General Internal Medicine 01/16/22 05/30/22 Keyana Wick DO [address] [place] [address] PCP - General Internal Medicine 05/31/22 10/11/22 Saima Sandoval MD [address] [place] [address] PCP - General Internal Medicine 10/12/22 documented as of this encounter
--- OUTSIDE RECORDS SUMMARY | 2024-06-30 11:13 | XMS_ITS | Encounter Summary ---
Author Organization [facility] Address [address] [place] [address] Care Team Providers Care Front Desk Person Name Role Phone Evelyn Morales MD Primary [...] Team Description 08/04/2018 Refill Adult Medicine - [address] [address] Sofie Donnelly PA-C Social History Tobacco Use [...] MG tablet [Sofie Donnelly PA-C] Preferred pharmacy: [facility] - [address] Comment: Express You[facility], Pravastatin 40 mg. 90 day documented in this encounter Plan of Treatment Not on file documented as of this encounter Visit Diagnoses Not on filedocumented in this encounter Care Teams Front Desk Person Relationship Specialty Start Date End Date Evelyn Morales MD PCP - General Internal Medicine 06/21/11 02/02/19 Saima Sandoval MD PCP - General Internal Medicine 02/03/19 06/09/20 Evelyn Morales MD PCP - General Internal Medicine 06/10/20 09/11/20 Andry Love MD PCP - General Internal Medicine 09/12/2009/01 Fabio Watts MD [address] [place] [address] PCP - General Internal Medicine 09/14/21 10/31/21 Manuela Parr MD [address] [place], [place] PCP - General Internal Medicine 11/01/21 01/15/22 Eladia Haji PA-C [address] [place], [place] PCP - General Internal Medicine 01/16/22 05/30/22 Keyana Wick DO [address] [place], [place] PCP - General Internal Medicine 05/31/22 10/11/22 Saima Sandoval MD [address] [place], [place] PCP - General Internal Medicine 10/12/22 documented as of this encounter
--- OUTSIDE RECORDS SUMMARY | 2024-06-30 11:13 | XMS_ITS | Encounter Summary ---
Author Organization [facility] Address [address] [place] [address] Care Team Providers Care Tenant Selector Name Role Phone Andry Love MD Primary Care Provider Unavailable Fabio Watts MD Primary Care Provider Manuela Parr MD Primary Care Provider [phone] Eladia Haji PA-C Primary Care Provider Unavail able Keyana Wick DO Primary Care Provider UnavailSaima Ospina MD Primary Care Provider Unavailkandis chavira Encounter Details Date Type Department Care Team Description 01/11/2021 Refill Adult Medicine - [place] [address] [place] [address] Evelyn Morales MD Social History Tobacco Use [...] Notes * Telephone Encounter - Yun Malagon M.A. - 01/12/2021 10:51 AM EST [place] - 08/16/20 Nov - none Lab Results Component Value Date CHOL 232 02/03/2020 LDL 132 02/03/2020 HDL 56 02/03/2020 TRIG 224 02/03/2020 SGOT 31 02/03/2020 SGPT 43 02/03/2020 Pcp out of office this week. Thank you documented in this encounter Plan of Treatment Not on file documented as of this encounter Visit Diagnoses Not on filedocumented in this encounter Care Teams Tenant Selector Relationship Specialty Start Date End Date Andry Love MD PCP - General Internal Medicine 09/12/2009/01 Fabio Watts MD [address] [place] [address] PCP - General Internal Medicine 09/14/21 10/31/21 Manuela Parr MD [address] [place] [address] PCP - General Internal Medicine 11/01/21 01/15/22 Eladia Haji PA-C [address] [place] [address] PCP - General Internal Medicine 01/16/22 05/30/22 Keyana Wick DO [address] [place], [place] PCP - General Internal Medicine 05/31/22 10/11/22 Saima Sandoval MD [address] [place] [address] PCP - General Internal Medicine 10/12/22 documented as of this encounter
--- OUTSIDE RECORDS SUMMARY | 2024-06-30 11:13 | XMS_ITS | Clinical Summary ---
Author [facility] Address [address] [place] [phone] Phone Care Team Providers Care Dental Front Office Assistant Name Role Phone Noel Tabares MD Unavailable Unavailable Reason for Visit and Chief Complaint The Chief Complaint is: Patient C/O swollen face ? sinus. for 2 weeks Problems Includes: Problems addressed during this encounter and other active Problems All Visits Onset Date Resolved Date Provider Condition S tatus Abdominal Pain--ruq 04/03/2016 Chantelle Coburn PA-C Active Last Documented On 7 9:37PM ; [facility], [facility] Abdominal Pain--rlq 03/22/2016 Chantelle Coburn PA-C Active Last Documented On 7 11:09AM ; [facility] Diarrhea 03/22/2016 Chantelle Coburn PA-C Active Last Documented On 7 11:09AM ; [facility] Hyperlipidemia Mixed 03/21/2016 Chantelle Coburn PA-C Active Last Documented On 7 11:13AM ; [facility], [facility] Plan of Treatment - Follow-up visit with dermatology if symptoms persist - Last Documented On 05/13/2017 5:12PM ; [facility] - Clinical summary provided to patient - Last Documented On 05/13/2017 5:12PM ; [facility] 1. allergic urticaria- advised to keep allergy diary avoid using any new cosmetics/lotions etc started on singulair 10mg once daily 6 day prednisone taper pack - Last Documented On 05/13/2017 5:12PM ; [facility] Instructions to patient Instructions for patient Last Documented On 8 7:24AM ; [facility] Education and Decision Aids were provided during visit for: Education and counseling Last Documented On 8 7:24AM ; [facility] Patient education about a pr oper diet Last Documented On 8 7:24AM ; [facility] Patient education about medi cation Last Documented On 8 7:24AM ; [facility], [facility] Self-management goals set fo r patient Last Documented On 8 7:24AM ; [facility] Assessments Includes: Assessments from this encounter Findings - Allergic urticaria - Last Documented On 05/13/2017 5:12PM ; [facility] Instructions Includes: Instructions from this encounter Instructions to patient Instructions for patient Last Documented On 8 7:24AM ; [facility] Education and Decision Aids were provided during visit for: Education and counseling Last Documented On 8 7:24AM ; [facility] Patient education about a pr oper diet Last Documented On 8 7:24AM ; [facility] Patient education about medi cation Last Documented On 8 7:24AM ; [facility] Self-management goals set fo r patient Last Documented On 8 7:24AM ; [facility] Medical Equipment - Implanted Devices Includes: Current Devices No Medical Equipment Recorded Medications Includes: Medications discussed during this encounter and other current Medications New / Renewed during this visit Sonia Stratton APRN on 05/10/2017 PredniSONE 10MG Oral Tablet Provider: Sonia Stratton APRN 6 day supply: 1 pack, 0 refills Diagnosis: Allergic urticaria Take as directed for 6 days. (taper pack) Pharmacy: [facility]/pharmacy #[id number] - [email or web address] , [place], [address] - Last Documented On 8 7:29AM By Sonia Stratton APRN ; [facility], [facility] Singulair 10MG Oral Tablet Provider: Wayne Stratton APRN 30 day supply: 30 tablet, 2 refills Diagnosis: Allergic urticaria take one tab daily Pharmacy: [facility]/pharmacy #[id number] - [address] , [place], [address] - Last Documented On 8 7:29AM By Sonia Stratton APRN ; [facility] Current Medications (continue as prescribed) Pravastatin Sodium 40 MG Oral Tablet 03/08/2020 Prov ider: Diagnosis: Last Documented On 1 10:48AM By Jolanta Blair ; [facility] Losartan Potassium 50 MG Oral Tablet 03/08/2020 Prov ider: Diagnosis: Last Documented On 1 10:47AM By Jolanta Blair ; [facility] Escitalopram Oxalate 10 MG Oral Tablet 03/08/2020 Pr ovider: Diagnosis: Last Documented On 1 10:48AM By Jolanta Blair ; [facility] Lexapro 10 MG Tablet 12/15/2015 Provider: Diagnosis: Last Documented On 7 9:24AM By Bonnie Aguirre ; [facility], [facility] Past Medications on file MetroNIDAZOLE 0.75% External Cream 03/20/2017 - 07/18/2017 Provider: Sonia Stratton APRN 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 BID PRN Last Documented On 8 2:03PM By Sonia Stratton APRN ; [facility], [facility] Medications Administered Includes: Administered Medications from [...] 98 Last Documented: On 05/10/2017 7:26AM ; [facility], [facility] Results Includes: Results discussed during this [...] 03/08/2020 Last Documented On 8 7:23AM ; [facility] Smoking status : Former smoker Last Documented On 8 7:23AM ; [facility] Alcohol use 03/21/2016 Last Documented On 8 7:23AM ; [facility] Caffeine use 03/21/2016 Last Documented On 8 7:23AM ; [facility] Procedures and Surgical History Includes: Procedures from this encounter Procedures Code Diagnosis Performing Provider Service L ocation Service Date education and instructions Last Documented On 8 7:24AM ; [facility] blood pressure measured 2000F Last Documented On 8 7:24AM ; [facility] use of tobacco assessment performed 1000F Last Documented On 8 7:24AM ; [facility] medication list documented 1159F Last Documented On 8 7:26AM ; [facility] review of medications documented 1160F Last Documented On 8 7:26AM ; [facility] body mass index documented 3008F Last Documented On 8 7:26AM ; [facility] PQRI-Most recent systolic BP < 130 mm Hg 3074F Last Documented On 8 1:49PM ; [facility] PQRI-Most recent diastolic BP < 80 mm Hg 3078F Last Documented On 8 1:49PM ; [facility] Clinical summary provided to patient Last Documented On 8 7:24AM ; [facility] Surgical History Last Updated History of hysterectomy 1984 03/21/2016 Last Documented On 8 7:23AM ; [facility] Medical History Includes: Medical History addressed during this encounter Description Last Updated History of arthritis 03/21/2016 Last Documented On 8 7:23AM ; [facility] History of diverticulosis of intestine 0 03/21/2016 Last Documented On 8 7:23AM ; [facility] Family History Includes: Family History addressed during this encounter Description Last Updated Family history of cancer 04/03/2016 Last Documented On 8 7:23AM ; [facility] Family history of due to suicide 0 04/03/2016 Last Documented On 8 7:23AM ; [facility] Family history of diabetes mellitus 03/06 Last Documented On 8 7:23AM ; [facility] Family history of hyperlipidemia 017 Last Documented On 8 7:23AM ; [facility] Family history of hypertension 7 Last Documented On 8 7:23AM ; [facility] Family history of osteoporosis 7 Last Documented On 8 7:23AM ; [facility] Fraternal history of due to suicid e 04/03/2016 Last Documented On 8 7:23AM ; [facility] Maternal history of hypertension 017 Last Documented On 8 7:23AM ; [facility] Maternal history of osteoporosis 017 Last Documented On 8 7:23AM ; [facility] Paternal history of family history of ca ncer 04/03/2016 Last Documented On 8 7:23AM ; [facility] Paternal history of hyperlipidemia 04/03 Last Documented On 8 7:23AM ; [facility] Son's history of diabetes mellitus 04/03 Last Documented On 8 7:23AM ; [facility] Review of Systems Includes: Review of [...] e Last Documented On 1 10:46AM ; [facility] Encounters Encounter Provider Location Date Check-In Time Check-Out Time Diagnosis Office Visit Sonia Stratton APRN [facility], [facility]. 05/11/19 18 7:30AM 7:34AM Allergic Urticaria Insurance Includes: Active Insurance Policies Plan Name Member ID Group # Subscriber Relationship Effect ajay Dates 1 - Medicare PPO [id number] Alem Posada Self Advance Directives Includes: Current Advance Directives Directive Pat Aware Third Green Party Effective Date Reviewed Sta tus Declined to provide Advanced Directive Yes 03/16/2020 Current a nd Verified Clinical Notes Includes: Clinical Notes from this encounter No Clinical Notes Recorded
--- OUTSIDE RECORDS SUMMARY | 2024-06-30 11:13 | XMS_ITS | Encounter Summary ---
Author Organization [facility] Address [address] [place] [address] Care Team Providers Care Gis Professor Name Role Phone Manuela Parr MD Primary Care Provider [phone] Eladia Haji PA-C Primary Care Provider Unavail able Keyana Wcik DO Primary Care Provider Unavaila Saima Reyes MD Primary Care Provider Tiny chavira Encounter Details Date Type Department Care Team Description 12/14/2021 [facility] Medical Records [address] [place] [address] Social History Tobacco Use Types Packs/Day Years [...] Name Priority Date/Time Associated Diagnosis Comments OUTSIDE PLAIN FILM Routine 12/15/2021 OUTSIDE EKG Routine 12/14/2021 documented in this encounter Results * OUTSIDE PLAIN FILM (12/15/2021) Provider Default RADIOLOGY * OUTSIDE EKG (12/14/2021) Provider Default CARDIOLOGY documented in this encounter Visit Diagnoses Not on filedocumented in this encounter Care Teams Gis Professor Relationship Specialty Start Date End Date Manuela Parr MD [address] [place] [address] PCP - General Internal Medicine 11/01/21 01/15/22 Eladia Haji PA-C [address] [place] [address] PCP - General Internal Medicine 01/16/22 05/30/22 Keyana Wick DO [address] [place] [address] PCP - General Internal Medicine 05/31/22 10/11/22 Saima Sandoval MD [address] [place] [address] PCP - General Internal Medicine 10/12/22 documented as of this encounter
--- OUTSIDE RECORDS SUMMARY | 2024-06-30 11:13 | XMS_ITS | Encounter Summary ---
Author Organization [facility] Address [address] [place] [address] Care Team Providers Care Elastic Yarn Twister Name Role Phone Saima Sandoval MD Primary [...] Date Type Department Care Team Description 08/06/2019 [place] [facility] [address] [phone] Saima Sandoval MD Social History Tobacco Use [...] on filedocumented in this encounter Care Teams Elastic Yarn Twister Relationship Specialty Start Date End Date Saima Sandoval MD PCP - General Internal Medicine 02/03/19 06/09/20 Evelyn Morales MD PCP - General Internal Medicine 06/10/20 09/11/20 Andry Love MD PCP - General Internal Medicine 09/12/2009/01 Fabio Watts MD [address] [place] [address] PCP - General Internal Medicine 09/14/21 10/31/21 Manuela Parr MD [address] [place] [address] PCP - General Internal Medicine 11/01/21 01/15/22 Eladia Haji PA-C [address] [place] [address] PCP - General Internal Medicine 01/16/22 05/30/22 Keyana Wick DO [address] [place], [place] PCP - General Internal Medicine 05/31/22 10/11/22 Saima Sandoval MD [address] [place], [place] PCP - General Internal Medicine 10/12/22 documented as of this encounter
--- OUTSIDE RECORDS SUMMARY | 2024-06-30 11:13 | XMS_ITS | Clinical Summary ---
Author Organization [facility] Address [address] [place] [phone] Phone Care Team Providers Care Hadoop Architect Name Role Phone Noel Tabares MD Unavailable Unavailable Reason for Visit and Chief Complaint Lab W/o Dr Problems Includes: Problems addressed during this encounter and other active Problems All Visits Onset Date Resolved Date Provider Condition S tatus Abdominal Pain--ruq 04/03/2016 Chantelle Coburn PA-C Active Last Documented On 7 9:37PM ; [facility] Abdominal Pain--rlq 03/22/2016 Chantelle Coburn PA-C Active Last Documented On 7 11:09AM ; [facility] Diarrhea 03/22/2016 Chantelle Coburn PA-C Active Last Documented On 7 11:09AM ; [facility] Hyperlipidemia Mixed 03/21/2016 Chantelle Coburn PA-C Active Last Documented On 7 11:13AM ; [facility] Plan of Treatment No Plan of Treatment Recorded Assessments Includes: Assessments from this encounter No Assessments Recorded Medical Equipment - Implanted Devices Includes: Current Devices No Medical Equipment Recorded Medications Includes: Medications discussed during this encounter and other current Medications Current Medications (continue as prescribed) Pravastatin Sodium 40 MG Oral Tablet 03/08/2020 Prov ider: Diagnosis: Last Documented On 1 10:48AM By Jolanta Bliar ; [facility] Losartan Potassium 50 MG Oral Tablet 03/08/2020 Prov ider: Diagnosis: Last Documented On 1 10:47AM By Jolanta Blair ; [facility] Escitalopram Oxalate 10 MG Oral Tablet 03/08/2020 Pr ovider: Diagnosis: Last Documented On 1 10:48AM By Jolanta Blair ; [facility] Lexapro 10 MG Tablet 12/15/2015 Provider: Diagnosis: Last Documented On 7 9:24AM By Bonnie Aguirre ; [facility] Medications Administered Includes: Administered Medications from [...] e Last Documented On 1 10:46AM ; [facility] Encounters Encounter Provider Location Date Check-In Time Check-Out Time Diagnosis [facility]:00[facility] 2:07PM Insurance Includes: Active Insurance Policies Plan Name Member ID Group # Subscriber Relationship Effect ajay Dates 1 - Blue Medicare PPO [id number] Alem Posada Self Advance Directives Includes: Current Advance Directives Directive Pat Aware Third Alliance Party Effective Date Reviewed Sta tus Declined to provide Advanced Directive Yes 03/16/2020 Current a nd Verified Clinical Notes Includes: Clinical Notes from this encounter No Clinical Notes Recorded
--- OUTSIDE RECORDS SUMMARY | 2024-06-30 11:13 | XMS_ITS | Encounter Summary ---
Author Organization [facility] Address [address] [place] [address] Care Team Providers Care Air Defense Specialist Name Role Phone Evelyn Morales MD Primary Care Provider Unavaila Andry Pino MD Primary Care Provider Unavailable Fabio Watts MD Primary Care Provider [phone] Manuela Parr MD Primary Care Provider [phone] Eladia Haji PA-C Primary Care Provider Unavail able Keyana Wick DO Primary Care Provider Unavaila ble Saima Sandoval MD Primary Care Provider Unavaila ble Reason for Visit * Reason Comments E-prescribe Rx Request Encounter Details Date Type Department Care Team Description 08/08/2020 Refill Medicine/Pediatrics - [address] [id number] Lenore Marinelli NP E-prescribe Rx Request Social [...] 08/08/2020 10:25 AM EDT Needs appointment Last [facility] 12/22 06/13- sick visit * Telephone Encounter - Aby Wyatt - 08/08/2020 8:50 AM EDT Patient would like script to be: E-PRESCRIBED/FAXED TO PHARMACY WHEN WAS THE PATIENT'S LAST APPOINTMENT IN ADULT MEDICINE? 06/13/2020 WHEN WAS THE LAST TIME THE PATIENT SAW THEIR PCP? Does patient have an upcoming appointment? No-unable to reach left [facility] to call for appointment due to refill [...] N/A Patients current insurance carrier is: [place] / Plan: [facility] MDCR-ADV PPO $25/$45 [place] / Product Type: MEDICARE [id number] documented in this encounter Plan of Treatment Not on file documented as of this encounter Visit Diagnoses Not on filedocumented in this encounter Care Teams Air Defense Specialist Relationship Specialty Start Date End Date Evelyn Morales MD PCP - General Internal Medicine 06/10/20 09/11/20 Andry Love MD PCP - General Internal Medicine 09/12/2009/01 Fabio Watts MD [address] [place] [address] PCP - General Internal Medicine 09/14/21 10/31/21 Manuela Parr MD [address] [place] [address] PCP - General Internal Medicine 11/01/21 01/15/22 Eladia Haji PA-C [address] [place], [place] PCP - General Internal Medicine 01/16/22 05/30/22 Keyana Wick DO [address] [place], [place] PCP - General Internal Medicine 05/31/22 10/11/22 Saima Sandoval MD [address] [place], [place] PCP - General Internal Medicine 10/12/22 documented as of this encounter
--- OUTSIDE RECORDS SUMMARY | 2024-06-30 11:13 | XMS_ITS | Encounter Summary ---
Author Organization [facility] Address [address] [place] [address] Care Team Providers Care Dining Car Steward Name Role Phone Manuela Parr MD Primary Care Provider [phone] Eladia Haji PA-C Primary Care Provider Unavail able Keyana Wick DO Primary Care Provider UnavailSaima Ospina MD Primary Care Provider Tiny chavira Encounter Details Date Type Department Care Team Description 12/18/2021 SCAN Medical Records [address] [place] [id number] Abstract, Provider Social History Tobacco Use Types [...] on filedocumented in this encounter Care Teams Dining Car Steward Relationship Specialty Start Date End Date Manuela Parr MD [address] [place] [id number] PCP - General Internal Medicine 11/01/21 01/15/22 Eladia Haji PA-C [address] [place], [place] PCP - General Internal Medicine 01/16/22 05/30/22 Keyana Wikc DO [address] [place] [address] PCP - General Internal Medicine 05/31/22 10/11/22 Saima Sandoval MD [address] [place] [address] PCP - General Internal Medicine 10/12/22 documented as of this encounter
--- OUTSIDE RECORDS SUMMARY | 2024-06-30 11:13 | XMS_ITS | Encounter Summary ---
Author Organization [facility] Address [address] [place] [address] Care Team Providers Care Meat Apprentice Name Role Phone Evelyn Morales MD Primary [...] Details Date Type Department Care Team Description 06/26/2018 Telephone Adult Medicine - [address] [address] Sofie Donnelly PA-C Social History Tobacco Use [...] Miscellaneous Notes * Telephone Encounter - Courtney Rosas M.A. - 06/27/2018 8:58 AM EDT Pt called and advised of message below. * Telephone Encounter - Parminder Flowers - 06/27/2018 8:47 AM EDT Pt returning call * Telephone Encounter - Courtney BandaJessicaKandisJessica - 06/26/2018 1:46 PM EDT Called pt left message to return call. * Telephone Encounter - Courtney BandaJessicaKandisJessica - 06/26/2018 1:46 PM EDT ----- Message from Sofie Donnelly PA-C sent at 06/26/2018 12:32 PM EDT ----- Regarding: Notification of Unviewed Test Results Contact: Resutls unviewed on my chart. Please let the patient know that her knee x ray was normal, thank you documented in this encounter Plan of Treatment Not on file documented as of this encounter Visit Diagnoses Not on filedocumented in this encounter Care Teams Meat Apprentice Relationship Specialty Start Date End Date Evelyn Morales MD PCP - General Internal Medicine 06/21/11 02/02/19 Saima Sandoval MD PCP - General Internal Medicine 02/03/19 06/09/20 Evelyn Morales MD PCP - General Internal Medicine 06/10/20 09/11/20 Andry Love MD PCP - General Internal Medicine 09/12/2009/01 Fabio Watts MD [address] [place] [address] PCP - General Internal Medicine 09/14/21 10/31/21 Manuela Parr MD [address] [place] [address] PCP - General Internal Medicine 11/01/21 01/15/22 Eladia Haji PA-C [address] [place] [address] PCP - General Internal Medicine 01/16/22 05/30/22 Keyana Wick DO [address] [place] [address] PCP - General Internal Medicine 05/31/22 10/11/22 Saima Sandoval MD [address] [place] [address] PCP - General Internal Medicine 10/12/22 documented as of this encounter
--- OUTSIDE RECORDS SUMMARY | 2024-06-30 11:13 | XMS_ITS | Encounter Summary ---
Author Organization [facility] Address [address] [place] [address] Care Team Providers Care Tip Length Checker Name Role Phone Evelyn Morales MD Primary [...] Date Type Department Care Team Description 08/14/2018 Hrbp Report Medical Records [address] [place] [address] Rehab., [place] Social History Tobacco Use Types [...] on filedocumented in this encounter Care Teams Tip Length Checker Relationship Specialty Start Date End Date Evelyn Morales MD PCP - General Internal Medicine 06/21/11 02/02/19 Saima Sandoval MD PCP - General Internal Medicine 02/03/19 06/09/20 Evelyn Morales MD PCP - General Internal Medicine 06/10/20 09/11/20 Andry Love MD PCP - General Internal Medicine 09/12/2009/01 Fabio Watts MD [address] [place] [address] PCP - General Internal Medicine 09/14/21 10/31/21 Manuela Parr MD [address] [place] [address] PCP - General Internal Medicine 11/01/21 01/15/22 Eladia Haji PA-C [address] [place], [place] PCP - General Internal Medicine 01/16/22 05/30/22 Keyana Wick DO [address] [place] [address] PCP - General Internal Medicine 05/31/22 10/11/22 Saima Sandoval MD [address] [place], [place] PCP - General Internal Medicine 10/12/22 documented as of this encounter
--- OUTSIDE RECORDS SUMMARY | 2024-06-30 11:13 | XMS_ITS | Clinical Summary ---
Author Organization [facility] Address [address] [place] [phone] Phone Care Team Providers Care Movement Assembler Name Role Phone Noel Tabares MD Unavailable [...] Active Last Documented On 7 11:09AM ; [facility] Past Visits Onset Date Resolved Date Provider Condition Status Abdominal Pain--ruq 04/03/2016 Chantelle Coburn PA-C Active Last Documented On 7 9:37PM ; [facility] Diarrhea 03/22/2016 Chantelle Coburn PA-C Active Last Documented On 7 11:09AM ; [facility] Hyperlipidemia Mixed 03/21/2016 Chantelle Coburn PA-C Active Last Documented On 7 11:13AM ; [facility] Plan of Treatment - Follow-up visit - Last Documented On 06/07/2017 7:02AM ; [facility] - Clinical summary provided to patient - Last Documented On 06/07/2017 7:02AM ; [facility] AP 1. Abd pain- get labs, CT as above. Addendum- CT abd/pelvis unremarakble on wet read, has low WBC to 2.9, with fatigue, fever to 102-103, will send to hematology for further workup. Pt is aware. - Last Documented On 06/07/2017 7:02AM ; [facility] Referrals To Diagnosis Hematology/Oncology Other decrea sed white blood cell count Note: refer to dharmesh mooney at [facility] cancer specialist within 1-2 wks. Pt has fever to 102, fatigue, low appetite wtih wbc to 2.9, low neutrophils. Last Documented On 8 5:06PM ; [facility] Instructions to patient Instructions for patient Last Documented On 8 1:40PM ; [facility] Education and Decision Aids were provided during visit for: Education and counseling Last Documented On 8 1:40PM ; [facility] Patient education about a pr oper diet Last Documented On 8 4:35PM ; [facility] Patient education about medi cation Last Documented On 8 1:49PM ; [facility] Self-management goals set fo r patient Last Documented On 8 1:49PM ; [facility] Assessments Includes: Assessments from this encounter Findings - Abdominal pain--RLQ [Right lower quadrant pain] - Last Documented On 06/07/2017 7:02AM ; [facility] - Leukopenia [Other decreased white blood cell count] - Last Documented On 06/07/2017 7:02AM ; [facility] Instructions Includes: Instructions from this encounter Instructions to patient Instructions for patient Last Documented On 8 1:40PM ; [facility] Education and Decision Aids were provided during visit for: Education and counseling Last Documented On 8 1:40PM ; [facility] Patient education about a pr oper diet Last Documented On 8 4:35PM ; [facility] Patient education about medi cation Last Documented On 8 1:49PM ; [facility] Self-management goals set fo r patient Last Documented On 8 1:49PM ; [facility] Medical Equipment - Implanted Devices Includes: Current Devices No Medical Equipment Recorded Medications Includes: Medications discussed during this encounter and other current Medications Current Medications (continue as prescribed) Pravastatin Sodium 40 MG Oral Tablet 03/08/2020 Prov ider: Diagnosis: Last Documented On 1 10:48AM By Jolanta Blair ; [facility] Losartan Potassium 50 MG Oral Tablet 03/08/2020 Prov ider: Diagnosis: Last Documented On 1 10:47AM By Jolanta Blair ; [facility] Escitalopram Oxalate 10 MG Oral Tablet 03/08/2020 Pr ovider: Diagnosis: Last Documented On 1 10:48AM By Jolanta Blair ; [facility] Lexapro 10 MG Tablet 12/15/2015 Provider: Diagnosis: Last Documented On 7 9:24AM By Bonnie Aguirre ; [facility] Past Medications on file PredniSONE 10MG Oral Tablet 05/10/2017 - 05/16/2017 Provider: Sonia Stratton APRN Diagnosis: Allergic urticar ia Take as directed for 6 days. (taper pack) Last Documented On 8 7:29AM By Sonia Stratton APRN ; [facility] Singulair 10MG Oral Tablet 05/10/2017 - 08/08/2017 Provider: Sonia Stratton APRN Diagnosis: Allergic urticar ia take one tab daily Last Documented On 8 7:29AM By Sonia Stratton APRN ; [facility] MetroNIDAZOLE 0.75% External Cream 03/20/2017 - 07/18/2017 Provider: Sonia Stratton APRN 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 BID PRN Last Documented On 8 2:03PM By Sonia Stratton APRN ; [facility] Medications Administered Includes: Administered Medications [...] 98 Last Documented: On 06/04/2017 1:40PM ; [facility] Results Includes: Results discussed during [...] 06/04/2017 Last Documented On 8 7:02AM ; [facility] Smoking status : Former smoker 8 Last Documented On 8 7:02AM ; [facility] Alcohol use 03/21/2016 Last Documented On 8 1:38PM ; [facility] Caffeine use 03/21/2016 Last Documented On 8 1:38PM ; [facility] Procedures and Surgical History Includes: Procedures from this encounter Procedures Code Diagnosis Performing Provider Service L ocation Service Date education and instructions Last Documented On 8 1:40PM ; [facility] blood pressure measured 2000F Last Documented On 8 1:49PM ; [facility] use of tobacco assessment performed 1000F Last Documented On 8 1:49PM ; [facility] medication list documented 1159F Last Documented On 8 1:40PM ; [facility] review of medications documented 1160F Last Documented On 8 1:40PM ; [facility] body mass index documented 3008F Last Documented On 8 1:40PM ; [facility] PQRI-Most recent systolic BP < 130 mm Hg 3074F Last Documented On 8 1:40PM ; [facility] PQRI-Most recent diastolic BP < 80 mm Hg 3078F Last Documented On 8 1:40PM ; [facility] Clinical summary provided to patient Last Documented On 8 1:40PM ; [facility] Surgical History Last Updated History of hysterectomy 1984 03/21/2016 Last Documented On 8 1:38PM ; [facility] Medical History Includes: Medical History addressed during this encounter Description Last Updated History of arthritis 03/21/2016 Last Documented On 8 1:38PM ; [facility] History of diverticulosis of intestine 0 03/21/2016 Last Documented On 8 1:38PM ; [facility] Family History Includes: Family History addressed during this encounter Description Last Updated Family history of cancer 04/03/2016 Last Documented On 8 1:38PM ; [facility] Family history of due to suicide 0 04/03/2016 Last Documented On 8 1:38PM ; [facility] Family history of diabetes mellitus 03/06 Last Documented On 8 1:38PM ; [facility] Family history of hyperlipidemia 017 Last Documented On 8 1:38PM ; [facility] Family history of hypertension 7 Last Documented On 8 1:38PM ; [facility] Family history of osteoporosis 7 Last Documented On 8 1:38PM ; [facility] Fraternal history of due to suicid e 04/03/2016 Last Documented On 8 1:38PM ; [facility] Maternal history of hypertension 017 Last Documented On 8 1:38PM ; [facility] Maternal history of osteoporosis 017 Last Documented On 8 1:38PM ; [facility] Paternal history of family history of ca ncer 04/03/2016 Last Documented On 8 1:38PM ; [facility] Paternal history of hyperlipidemia 04/03 Last Documented On 8 1:38PM ; [facility] Son's history of diabetes mellitus 04/03 Last Documented On 8 1:38PM ; [facility] Review of Systems Includes: Review [...] e Last Documented On 1 10:46AM ; [facility] Encounters Encounter Provider Location Date Check-In Time Check-Out Time Diagnosis Office Visit David Corbin DO [facility]. 06/05/19 18 1:36PM 5:41PM Abdominal Pain--rlq,Haley kopenia Insurance Includes: Active Insurance Policies Plan Name Member ID Group # Subscriber Relationship Effect ajay Dates 1 - Blue Medicare PPO [id number] Alem Posada Self Advance Directives Includes: Current Advance Directives Directive Pat Aware Third Green Party Effective Date Reviewed Sta tus Declined to provide Advanced Directive Yes 03/16/2020 Current a nd Verified Clinical Notes Includes: Clinical Notes from this encounter No Clinical Notes Recorded
--- OUTSIDE RECORDS SUMMARY | 2024-06-30 11:13 | XMS_ITS | Encounter Summary ---
Author Organization [facility] Address [address] [place] [address] Care Team Providers Care Central Office Installer Name Role Phone Evelyn Morales MD Primary [...] Description 12/21/2015 Release of Information Medical Records [address] [place] [id number] Abstract, Provider Social History Tobacco Use Types [...] on filedocumented in this encounter Care Teams Central Office Installer Relationship Specialty Start Date End Date Evelyn Morales MD PCP - General Internal Medicine 06/21/11 02/02/19 Saima Sandoval MD PCP - General Internal Medicine 02/03/19 06/09/20 Evelyn Morales MD PCP - General Internal Medicine 06/10/20 09/11/20 Andry Love MD PCP - General Internal Medicine 09/12/2009/01 Fabio Watts MD [address] [place] [address] PCP - General Internal Medicine 09/14/21 10/31/21 Manuela Parr MD [address] [place], [place] PCP - General Internal Medicine 11/01/21 01/15/22 Eladia Haji PA-C [address] [place], [place] PCP - General Internal Medicine 01/16/22 05/30/22 Keyana Wick DO [address] [place], [place] PCP - General Internal Medicine 05/31/22 10/11/22 Saima Sandoval MD [address] [place], [place] PCP - General Internal Medicine 10/12/22 documented as of this encounter
--- OUTSIDE RECORDS SUMMARY | 2024-06-30 11:13 | XMS_ITS | Encounter Summary ---
Author Organization [facility] Address [address] [place] [address] Care Team Providers Care Heel Molder Name Role Phone Evelyn Morales MD Primary Care Provider Unavaila ble Andry Love MD Primary Care Provider Unavailable Fabio Watts MD Primary Care Provider Manuela Parr MD Primary Care Provider [phone] Eladia Haji PA-C Primary Care Provider Unavail able Keyana Wick DO Primary Care Provider Unavaila ble Saima Sandoval MD Primary Care Provider Unavaila ble Reason for Visit * Reason Onset Date Comments Special Procedure 06/10/2020 Encounter Details Date Type Department Care Team Description 06/10/2020 Telephone Gastroenterology - [place] [address] [facility] [address] [place] [id number] Jorje Issa MD [address] [facility] [address] [place] [address] Special Procedure Social History Tobacco Use Types [...] on filedocumented in this encounter Care Teams Heel Molder Relationship Specialty Start Date End Date Evelyn Morales MD PCP - General Internal Medicine 06/10/20 09/11/20 Andry Love MD PCP - General Internal Medicine 09/12/2009/01 Fabio Watts MD [address] [place] [address] PCP - General Internal Medicine 09/14/21 10/31/21 Manuela Parr MD [address] [place] [address] PCP - General Internal Medicine 11/01/21 01/15/22 Eladia Haji PA-C [address] [place], [place] PCP - General Internal Medicine 01/16/22 05/30/22 Keyana Wick DO [address] [place], [place] PCP - General Internal Medicine 05/31/22 10/11/22 Saima Sandoval MD [address] [place], [place] PCP - General Internal Medicine 10/12/22 documented as of this encounter
--- OUTSIDE RECORDS SUMMARY | 2024-06-30 11:13 | XMS_ITS | Encounter Summary ---
Author Organization [facility] Address [address] [place] [id number] Care Team Providers Care Publicity Director Name Role Phone Evelyn Morales MD Primary Care Provider Unavaila Saima Reyes MD Primary Care Provider Unavaila Evelyn Norris MD Primary Care Provider Unavaila Andry Pino MD Primary Care Provider Unavailable Fabio Watts MD Primary Care Provider [phone] Manuela Parr MD Primary Care Provider [phone] Eladia Haji PA-C Primary Care Provider Unavail able Keyana Wick DO Primary Care Provider Unavaila Saima Reyes MD Primary Care Provider Unavaila cait Encounter Details Date Type Department Care Team Description 09/22/2013 Refuse Collector Report Medical Records [address] [place] [address] Lance Sutton MD Social History Tobacco Use [...] on filedocumented in this encounter Care Teams Publicity Director Relationship Specialty Start Date End Date Evelyn Morales MD PCP - General Internal Medicine 06/21/11 02/02/19 Saima Sandoval MD PCP - General Internal Medicine 02/03/19 06/09/20 Evelyn Morales MD PCP - General Internal Medicine 06/10/20 09/11/20 Andry Love MD PCP - General Internal Medicine 09/12/2009/01 Fabio Watts MD [address] [place] [address] PCP - General Internal Medicine 09/14/21 10/31/21 Manuela Parr MD [address] [place] [address] PCP - General Internal Medicine 11/01/21 01/15/22 Eladia Haji PA-C [address] [place], [place] PCP - General Internal Medicine 01/16/22 05/30/22 Keyana Wick DO [address] [place] [address] PCP - General Internal Medicine 05/31/22 10/11/22 Saima Sandoval MD [address] [place], [place] PCP - General Internal Medicine 10/12/22 documented as of this encounter
--- OUTSIDE RECORDS SUMMARY | 2024-06-30 11:13 | XMS_ITS | Encounter Summary ---
Author Organization [facility] Address [address] [place] [address] Care Team Providers Care Systems Coordinator Name Role Phone Evelyn Morales MD Primary Care Provider Unavaila Saima Reyes MD Primary Care Provider Unavaila Evelyn Norris MD Primary Care Provider Unavaila ble Andry Love MD Primary Care Provider Unavailable Fabio Watts MD Primary Care Provider [phone] Manuela Parr MD Primary Care Provider [phone] Eladia Haji PA-C Primary Care Provider Unavail able Keyana Wick DO Primary Care Provider Unavaila Saima Reyes MD Primary Care Provider Unavaila ble Reason for Visit * Reason Comments E-prescribe Rx Request Encounter Details Date Type Department Care Team Description 09/08/2018 Refill Adult Medicine - [place] [address] [place] [address] Sofie Donnelly PA-C E-prescribe Rx Request Social [...] PPO $25/$45 [place] / Product Type: MEDICARE [id number] documented in this encounter Plan of Treatment Not on file documented as of this encounter Visit Diagnoses Not on filedocumented in this encounter Care Teams Systems Coordinator Relationship Specialty Start Date End Date Evelyn Morales MD PCP - General Internal Medicine 06/21/11 02/02/19 Saima Sandoval MD PCP - General Internal Medicine 02/03/19 06/09/20 Evelyn Morales MD PCP - General Internal Medicine 06/10/20 09/11/20 Andry Love MD PCP - General Internal Medicine 09/12/2009/01 Fabio Watts MD [address] [place] [address] PCP - General Internal Medicine 09/14/21 10/31/21 Manuela Parr MD [address] [place] [address] PCP - General Internal Medicine 11/01/21 01/15/22 Eladia Haji PA-C [address] [place] [address] PCP - General Internal Medicine 01/16/22 05/30/22 Keyana Wick DO [address] [place] [address] PCP - General Internal Medicine 05/31/22 10/11/22 Saima Sandoval MD [address] [place] [address] PCP - General Internal Medicine 10/12/22 documented as of this encounter
--- OUTSIDE RECORDS SUMMARY | 2024-06-30 11:13 | XMS_ITS | Encounter Summary ---
Author Organization [facility] Address [address] [place] [address] Care Team Providers Care Purchasing Specialist Name Role Phone Evelyn Morales MD Primary Care Provider Unavaila ble Andry Love MD Primary Care Provider Unavailable Fabio Watts MD Primary Care Provider Manuela Parr MD Primary Care Provider [phone] Eladia Haji PA-C Primary Care Provider Unavail able Keyana Wick DO Primary Care Provider Unavaila ble Saima Sandoval MD Primary Care Provider Unavaila ble Reason for Visit * Reason Onset Date Comments Orders Call 08/16/2020 Encounter Details Date Type Department Care Team Description 08/16/2020 Telephone Adult Medicine - [address] [address] Evelyn Morales MD Orders Call Social History [...] breast. Patient reports she was going to [place] so she was given a copy of the mammogram to have the biopsy done there. She returns stating that she requested biopsy but the providers in [place] repeated her mammogram in [place] in April and advised her a biopsy [...] Evelyn Morales MD MAMMOGRAPHY Performing Organization Address City/State/[facility] Co mt Phone Number [place] OTHER EXTERNAL documented in this encounter Visit Diagnoses Diagnosis Calcification of right breast on mammography- Primary Calcification of right breast on mammography documented in this encounter Care Teams Purchasing Specialist Relationship Specialty Start Date End Date Evelyn Morales MD PCP - General Internal Medicine 06/10/20 09/11/20 Andry Love MD PCP - General Internal Medicine 09/12/2009/01 Fabio Watts MD [address] [place] [address] PCP - General Internal Medicine 09/14/21 10/31/21 Manuela Parr MD [address] [place] [address] PCP - General Internal Medicine 11/01/21 01/15/22 Eladia Haji PA-C [address] [place] [address] PCP - General Internal Medicine 01/16/22 05/30/22 Keyana Wick DO [address] [place] [address] PCP - General Internal Medicine 05/31/22 10/11/22 Saima Sandvoal MD [address] [place] [address] PCP - General Internal Medicine 10/12/22 documented as of this encounter
--- OUTSIDE RECORDS SUMMARY | 2024-06-30 11:13 | XMS_ITS ---
Care Plan - [facility] Created on: June 30, 2024 Albino Alem Stacy : 1940 Sex: Female Author Organization [facility] Address [address] [place] [phone] Phone Care Team Providers Care Social Worker Palliative Care Name Role Phone Rayshawn LESLIE, Noel Ag Unavailable
--- OUTSIDE RECORDS SUMMARY | 2024-06-30 11:13 | XMS_ITS | Clinical Summary ---
Author Organization [facility] Address [address] [place] [phone] Phone Care Team Providers Care Plugger Name Role Phone Noel Tabares MD Unavailable Unavailable Reason for Visit and Chief Complaint CT: Abd & Pelvis w/ IV and Oral Contrast Problems Includes: Problems addressed during this encounter and other active Problems All Visits Onset Date Resolved Date Provider Condition S tatus Abdominal Pain--ruq 04/03/2016 Chantelle Coburn PA-C Active Last Documented On 7 9:37PM ; [facility] Abdominal Pain--rlq 03/22/2016 Chantelle Coburn PA-C Active Last Documented On 7 11:09AM ; [facility] Diarrhea 03/22/2016 Chantelle Coburn PA-C Active Last Documented On 7 11:09AM ; [facility] Hyperlipidemia Mixed 03/21/2016 Chantelle Coburn PA-C Active Last Documented On 7 11:13AM ; [facility] Plan of Treatment No [...] On 1 10:48AM By Jolanta Blair ; [facility] Losartan Potassium 50 MG Oral Tablet 03/08/2020 Prov ider: Diagnosis: Last Documented On 1 10:47AM By Jolanta Blair ; [facility] Escitalopram Oxalate 10 MG Oral Tablet 03/08/2020 Pr ovider: Diagnosis: Last Documented On 1 10:48AM By Jolanta Blair ; [facility] Lexapro 10 MG Tablet 12/15/2015 Provider: Diagnosis: Last Documented On 7 9:24AM By Bonnie Aguirre ; [facility] Medications Administered Includes: Administered Medications [...] e Last Documented On 1 10:46AM ; [facility] Encounters Encounter Provider Location Date Check-In Time Check-Out Time Diagnosis CT: Abd & Pelvis w/ IV and Oral Contrast [facility] 06/04/2017 4:30PM 4:43PM Insurance Includes: Active Insurance Policies Plan Name Member ID Group # Subscriber Relationship Effect ajay Dates 1 - Blue Medicare PPO [id number] Alem Posada Self Advance Directives Includes: Current Advance Directives Directive Pat Aware Third Libertarian Effective Date Reviewed Sta tus Declined to provide Advanced Directive Yes 03/16/2020 Current a nd Verified Clinical Notes Includes: Clinical Notes from this encounter No Clinical Notes Recorded
--- OUTSIDE RECORDS SUMMARY | 2024-06-30 11:13 | XMS_ITS | Encounter Summary ---
Author Organization [facility] Address [address] [place] [address] Care Team Providers Care Structural Design Engineer Name Role Phone Andry Love MD Primary Care Provider Unavailable Fabio Watts MD Primary Care Provider Manuela Parr MD Primary Care Provider [phone] Eladia Haji PA-C Primary Care Provider Unavail able Keyana Wick DO Primary Care Provider Unavaila ble Saima Sandoval MD Primary Care Provider Unavaila ble Reason for Visit * Reason Comments E-prescribe Rx Request Encounter Details Date Type Department Care Team Description 11/06/2020 Refill Medicine/Pediatrics - [address] [id number] Evelyn Morales MD E-prescribe Rx Request Social [...] N/A Patients current insurance carrier is: Payor: [facility]/MEDICARE PPO / Plan: [facility] MDCR-ADV PPO $25/$45 [place] / Product Type: MEDICARE [id number] documented in this encounter Plan of Treatment Not on file documented as of this encounter Visit Diagnoses Not on filedocumented in this encounter Care Teams Structural Design Engineer Relationship Specialty Start Date End Date Andry Love MD PCP - General Internal Medicine 09/12/2009/01 Fabio Watts MD [address] [place] [address] PCP - General Internal Medicine 09/14/21 10/31/21 Manulea Parr MD [address] [place] [address] PCP - General Internal Medicine 11/01/21 01/15/22 Eladia Haji PA-C [address] [place] [address] PCP - General Internal Medicine 01/16/22 05/30/22 Keyana Wick DO [address] [place] [address] PCP - General Internal Medicine 05/31/22 10/11/22 Saima Sandoval MD [address] [place] [address] PCP - General Internal Medicine 10/12/22 documented as of this encounter
--- OUTSIDE RECORDS SUMMARY | 2024-06-30 11:13 | XMS_ITS | Encounter Summary ---
Author Organization [facility] Address [address] [place] [address] Care Team Providers Care Plow And Boring Machine Tender Name Role Phone Andry Love MD Primary Care Provider Unavailable Fabio Watts MD Primary Care Provider Manuela Parr MD Primary Care Provider [phone] Eladia Haji PA-C Primary Care Provider Unavail able Keyana Wick DO Primary Care Provider Unavaila Saima Reyes MD Primary Care Provider Unavailkandis chavira Encounter Details Date Type Department Care Team Description 01/07/2021 Refill Adult Medicine - [place] [address] [place] [address] Evelyn Morales MD Social History Tobacco Use [...] on filedocumented in this encounter Care Teams Plow And Boring Machine Tender Relationship Specialty Start Date End Date Andry Love MD PCP - General Internal Medicine 09/12/2009/01 Fabio Watts MD [address] [place] [address] PCP - General Internal Medicine 09/14/21 10/31/21 Manuela Parr MD [address] [place] [address] PCP - General Internal Medicine 11/01/21 01/15/22 Eladia Haji PA-C [address] [place], [place] PCP - General Internal Medicine 01/16/22 05/30/22 Keyana Wick DO [address] [place], [place] PCP - General Internal Medicine 05/31/22 10/11/22 Saima Sandoval MD [address] [place], [place] PCP - General Internal Medicine 10/12/22 documented as of this encounter
== END ==
LOC: HO.CARD 09:54
PROVIDERS: PCP Physician Assistant; Visit Provider Physician Assistant
DX: R07.9 Chest pain, unspecified (principal); R06.09 Other forms of dyspnea; R78.2 Finding of cocaine in blood; I10 Essential (primary) hypertension
CPT/HCPCS: 93306

== ENCOUNTER → 2024-06-30 09:57 | Outpatient (BNV) | payer BC, SELFPAY | PROVIDERS: PCP Physician Assistant; Visit Provider Internal Medicine | DX: I34.0 Nonrheumatic mitral (valve) insufficiency (principal); I36.1 Nonrheumatic tricuspid (valve) insufficiency | CPT/HCPCS: 93306 ==

== ENCOUNTER → 2024-08-07 09:12 | Outpatient (REF) | payer BC, SELFPAY ==
--- NOTE | ~2024-08-07 | NM_ITS ---
EXERCISE MYOCARDIAL PERFUSION STUDY INDICATION: Chest pain to evaluate for myocardial ischemia TECHNIQUE: The patient was brought in for an exercise perfusion study on August 07, 2024. Patient performed exercise as per Javier protocol and was injected 25 mCi of sestamibi once target heart rate was achieved. Images were obtained using the SPECT gamma camera interlaced with the gating device. Images were obtained in supine position. Resting perfusion study was performed on August 10, 2024. Patient was administered 25 mCi of sestamibi intravenously at rest. Images were then obtained in supine position. Images obtained without without CT attenuation. Total DLP 68 mGy-cm. Images were processed with the software and compared side to side in short axis, horizontal long axis and vertical long axis views. FINDINGS: Raw images were reviewed The stress perfusion study showed nonattenuated images are suboptimal but mildly reduced uptake in the apex as well as mildly uptake in the distal inferolateral wall of the LV myocardium. Attenuated corrected images show mildly to moderately reduced uptake in the distal anterior and apical wall of the LV myocardium.. The gated study shows normal LV systolic function with calculated LVEF of 73%. LV cavity is normal in size. The gated study shows normal systolic wall thickening and contraction of segments. Resting study shows nonattenuated images are suboptimal. Attenuated corrected images show improved uptake in the distal anterior and apical wall of the LV myocardium.. Gating at rest reveals normal systolic wall motion with ejection fraction at 66%. The findings are consistent with [mild intensity distal anterior and apical reversible defect suggestive of ischemia.. NM/NM cardiolite stress test IMPRESSION: 1. Myocardial perfusion imaging study shows small area of mild intensity ischemia in the distal LAD territory. 2. Gated LVEF is 73%. 3. Transient ischemic dilatation not present. EKG revealed positive for ischemia. Electronically signed by: Rene Bassett MD 08/10/2024 03:58 PM EDT
--- NOTE | 2024-08-07 09:19 | CA_ITS ---
Acquisition Time: 2024-08-07 09:56:51 Total Exercise Time: 00:06:00 Test Indications: CP,Dyspnea Medications: SEE H&P Protocol: SOLANGE Max HR: 133 BPM 97% of Pred: 137 BPM Max BP: 140/80 mmHG Max Work Load: 7.0 METS Exercise stress test with exercise 6 mins of Solange Protocol, achieving 94% MPHR, without any anginal symptoms, without any arrythmias, with normotensive response to exercise. With downsloping ST inferiorly and in leads V4-V6 meeting criteria for ischemia. In recovery, ST segment quickly improved. Nuclear images pending. Test reviewed with dr. Hedrick. Referred By: Eladia Haji Electronically Signed By: Kyler Gates
== END ==
LOC: HO.CARD 09:12
PROVIDERS: PCP Physician Assistant; Visit Provider Physician Assistant
DX: R07.9 Chest pain, unspecified (principal); R06.09 Other forms of dyspnea; I10 Essential (primary) hypertension; E78.2 Mixed hyperlipidemia
CPT/HCPCS: 78452; 93017; A9500

== ENCOUNTER → 2024-08-07 09:19 | Outpatient (BNV) | payer BC, SELFPAY | PROVIDERS: PCP Physician Assistant | DX: R07.9 Chest pain, unspecified (principal); R94.31 Abnormal electrocardiogram [ECG] [EKG] | CPT/HCPCS: 78452; 93016; 93018 ==

== ENCOUNTER 2024-08-26 13:14 | Outpatient (AMB) | payer BC, SELFPAY ==
--- NOTE | 2024-08-26 13:18 | A.OFFVIS_ITS ---
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/ Knsi Haji/ abn stress test/cp Allergies No Known Allergies Allergy (Verified 06/03/24 10:12) Medication List - Last Reconciled 08/26/24 by Gurdeep Hedrick MD albuterol sulfate 90 mcg/actuation 2 puffs inhalation Q6H PRN amitriptyline 10 mg PO BEDTIME PRN amlodipine 5 mg PO DAILY aspirin (Adult Aspirin Regimen) 81 mg PO DAILY cetirizine (Zyrtec) 10 mg PO DAILY PRN donepezil 10 mg PO DAILY memantine mg PO metoprolol succinate ER (Toprol XL) 25 mg PO DAILY nitroglycerin 0.4 mg sublingual Q5M PRN rosuvastatin 5 mg PO DAILY HPI Comments Details: The patient is an 84-year-old female presenting with chest pain. Chest pain has been intermittent for six months, triggered by activity like stair climbing. Pain is left-sided and not consistently activity-related. No history of myocardial infarction, stents, pacemaker, or cardiac surgeries. On antihypertensive and cholesterol medications. Treadmill test was negative for pain, but imaging was abnormal. She is here for further evaluation. She also has some memory issues but nothing major or progressive per family. Daughter was here for the appointment and son was also listening in through phone. [facility] Medical History (Updated 08/10/24 @ 08:32 by KATLYN Gonzalez) Abnormal stress test Memory changes Vision changes IBS (irritable bowel syndrome) Incontinence High cholesterol HTN (hypertension) Surgical History H/O: hysterectomy Family History Maternal Grandfather FH: mental illness Mother High blood pressure High cholesterol Father High blood pressure High cholesterol Social History (Updated 03/05/24 @ 13:23 by Cha Gifford CMA) Housing: House Alcohol intake: current Patient Tobacco Use Status: Former Tobacco user (quit at 26 years old) Cigarette Packs Per Day: 0.5 Years Smoked: 10 e-Cigarette/Vaping Use: Never Used Second Hand Smoke Exposure: No service: No Current occupational status: retired Current occupational exposures/hazards: No Cognitive needs: No Hearing needs: No Vision needs: No Review of Systems Const Denies weakness ENT Denies dizziness Card Reports chest pain, Reports chest pain at rest, Reports chest pain with activity, Denies syncope, Denies rapid heart rate, Denies pedal edema, Denies edema, Denies leg edema, Denies lightheadedness, Denies palpitations, Denies dyspnea, Denies dyspnea on exertion and Denies orthopnea Resp Denies cough, Denies dyspnea and Denies dyspnea on exertion GI Denies hematochezia and Denies change in stool character Musc Denies abnormal gait, Denies muscle cramps, Denies muscle weakness, Denies numbness, Denies radiating pain into limb and Denies tingling Neuro Denies abnormal gait, Denies dizziness, Denies syncope, Denies numbness, Denies tingling and Denies weakness Endo Denies palpitations Physical Exam Vital Signs: Last Vital Signs Pulse 68 08/26/24 13:25 BP 140/78 H 08/26/24 13:25 BMI result Body Mass Index 23.8 Const General: comfortable and no acute distress Orientation/consciousness: patient oriented x3 HEENT Other: Unremarkable Head: Yes normal to inspection Neck Neck: Yes normal visual inspection Chest Chest palpation & inspection: normal inspection of the chest Resp Auscultation: clear to auscultation bilaterally Cardio Palpation: normal PMI Heart sounds: S1 normal heart sound present, S2 normal heart sound present, no gallops, no murmurs and no rubs GI Palpation (GI): Soft to palpation Back/Spine/Pelvis Other: unremarkable Skin General skin exam: no rashes or lesions noted Neuro General: patient oriented x3 Extrem General: Yes normal to inspection Psych Mental Status: mental status grossly normal Office Procedures EKG Details: EKG with underlying sinus rhythm at 68/Min; no clear ischemic changes; [place] [address]-[id number], Complete Assessment & Plan Assessment & Plan (1) Chest pain: Code(s): R07.9 - Chest pain, unspecified Category: Medical (2) Abnormal stress test: Code(s): R94.39 - Abnormal result of other cardiovascular function study Category: Medical (3) HTN (hypertension): Code(s): I10 - Essential (primary) hypertension Category: Medical Qualifiers: Hypertension type: primary hypertension Qualified Code(s): I10 - Es sential (primary) hypertension (4) Hyperlipidemia: Code(s): E78.5 - Hyperlipidemia, unspecified Category: Medical Qualifiers: Hyperlipidemia type: mixed hyperlipidemia Qualified Code(s): E78.2 - Mixed hyperlipidemia Plan In the echocardiogram, LVEF is 60%. Basal inferior/inferolateral hypokinesis. No significant valvular findings. In the stress test, she was able to do 7 METS on Javier protocol but did not have any angina. Positive EKG changes. In the perfusion imaging, small area of mild intensity ischemia in distal LAD territory. Findings discussed with patient as well as her daughter and son. We discussed about doing a diagnostic angiogram further assessment. We also discussed about empiric medical therapy. After a long discussion, they decided that they would like to try medical therapy for now and if she still gets chest pains, then proceed with diagnostic catheterization. If any persistent chest pain that does not resolve, advised to seek immediate medical attention. Otherwise, start metoprolol. Sublingual nitroglycerin as necessary. Continue her amlodipine and statins. We will follow up in 6 weeks' time. Discussion Notes I discussed with the patient that her chest pain could be due to coronary artery blockages and explained the option of an angiogram for definitive diagnosis. We talked about starting metoprolol and nitroglycerin to manage symptoms and the importance of monitoring for persistent pain. I advised her to continue baby aspirin and to use nitroglycerin before activities that might trigger pain. We planned a follow-up to assess the effectiveness of the treatment and to decide on further steps as necessary. Patient was informed and verbally consented to the use of an ambient scribe for clinic note documentation during this visit. Medications: New metoprolol succinate ER (Toprol XL) 25 mg PO DAILY 90 tabs 1RF Gurdeep Hedrick MD nitroglycerin do not exceed 3 doses per episode 0.4 mg sublingual Q5M PRN 30 tabs 5RF chest pain Gurdeep Hedrick MD R07.2 - Precordial pain Changed From amitriptyline 10 mg PO BEDTIME 90 tabs 3RF To amitriptyline 10 mg PO BEDTIME PRN Saima Jensen MD Patient Instructions: - Take metoprolol daily as prescribed. - Use nitroglycerin as necessary for chest pain. - Continue taking baby aspirin daily. - Monitor for chest pain that does not go away with rest and seek immediate medical attention if it occurs. - Follow up in a few weeks to evaluate treatment effectiveness. Coding Level of Care Code New Pt Level 4 (46167) Complex EM visit Add On G2211 Diagnoses Chest pain R07.9 Abnormal stress test R94.39 Primary hypertension I10 Hypertension type: primary hypertension Mixed hyperlipidemia E78.2 Hyperlipidemia type: mixed hyperlipidemia CPT Codes EKG - CPT: 15480-[id number], Complete ([id number])
[2024-08-26 13:25] VITALS: BP 140/78; PULSE 68; BMI 23.8
== END 2024-08-26 13:53 | disposition home or self-care (01) ==
LOC: HO.HCS 13:15
PROVIDERS: PCP Physician Assistant; Visit Provider Internal Medicine
DX: R07.9 Chest pain, unspecified (principal); R94.39 Abnormal result of other cardiovascular function study; I10 Essential (primary) hypertension; E78.2 Mixed hyperlipidemia
CPT/HCPCS: 93010; 99204

== ENCOUNTER → 2024-08-26 13:14 | Outpatient (BNVA) | payer BC, SELFPAY | PROVIDERS: PCP Physician Assistant; Visit Provider Internal Medicine | DX: R94.39 Abnormal result of other cardiovascular function study (principal); R07.9 Chest pain, unspecified; I10 Essential (primary) hypertension; E78.2 Mixed hyperlipidemia | CPT/HCPCS: 93005 ==

== ENCOUNTER 2024-10-05 09:52 | Outpatient (REF) | payer BC, SELFPAY ==
--- OUTSIDE RECORDS SUMMARY | 2024-10-05 10:32 | XMS_ITS | Clinical Summary ---
Author Organization [facility] Address [address] [place] [address] Phone Care Team Providers Care Termite Exterminator Helper Name Role Phone Eladia Haji Primary Care Provider +1- [phone] Allergies No known active allergies Medications amLODIPine (NORVASC) 5 MG tablet Take 5 mg by mouth daily. Active escitalopram oxalate (LEXAPRO) 10 MG tablet Take 10 mg by mouth daily. Active losartan (COZAAR) 100 MG tablet Take 100 mg by mouth daily. Active rosuvastatin (CRESTOR) 5 MG tablet Take 5 mg by mouth daily. Active FA/mv,Ca,iron,m in/lycopene/lut (MULTIVITAL ORAL) Take by mouth. Active traZODone (DESYREL) 50 MG tablet Take 50 mg by mouth nightly at bedtime. Active acetaminophen (TYLENOL) 325 mg tablet Take 650 mg by mouth as needed. Active memantine (NAMENDA XR) 14 mg 24 hr sprinkle capsuleIndicati ons:Mixed dementia Take 1 capsule (14 mg total) by mouth daily. 90 capsule 1 5 Active memantine (NAMENDA XR) 7 mg 24 hr sprinkle capsuleIndicati ons:Mixed dementia Take 1 capsule (7 mg total) by mouth daily. 30 capsule 5 4 09/26/19 25 Discontinu ed(No longer taking) Encounters Date Type Department Care Team Description 09/25/2024 10:30 AM EDT Office Visit [facility] Neurology [address] [place] [address] Tima Salazar MD Mixed dementia (Primary Dx) 08/25/2024 Refill [facility] Neurology [address] [place] [address] Tima Salazar MD Medication Refill from Last 3 Months Social History Tobacco Use Types Packs/Day Years Used Date Smoking Tobacco: Never Assessed Education Answer Date Recorded Are you interested in more education? Not on wilda e 11/25/2023 Are you concerned about learning? Not on file 11/25/2023 No 11/25/2023 No 11/25/2023 Digital Access Answer Date Recorded No 11/25/2023 No 11/25/2023 Reliable internet access at home? Not on file 11/25/2023 Device with a working camera? Not on file Comments Unknown Sex and Gender Information Value Date Recorded Sex Assigned at Female 11/11/2023 1:36 PM EDT Legal Sex Female 1:33 PM EDT Gender Identity Female 11/11/2023 1:36 PM EDT Sexual Orientation Straight 11/11/2023 1: 36 PM EDT Last Filed Vital Signs Vital Sign Reading Time Taken Comments Blood Pressure - - Pulse - - Temperature - - Respiratory Rate - - Oxygen Saturation - - Inhaled Oxygen Concentration - - Weight 68.2 kg (150 lb 6.4 oz) 02/27/2024 9:32 A M EST Height 170.2 cm (5' 7 ) 02/27/2024 9:32 AM EST Body Mass Index 23.56 02/27/2024 9:32 AM EST Plan of Treatment Upcoming Encounters Date Type Department Care Team (Late st Contact Info) Description 07/01/2025 10:30 AM EDT Office Visit [facility] Neurology [address] [place] [address] Tima Salazar MD [address] [place] [address], [address] [place] [address] Health Maintenance Due Date Last Done Comments CREATININE LEVEL 1941 POTASSIUM LEVEL 1941 DEPRESSION SCREENING 1953 PNEUMOCOCCAL VACCINES (50+ y ears) (1 of 1 - PCV) 07/14/1991 ZOSTER VACCINES (1 of 2) 07/14/1991 OSTEOPOROSIS SCREENING INITI AL (ONE-TIME) 2006 RSV VACCINE (1 - 1-dose 75+ series) 2016 Adult Td,Tdap Booster 02/17/2023 02/17/2013 COVID-19 VACCINE ( - 2023-2 5 season) 2023 HEPATITIS A VACCINES Aged Out No long er eligible based on patient's age to complete this topic HIB VACCINES Aged Out No longer eligi ble based on patient's age to complete this topic MENINGOCOCCAL VACCINES (ACWY) Aged Out No longer eligible based on patient's age to complete this topic MENINGOCOCCAL VACCINES (B) Aged Out N o longer eligible based on patient's age to complete this topic Medical Devices Not on file Insurance MEDICARE PPO BLUE REPLACEMENT MEDICARE PPO BLUE REPLACEMENT MEDICARE PPO BLUE REPLAC[place] BLUE REPLAC[place] Care Teams Termite Exterminator Helper Relationship Specialty Start Date End Date Eladia Haji PA [address] [address] PCP - General Physician Undercutter Operator 11/11/23 Additional Source Comments The information contained in this document represents components of the legal health record. It is not the complete legal health record.[facility]
[2024-10-05 10:51] LABS: Hematocrit 38.1 % (37.0-47.0); Hemoglobin 12.5 g/dl (12.0-16.0); Mean Corpuscular HGB Conc 32.8 g/dl (31.0-35.0); Mean Corpuscular Hemoglobin 30.0 pg (27.0-33.0); Mean Corpuscular Volume 91.6 fL (80.0-98.0); NRBC Abs Auto 0.000 X10*3/uL (0.0-0.012); NRBC Pct Auto 0.0 /100WBC (0.0-0.2); Platelet Count 270 X10*3/uL (160-400); Red Blood Count 4.16 X10*6/uL (4.20-5.50); White Blood Count 6.8 X10*3/uL (4.8-10.8)
[2024-10-05 11:01] LABS: INTERNATIONAL NORM RATIO 0.9 (0.9-1.1); Prothrombin Time 10.5 SEC (10.9-12.4)
[2024-10-05 11:17] LABS: Anion Gap 13 (12-20); Blood Urea Nitrogen 20 mg/dL (9-16); Calcium 9.3 mg/dL (8.4-10.2); Carbon Dioxide 26 mmol/L (22-29); Chloride 108 mmol/L (96-108); Estimated Glomerular Filt Rate 50; Potassium 4.6 mmol/L (3.3-5.1); Sodium 142 mmol/L (135-145)
== END 2024-10-05 09:53 | disposition home or self-care (01) ==
LOC: HO.LAB 09:52
PROVIDERS: PCP Physician Assistant
DX: R94.39 Abnormal result of other cardiovascular function study (principal); R07.9 Chest pain, unspecified
CPT/HCPCS: 36415; 80048; 85027; 85610

== ENCOUNTER 2024-10-07 10:03 | Outpatient (AMB) | payer BC, SELFPAY ==
--- NOTE | 2024-10-07 10:12 | A.OFFPC_ITS ---
Vital Signs 10/07/24 10:16 10/07/24 10:22 Height 5 ft 7 in Weight 152 lb 6 oz BMI 23.9 BP 154/66 H 144/70 H Blood Pressure Location Lt brachial Lt brachial Position Sitting Sitting Respiration 14 Pulse 58 Pulse Source Pulse Oximeter Pulse Oximetry (%) 96 Oxygen Delivery Method Room Air Intake Visit Reasons: bp Intake Note: Blood pressure follow up Movie Stunt Performer Required: No Allergies No Known Allergies Allergy (Verified 10/07/24 10:14) Tobacco use date assessed: 10/07/24 Fall risk assessment: No Falls in past year Last assessed Fall Risk: 10/07/24 Dental Screening Dental Screen Date: 10/07/24 Did you have a dental visit in the last 12 months?: Yes Did you have a dental problem in the last 6 months where you did not have access to dental care?: No Was dental information given to patient?: Patient has dentist HPI bp HPI Details Patient is an 84-year-old female who presents today for a follow up. She is accompanied today by her daughter. Neuro: Was diagnosed with dementia and had a second opinion at [facility] (in [place]). She is currently on Aricept, recently increased on namenda. Amitriptyline appears to be effective for sleep, anxiety and headache prevention. Psych: Sleep is improved with the amitriptyline. She is still on the Lexapro 20 mg and feels that this is effective. CV: Blood pressure today in the office is 144/70. Blood pressures at home have been overall normal. She is currently on metoprolol 25 mg, amlodipine 5 mg. Cholesterol is controlled with Crestor 5 mg. She did recently undergo a stress test am it did look consistent with CAD. Patient and family opted for medication treatment initially but patient has been symptomatic with chest pain and shortness of breath. She has scheduled for cardiac catheterization next week. She was switched from losartan to metoprolol. She was also prescribed nitro to take as needed GI: Still experiences diarrhea on and off. Labs were overall reassuring. Had an appointment with GI in December. She is using the Imodium as needed. [facility] Medical History (Updated 08/10/24 @ 08:32 by KATLYN Gonzalez) Abnormal stress test Memory changes Vision changes IBS (irritable bowel syndrome) Incontinence High cholesterol HTN (hypertension) Surgical History H/O: hysterectomy Family History Maternal Grandfather FH: mental illness Mother High blood pressure High cholesterol Father High blood pressure High cholesterol Social History (Updated 10/07/24 @ 10:19 by Cha Gifford CMA) Housing: House Alcohol intake: current Patient Tobacco Use Status: Former Tobacco user (quit at 26 years old) Cigarette Packs Per Day: 0.5 Years Smoked: 10 e-Cigarette/Vaping Use: Never Used Second Hand Smoke Exposure: No service: No Current occupational status: retired Current occupational exposures/hazards: No Cognitive needs: No Hearing needs: No Vision needs: No Questionnaire Thrive Questionnaire Date Thrive assessed: 03/05/24 I am a: Patient What is your living situation today?: I have a steady place to live Within the past 12 months, did the food you bought not last and you didn't have the money to get more?: Never true Within the past 12 months, did you worry whether your food would run out before you got money to buy more?: Never true Do you have trouble paying for medicines?: No Do you have trouble getting transportation to medical appointments?: No Do you have trouble paying your heating and electricity bill?: No Do you have trouble taking care of your child, family member or friend?: No Do you have trouble with day-to-day activities such as bathing, preparing meals, shopping, managing finances, etc.?: No Are you currently unemployed and looking for a job?: No Are you interested in more education?: No Please select the resources that you would like help with: None Currently or been in a relationship where the following occur: No concerns reported THRIVE Score: 0 HERLINDA-7 AMB Questionnaire HERLINDA-7 Date HERLINDA - 7 assessed: 10/31/23 Source: Developed by Drs. Agustin Michaud, Sheela Black, Leoncio Tee and colleagues, with an educational dorene from [employer]. Physical exam (Primary Care) Vital Signs: Last Vital Signs Pulse 58 10/07/24 10:16 Resp 14 10/07/24 10:16 BP 144/70 H 10/07/24 10:22 Pulse Ox 96 10/07/24 10:16 Oxygen Delivery Method Room Air 10/07/24 10:16 BMI result Body Mass Index 23.9 Tobacco/Smoking Status: Tobacco use Status Tobacco use date assessed 10/07/24 10/07/24 10:19 Patient Tobacco Use Status Former Tobacco user (quit at 10/07/24 10:19 26 years old) e-Cigarette/Vaping Use Never Used 10/07/24 10:19 Thrive Assessment: Date of Thrive Assessment Date Thrive assessed 03/05/24 10/07/24 10:19 Currently or been in a relationship where the following occur: No concerns reported Const Orientation/consciousness: patient oriented x3 HENMT Ears: hearing grossly normal bilaterally Neck Thyroid: Thyroid normal Lymphatic: no lymphadenopathy noted Resp Auscultation: clear to auscultation bilaterally Cardio Rate: regular rate Rhythm: regular rhythm Heart sounds: S1 normal heart sound present and S2 normal heart sound present GI Inspection: Yes normal to inspection Palpation (GI): Soft to palpation and Other GI palpation findings present (nontender, no cva tenderness) Auscultation: normoactive bowel sounds Rectal Exam - Female: deferred Skin General skin exam: no rashes or lesions noted Neuro General: patient oriented x3, gait normal and no focal motor deficits Results Reviewed Results Reviewed: Laboratory Tests 06/03/24 10/05/24 10:57 10:08 WBC 6.8 RBC 4.16 L Hgb 12.5 Hct 38.1 Plt Count 270 Creatinine 1.06 Estimated GFR 50 Random Glucose 100 AST 29 ALT 22 Triglycerides 131 Cholesterol 163 LDL Cholesterol, Calc 80 HDL Cholesterol 57 Coding Level of Care Code Est Pt Level 4 (41486) Complex EM visit Add On G2211 Diagnoses Primary hypertension I10 Hypertension type: primary hypertension Abnormal stress test R94.39 Mixed hyperlipidemia E78.2 Hyperlipidemia type: mixed hyperlipidemia Assessment & Plan Assessment & Plan (1) HTN (hypertension): Code(s): I10 - Essential (primary) hypertension Category: Medical Qualifiers: Hypertension type: primary hypertension Qualified Code(s): I10 - Essential (primary) hypertension Plan: Elevated a bit above goal but states blood pressures are better at home. She is going to monitor. She does have an appointment next week with Cardiology (2) Abnormal stress test: Code(s): R94.39 - Abnormal result of other cardiovascular function study Category: Medical Plan: getting cardiac cath next week (3) Hyperlipidemia: Code(s): E78.5 - Hyperlipidemia, unspecified Category: Medical Qualifiers: Hyperlipidemia type: mixed hyperlipidemia Qualified Code(s): E78.2 - Mixed hyperlipidemia Plan: Last LDL was 80. I will recheck this and if still not less than 70 we will increase Crestor. Orders: Orders Comprehensive Met. Panel Today E78.2 - Mixed hyperlipidemia, I10 - Essential (primary) hypertension, R94.39 - Abnormal result of other cardiovascular function study Lipid Panel Today E78.2 - Mixed hyperlipidemia, I10 - Essential (primary) hypertension, R94.39 - Abnormal result of other cardiovascular function study TSH reflex Free T4 Today E78.2 - Mixed hyperlipidemia, I10 - Essential (primary) hypertension, R94.39 - Abnormal result of other cardiovascular function study Hemoglobin A1c Today E78.2 - Mixed hyperlipidemia, I10 - Essential (primary) hypertension, R73.01 - Impaired fasting glucose, R94.39 - Abnormal result of other cardiovascular function study
[2024-10-07 10:16] VITALS: BP 154/66; PULSE 58; RESP 14; O2SAT 96; BMI 23.9
[2024-10-07 10:22] VITALS: BP 144/70
--- OUTSIDE RECORDS SUMMARY | 2024-10-07 10:36 | XMS_ITS | Clinical Summary ---
Author Organization [facility] Address [address] [place] [phone] Phone Care Team Providers Care Medicaid Service Coordinator Name Role Phone Eladia Haji Primary Care Provider +1- [phone] Allergies No known active allergies Medications amLODIPine [...] Description 09/25/2024 10:30 AM EDT Office Visit [facility] Neurology [address] [place] [address] Tima Salazar MD Mixed dementia (Primary Dx) 08/25/2024 Refill [facility] Neurology [address] [place] [address] Tima Salazar MD Medication Refill from Last [...] Description 07/01/2025 10:30 AM EDT Office Visit [facility] Neurology [address] [place] [address] Tima Salazar MD [address] [place] [address], [address] [place] [address] [email or web address] Health Maintenance Due Date Last Done Comments [...] [place] MED[place]UE REPLACEMENT Care Teams Medicaid Service Coordinator Relationship Specialty Start Date End Date Eladia Haji PA [address] [address] PCP - General Physician Customer Care Professional 11/11/23 Additional Source Comments The information contained in this document represents components of the legal health record. It is not the complete legal health record.[facility]
== END 2024-10-07 10:44 | disposition home or self-care (01) ==
LOC: HO.HMCFM 10:04
PROVIDERS: PCP Physician Assistant; Visit Provider Physician Assistant
DX: I10 Essential (primary) hypertension (principal); R94.39 Abnormal result of other cardiovascular function study; E78.2 Mixed hyperlipidemia

== ENCOUNTER → 2024-10-22 23:59 | Outpatient (BNV) | payer BC, SELFPAY | PROVIDERS: PCP Physician Assistant; Visit Provider Internal Medicine Cardiovascular Disease | DX: I20.89 Other forms of angina pectoris (principal) | CPT/HCPCS: 93458; 93571; 99152 ==

== ENCOUNTER 2024-11-05 13:35 | Outpatient (AMB) | payer BC, SELFPAY ==
--- NOTE | 2024-11-05 13:40 | MHC.OFFVIS ---
Vital Signs 11/05/24 13:42 Height 5 ft 7 in Weight 152 lb 8.958 oz BMI 23.9 BP 102/50 L Blood Pressure Location Lt brachial Position Sitting Pulse 62 Pulse Source Pulse Oximeter Intake Visit Reasons: Follow up post cardiac cath Accompanied by: Daughter Allergies No Known Allergies Allergy (Verified 11/05/24 13:47) Medication List - Last Reconciled 11/05/24 by Kyler Gates NP albuterol sulfate 90 mcg/actuation 2 puffs inhalation Q6H PRN amitriptyline 10 mg PO BEDTIME PRN amlodipine 5 mg PO DAILY aspirin (Adult Aspirin Regimen) 81 mg PO DAILY cetirizine (Zyrtec) 10 mg PO DAILY PRN donepezil 10 mg PO DAILY memantine 7 mg PO DAILY metoprolol succinate ER (Toprol XL) 25 mg PO DAILY nitroglycerin 0.4 mg sublingual Q5M PRN rosuvastatin 5 mg PO DAILY HPI Comments Details: This is an 84-year-old female patient coming in for a follow-up visit status post cardiac catheterization. Patient with a history of hypertension and dyslipidemia who had chest discomfort and underwent echo that showed basal inferior inferolateral wall motion abnormalities and underwent a nuclear perfusion imaging that showed apical perfusion defect. Given ongoing symptoms, patient underwent a cardiac catheterization with Dr. Sotelo on 10/22/2024. Today, patient is reporting ongoing exertional chest discomfort accompanied with some shortness of breath and dizziness. Patient's son who is a nurse is also here for the visit and noticed that patient has been having some low blood pressures at home. Patient is otherwise denying any orthopnea, PND, leg edema, presyncope or syncope. Patient is reporting compliance with all her medications. [facility] Medical History Abnormal stress test Memory changes Vision changes IBS (irritable bowel syndrome) Incontinence High cholesterol HTN (hypertension) Surgical History H/O: hysterectomy Family History Maternal Grandfather FH: mental illness Mother High blood pressure High cholesterol Father High blood pressure High cholesterol Social History Housing: House Alcohol intake: current Patient Tobacco Use Status: Former Tobacco user (quit at 26 years old) Cigarette Packs Per Day: 0.5 Years Smoked: 10 e-Cigarette/Vaping Use: Never Used Second Hand Smoke Exposure: No service: No Current occupational status: retired Current occupational exposures/hazards: No Cognitive needs: No Hearing needs: No Vision needs: No Review of Systems Const Denies daytime sleepiness, Denies difficulty sleeping, Denies snoring, Denies stops breathing during sleep and Denies weakness Card Denies chest pain, Denies rapid heart rate, Denies irregular heart rhythm, Denies claudication, Denies leg edema, Reports lightheadedness, Denies palpitations, Denies dyspnea, Reports dyspnea on exertion, Denies orthopnea, Denies paroxysmal nocturnal dyspnea and Denies slow heart rate Resp Denies cough, Denies dyspnea, Reports dyspnea on exertion and Denies snoring GI Reports no additional complaints, Denies hematochezia, Denies change in stool character and Denies dyspepsia Musc Denies abnormal gait, Denies muscle weakness and Denies numbness Neuro Denies abnormal gait, Denies numbness and Denies weakness Endo Denies palpitations Physical Exam Vital Signs: Last Vital Signs Pulse 62 11/05/24 13:42 BP 102/50 L 11/05/24 13:42 BMI result Body Mass Index 23.9 Const General: cooperative, healthy appearing, comfortable and no acute distress Orientation/consciousness: patient oriented x3 HEENT Head: Yes normal to inspection Neck Neck: Yes normal visual inspection, Yes trachea midline and Yes supple Chest Chest palpation & inspection: normal inspection of the chest Resp Effort & Inspection: normal respiratory effort Auscultation: clear to auscultation bilaterally, no crackles, no rales, no rhonchi and no wheezes Cardio Jugular venous distension: no JVD Palpation: normal PMI Rate: regular rate Rhythm: regular rhythm Heart sounds: S1 normal heart sound present, S2 normal heart sound present, no click, no gallops, no murmurs and no rubs Peripheral pulses: Peripheral pulses 2+ throughout GI Inspection: Yes normal to inspection Palpation (GI): Soft to palpation Auscultation: normal bowel sounds Skin General skin exam: no rashes or lesions noted Neuro General: patient oriented x3 Extrem General: Yes normal to inspection, No no pedal edema and No calf tenderness Psych Appearance: grossly normal Mental Status: mental status grossly normal Speech and movement: Normal speech and movement present Assessment & Plan Assessment & Plan (1) Status post cardiac catheterization: Code(s): Z98.890 - Other specified postprocedural states Category: Surgical Plan: 06/30/2024-echo study showed a normal LV systolic function with an ejection fraction at 60% with hypokinetic basal inferior and basal inferolateral segments. 08/07/2024-myocardial perfusion study showed small area of mild intensity ischemia in the distal LAD territory. 10/22/2024- patient underwent cardiac catheterization with Dr. Sotelo at [facility] that showed 50% stenosis in the ostial RCA with an IFR at 0.98 otherwise normal coronary arteries. Given above findings, reassurance provided however given her ongoing exertional symptoms, we will trial patient with the antianginal Imdur in addition to the metoprolol. Patient's blood pressure today is under low-normal side. Patient states that blood pressures at home has been similar to this. Patient is on amlodipine 5 mg and losartan 50 mg for hypertension. Patient's dizziness could be likely due to low blood pressures, therefore, we will discontinue losartan and reduce amlodipine to 2.5 mg. Advised monitoring blood pressures at home with a goal less than 130/80. Offered follow-up for a blood pressure check however, patient's son is a nurse and they offered to monitor this at home and communicate via portal. Continue statin therapy with an LDL goal less than 70. Right wrist catheterization site is well healed. (2) Chest pain: Code(s): R07.9 - Chest pain, unspecified Category: Medical Plan: As above (3) MOREL (dyspnea on exertion): Code(s): R06.09 - Other forms of dyspnea Category: Medical Plan: As above. (4) HTN (hypertension): Code(s): I10 - Essential (primary) hypertension Category: Medical Qualifiers: Hypertension type: primary hypertension Qualified Code(s): I10 - Essential (primary) hypertension Plan: As above. (5) Hyperlipidemia: Code(s): E78.5 - Hyperlipidemia, unspecified Category: Medical Qualifiers: Hyperlipidemia type: mixed hyperlipidemia Qualified Code(s): E78.2 - Mixed hyperlipidemia Plan: As above. Advised heart healthy diet, regular exercise, med compliance, and management of vascular risk factors. Follow up in 3 months. In the interim, patient will call the office with any concerns or change in symptoms. Patient we will have her son communicate via portal for blood pressures. Advised to seek ER care in case of exertional chest pain not resolved with rest. This note was generated using voice recognition software. While every effort has been made to ensure accuracy and proper residential green building designer, there may be occasional errors that could affect the content or meaning of the described symptoms. Medications: New isosorbide mononitrate ER 30 mg PO DAILY 30 tabs 0RF Changed From amlodipine 5 mg PO DAILY 90 tabs 3RF To amlodipine 2.5 mg (1/2 x 5 mg) PO DAILY 90 tabs 3RF Coding Level of Care Code Est Pt Level 4 (65326) Complex EM visit Add On G2211 Diagnoses Status post cardiac catheterization Z98.890 Chest pain R07.9 MOREL (dyspnea on exertion) R06.09 Primary hypertension I10 Hypertension type: primary hypertension Mixed hyperlipidemia E78.2 Hyperlipidemia type: mixed hyperlipidemia Time Spent (min) 33 Comment Time spent in reviewing the chart, test results, assessment, counseling and documentation.
[2024-11-05 13:42] VITALS: BP 102/50; PULSE 62; BMI 23.9
--- OUTSIDE RECORDS SUMMARY | 2024-11-05 14:51 | XMS_ITS | Clinical Summary ---
Author Organization [facility] Address [address] [place] [phone] Phone Care Team Providers Care Package Lift Operator Name Role Phone Eladia Haji Primary Care Provider +1- [phone] Allergies No known active allergies Medications amLODIPine [...] total) by mouth daily. 90 capsule 1 09/25/2024 Active Encounters Date Type Department Care Team Description 09/25/2024 10:30 AM EDT Office Visit [facility] Neurology [address] [place] [address] [place] [address] Tima Salazar MD Mixed dementia (Primary Dx) 08/25/2024 Refill [facility] Neurology [address] [place] [address] Tima Salazar MD Medication Refill from Last [...] Description 07/01/2025 10:30 AM EDT Office Visit [facility] Neurology [address] [place] [address] Tima Salazar MD [address] [place] [address], [address] [place] [address] [email or web address] Health Maintenance Due Date Last Done Comments CREATININE LEVEL 1941 POTASSIUM LEVEL 1941 DEPRESSION SCREENING 1953 PNEUMOCOCCAL VACCINES (50+ y ears) (1 of 1 - PCV) 07/14/1991 ZOSTER VACCINES (1 of 2) 07/14/1991 OSTEOPOROSIS SCREENING INITI AL (ONE-TIME) 2006 RSV VACCINE (1 - 1-dose 75+ series) 2016 Adult Td,Tdap Booster 02/17/2023 02/17/2013 COVID-19 VACCINE (2023-2 5 season) 2023 HEPATITIS A VACCINES Aged [...] topic Medical Devices Not on file Insurance [place] P[place] BLUE REPLACEMENT MEDICARE PPO BLUE REPLACEMENT MEDICARE PPO BLUE REPLACEMENT MEDICARE [place]AC[place] Care Teams Package Lift Operator Relationship Specialty Start Date End Date Eladia Haji PA PCP - General Physician Lead Housekeeper 11/11/23 Additional Source Comments The information contained in this document represents components of the legal health record. It is not the complete legal health record.[facility]
== END 2024-11-05 14:14 | disposition home or self-care (01) ==
LOC: HO.HCS 13:36
PROVIDERS: PCP Physician Assistant
DX: Z98.890 Other specified postprocedural states (principal); R07.9 Chest pain, unspecified; R06.09 Other forms of dyspnea; I10 Essential (primary) hypertension; E78.2 Mixed hyperlipidemia
CPT/HCPCS: 99214

== ENCOUNTER 2024-12-03 12:43 | Outpatient (AMB) | payer BC, SELFPAY ==
--- NOTE | 2024-12-03 12:50 | MHC.PC.OV ---
Vital Signs 12/03/24 12:56 Height 5 ft 7 in Weight 154 lb 4 oz BMI 24.2 BP 118/68 Blood Pressure Location Lt brachial Position Sitting Respiration 14 Pulse 68 Pulse Source Pulse Oximeter Pulse Oximetry (%) 98 Oxygen Delivery Method Room Air Intake Visit Reasons: follow up meds /bp Intake Note: Follow up. Survey Associate stopped the Amlodipine about 3 weeks ago, due to starting Isosorbide. Fine Grade Bulldozer Operator Required: No Allergies No Known Allergies Allergy (Verified 12/03/24 12:53) Medication List - Last Reconciled 12/03/24 by Eladia Haji PA-C albuterol sulfate 90 mcg/actuation 2 puffs inhalation Q6H PRN amitriptyline 10 mg PO BEDTIME PRN aspirin (Adult Aspirin Regimen) 81 mg PO DAILY cetirizine (Zyrtec) 10 mg PO DAILY PRN donepezil 10 mg PO DAILY isosorbide mononitrate ER 30 mg PO DAILY memantine 14 mg PO DAILY memantine 7 mg PO DAILY metoprolol succinate ER (Toprol XL) 25 mg PO DAILY nitroglycerin 0.4 mg sublingual Q5M PRN rosuvastatin 5 mg PO DAILY Tobacco use date assessed: 12/03/24 Fall risk assessment: No Falls in past year Last assessed Fall Risk: 12/03/24 Dental Screening Dental Screen Date: 10/07/24 HPI follow up meds /bp HPI Details Patient is an 84-year-old female who presents today for a follow up. She is accompanied today by her son. Neuro: Was diagnosed with dementia and had a second opinion at [facility] (in [place]). She is currently on Aricept, recently increased on namenda. Amitriptyline appears to be effective for sleep, anxiety and headache prevention. Psych: Sleep is improved with the amitriptyline. She is still on the Lexapro 20 mg and feels that this is effective. CV: Blood pressure today in the office is 118/68. She is currently on metoprolol 25 mg, imdur 30 mg. Cholesterol is controlled with Crestor 5 mg. CP is better with imdur but not fully resolved. gets it at night sometimes. usually now without exertion. Sometimes will still have MOREL which is improved with albuterol. Has not yet had cxr. does not want to see pulm or have pfts. GI: Still experiences diarrhea on and off. Labs were overall reassuring. Had an appointment with GI in December. She is using the Imodium as needed. [facility] Medical History Abnormal stress test Memory changes Vision changes IBS (irritable bowel syndrome) Incontinence High cholesterol HTN (hypertension) Surgical History H/O: hysterectomy Family History Maternal Grandfather FH: mental illness Mother High blood pressure High cholesterol Father High blood pressure High cholesterol Social History Housing: House Alcohol intake: current Patient Tobacco Use Status: Former Tobacco user (quit at 26 years old) Cigarette Packs Per Day: 0.5 Years Smoked: 10 e-Cigarette/Vaping Use: Never Used Second Hand Smoke Exposure: No service: No Current occupational status: retired Current occupational exposures/hazards: No Cognitive needs: No Hearing needs: No Vision needs: No Questionnaire Thrive Questionnaire Date Thrive assessed: 03/05/24 I am a: Patient What is your living situation today?: I have a steady place to live Within the past 12 months, did the food you bought not last and you didn't have the money to get more?: Never true Within the past 12 months, did you worry whether your food would run out before you got money to buy more?: Never true Do you have trouble paying for medicines?: No Do you have trouble getting transportation to medical appointments?: No Do you have trouble paying your heating and electricity bill?: No Do you have trouble taking care of your child, family member or friend?: No Do you have trouble with day-to-day activities such as bathing, preparing meals, shopping, managing finances, etc.?: No Are you currently unemployed and looking for a job?: No Are you interested in more education?: No Please select the resources that you would like help with: None Currently or been in a relationship where the following occur: No concerns reported THRIVE Score: 0 HERLINDA-7 AMB Questionnaire HERLINDA-7 Date HERLINDA - 7 assessed: 10/31/23 Source: Developed by Drs. Agustin Michaud, Sheela Black, Leoncio Tee and colleagues, with an educational dorene from [employer]. Physical exam (Primary Care) Vital Signs: Last Vital Signs Pulse 68 12/03/24 12:56 Resp 14 12/03/24 12:56 BP 118/68 12/03/24 12:56 Pulse Ox 98 12/03/24 12:56 Oxygen Delivery Method Room Air 12/03/24 12:56 BMI result Body Mass Index 24.2 Tobacco/Smoking Status: Tobacco use Status Tobacco use date assessed 12/03/24 12/03/24 12:59 Patient Tobacco Use Status Former Tobacco user (quit at 12/03/24 12:51 26 years old) e-Cigarette/Vaping Use Never Used 12/03/24 12:51 Thrive Assessment: Date of Thrive Assessment Date Thrive assessed 03/05/24 12/03/24 12:51 Currently or been in a relationship where the following occur: No concerns reported Const Orientation/consciousness: patient oriented x3 HENMT Ears: hearing grossly normal bilaterally Neck Thyroid: Thyroid normal Lymphatic: no lymphadenopathy noted Resp Auscultation: clear to auscultation bilaterally Cardio Rate: regular rate Rhythm: regular rhythm Heart sounds: S1 normal heart sound present and S2 normal heart sound present GI Inspection: Yes normal to inspection Palpation (GI): Soft to palpation and Other GI palpation findings present (nontender, no cva tenderness) Auscultation: normoactive bowel sounds Rectal Exam - Female: deferred Skin General skin exam: no rashes or lesions noted Neuro General: patient oriented x3, gait normal and no focal motor deficits Office Procedures Flu Questionnaire Does the patient have a severe egg allergy?: No Does the patient have severe life threatening allergies?: No Does the patient have a fever or illness today?: No Has the patient ever had Guillain-[place] Syndrome?: No Has the patient ever had any past reaction to a flu shot?: No Immunizations Fluarix [id number] (PF) 45 mcg (15 mcg x 3)/0.5 mL IM syringe Performing Provider: Eladia Haji PA-C Performing Location: [facility] Family Medicine Documented (not given) by: Cha Gifford CMA on 12/03/24 14:10 Reason Not Given: Patient Refused Coding Level of Care Code Est Pt Level 4 (71267) Complex EM visit Add On G2211 Diagnoses Primary hypertension I10 Hypertension type: primary hypertension Mixed hyperlipidemia E78.2 Hyperlipidemia type: mixed hyperlipidemia MOREL (dyspnea on exertion) R06.09 Assessment & Plan Assessment & Plan (1) HTN (hypertension): Code(s): I10 - Essential (primary) hypertension Category: Medical Qualifiers: Hypertension type: primary hypertension Qualified Code(s): I10 - Essential (primary) hypertension Plan: wnl continue current plan (2) Hyperlipidemia: Code(s): E78.5 - Hyperlipidemia, unspecified Category: Medical Qualifiers: Hyperlipidemia type: mixed hyperlipidemia Qualified Code(s): E78.2 - Mixed hyperlipidemia Plan: will monitor (3) MOREL (dyspnea on exertion): Code(s): R06.09 - Other forms of dyspnea Category: Medical Plan: cxr ordered again- advised to complete will trial omeprazole for cp at night to see if it resolves continue with management plan by cards f/u 3-4 months or sooner if needed labs prior to appointment flu shot today Orders: Orders XR chest 2V Today R06.09 - Other forms of dyspnea Influenza [id number] Immunization Today Z23 - Encounter for immunization
[2024-12-03 12:56] VITALS: BP 118/68; PULSE 68; RESP 14; O2SAT 98; BMI 24.2
--- OUTSIDE RECORDS SUMMARY | 2024-12-03 14:15 | XMS_ITS | Clinical Summary ---
Author Organization [facility] Address [address] [place] [id number] Phone Care Team Providers Care Business Systems Administrator Name Role Phone Eladia Haji Primary Care Provider [phone] Allergies No known active allergies Medications amLODIPine [...] Description 09/25/2024 10:30 AM EDT Office Visit [facility] Neurology [address] [place] [address] Tima Salazar MD Mixed dementia (Primary Dx) from Last 3 Months Social History Tobacco [...] Description 07/01/2025 10:30 AM EDT Office Visit [facility] Neurology [address] [place] [id number] Tima Salazar MD [address] [place] [address], [address] [place] [address] [email or web address] Health Maintenance Due Date Last Done Comments CREATININE LEVEL 1941 POTASSIUM LEVEL 1941 DEPRESSION SCREENING 1953 PNEUMOCOCCAL VACCINES (50+ y ears) (1 of 1 - PCV) 07/14/1991 ZOSTER VACCINES (1 of 2) 07/14/1991 OSTEOPOROSIS SCREENING INITI AL (ONE-TIME) 2006 RSV VACCINE (1 - 1-dose 75+ series) 2016 Adult Td,Tdap Booster 02/17/2023 02/17/2013 INFLUENZA VACCINE (#1) 2024 COVID-19 VACCINE (2023-2 5 season) 2024 HEPATITIS A VACCINES Aged Out No long [...] topic Medical Devices Not on file Insurance Care Teams Business Systems Administrator Relationship Specialty Start Date End Date Eladia Haji PA [address] [place] [id number] PCP - General Physician Insurance And Financial Services Agent 11/11/23 Additional Source Comments The information contained in this document represents components of the legal health record. It is not the complete legal health record.[facility]
== END 2024-12-03 13:44 | disposition home or self-care (01) ==
LOC: HO.HMCFM 12:44
PROVIDERS: PCP Physician Assistant; Visit Provider Physician Assistant
DX: I10 Essential (primary) hypertension (principal); E78.2 Mixed hyperlipidemia; R06.09 Other forms of dyspnea; Z23 Encounter for immunization

== ENCOUNTER → 2024-12-03 12:43 | Outpatient (BNVA) | payer BC, SELFPAY | PROVIDERS: PCP Physician Assistant; Visit Provider Physician Assistant | DX: Z28.82 Immunization not carried out because of caregiver refusal (principal); I10 Essential (primary) hypertension; R06.09 Other forms of dyspnea | CPT/HCPCS: 90471 ==

== ENCOUNTER 2025-02-10 10:05 | Outpatient (AMB) | payer BC, SELFPAY ==
[2025-02-10 10:11] VITALS: BP 118/66; PULSE 57; RESP 14; O2SAT 97; BMI 23.6
--- NOTE | 2025-02-10 10:11 | MHC.PC.OV ---
Vital Signs 02/10/25 10:11 Height 5 ft 7 in Weight 150 lb 8 oz BMI 23.6 BP 118/66 Blood Pressure Location Lt brachial Position Sitting Respiration 14 Pulse 57 Pulse Source Pulse Oximeter Pulse Oximetry (%) 97 Oxygen Delivery Method Room Air Intake Visit Reasons: 4 month meds bp - see comments Intake Note: Four month follow up Data Security Coordinator Required: No Accompanied by: Son Allergies No Known Allergies Allergy (Verified 02/10/25 10:16) Medication List - Last Reconciled 02/10/25 by Eladia Haji PA-C albuterol sulfate 90 mcg/actuation 2 puffs inhalation Q6H PRN amitriptyline 10 mg PO BEDTIME PRN aspirin (Adult Aspirin Regimen) 81 mg PO DAILY cetirizine (Zyrtec) 10 mg PO DAILY PRN donepezil 10 mg PO DAILY isosorbide mononitrate ER 30 mg PO DAILY memantine 14 mg PO DAILY memantine 7 mg PO DAILY metoprolol succinate ER (Toprol XL) 12.5 mg (1/2 x 25 mg) PO DAILY 90 days nitroglycerin 0.4 mg sublingual Q5M PRN rosuvastatin 5 mg PO DAILY Tobacco use date assessed: 02/10/25 Fall risk assessment: No Falls in past year Last assessed Fall Risk: 02/10/25 Dental Screening Dental Screen Date: 10/07/24 HPI 4 month meds bp - see comments HPI Details Patient is an 84-year-old female who presents today for a follow up. She is accompanied today by her son. Overall feeling well. Derm: She does complain today of a patch of red, raised, rough skin on the anterior aspect of the right forearm. No new products. She has tried calamine lotion which is intermittently helpful for the itch but has not resolved the rash. No fevers or chills. Neuro: Was diagnosed with dementia and had a second opinion at [facility] (in [place]). She is currently on Aricept, recently increased on namenda. Amitriptyline appears to be effective for sleep, anxiety and headache prevention. Psych: Sleep is improved with the amitriptyline. She is still on the Lexapro 20 mg and feels that this is effective. CV: Blood pressure today in the office is 118/66. Blood pressures at home have run a little bit on the lower side. She is currently on metoprolol 25 mg, imdur 30 mg. Cholesterol is controlled with Crestor 5 mg. CP is better with imdur but not fully resolved. gets it at night sometimes. usually now without exertion. Sometimes will still have MOREL which is improved with albuterol. Has not yet had cxr. does not want to see pulm or have pfts. GI: Still experiences diarrhea on and off. Labs were overall reassuring. Had an appointment with GI in December. She is using the Imodium as needed. [facility] Medical History Abnormal stress test Memory changes Vision changes IBS (irritable bowel syndrome) Incontinence High cholesterol HTN (hypertension) Surgical History H/O: hysterectomy Family History Maternal Grandfather FH: mental illness Mother High blood pressure High cholesterol Father High blood pressure High cholesterol Social History (Updated 02/10/25 @ 10:17 by Cha Gifford CMA) Housing: House Alcohol intake: current Patient Tobacco Use Status: Former Tobacco user (quit at 26 years old) Cigarette Packs Per Day: 0.5 Years Smoked: 10 e-Cigarette/Vaping Use: Never Used Second Hand Smoke Exposure: No service: No Current occupational status: retired Current occupational exposures/hazards: No Cognitive needs: No Hearing needs: No Vision needs: No Questionnaire Thrive Questionnaire Date Thrive assessed: 03/05/24 I am a: Patient What is your living situation today?: I have a steady place to live Within the past 12 months, did the food you bought not last and you didn't have the money to get more?: Never true Within the past 12 months, did you worry whether your food would run out before you got money to buy more?: Never true Do you have trouble paying for medicines?: No Do you have trouble getting transportation to medical appointments?: No Do you have trouble paying your heating and electricity bill?: No Do you have trouble taking care of your child, family member or friend?: No Do you have trouble with day-to-day activities such as bathing, preparing meals, shopping, managing finances, etc.?: No Are you currently unemployed and looking for a job?: No Are you interested in more education?: No Please select the resources that you would like help with: None Currently or been in a relationship where the following occur: No concerns reported THRIVE Score: 0 AUDIT C Alcohol Use Questionnaire (AUDIT-C) 1. How often do you have a drink containing alcohol?: Monthly or less 2. How many drinks containing alcohol do you have on a typical day when you are drinking?: 1 or 2 3. How often do you have six or more drinks on one occasion?: Never Total Score: 1 HERLINDA-7 AMB Questionnaire HERLINDA-7 Date HERLINDA - 7 assessed: 10/31/23 Source: Developed by Drs. Agustin Michaud, Sheela Black, Leoncio Tee and colleagues, with an educational dorene from [employer]. Physical exam (Primary Care) Vital Signs: Last Vital Signs Pulse 57 02/10/25 10:11 Resp 14 02/10/25 10:11 BP 118/66 02/10/25 10:11 Pulse Ox 97 02/10/25 10:11 Oxygen Delivery Method Room Air 02/10/25 10:11 BMI result Body Mass Index 23.6 Tobacco/Smoking Status: Tobacco use Status Tobacco use date assessed 02/10/25 02/10/25 10:19 Patient Tobacco Use Status Former Tobacco user (quit at 02/10/25 10:19 26 years old) e-Cigarette/Vaping Use Never Used 02/10/25 10:19 Thrive Assessment: Date of Thrive Assessment Date Thrive assessed 03/05/24 02/10/25 10:19 Currently or been in a relationship where the following occur: No concerns reported Const Orientation/consciousness: patient oriented x3 HENMT Ears: hearing grossly normal bilaterally Neck Thyroid: Thyroid normal Lymphatic: no lymphadenopathy noted Resp Auscultation: clear to auscultation bilaterally Cardio Rate: regular rate Rhythm: regular rhythm Heart sounds: S1 normal heart sound present and S2 normal heart sound present GI Inspection: Yes normal to inspection Palpation (GI): Soft to palpation and Other GI palpation findings present (nontender, no cva tenderness) Auscultation: normoactive bowel sounds Rectal Exam - Female: deferred Skin Other: There is a rough, patch of skin noted that is approximately 4 cm x 2 cm on the anterior aspect of the right upper extremity. It is slightly papular with areas of excoriations. Neuro General: patient oriented x3, gait normal and no focal motor deficits Office Procedures Flu Questionnaire Does the patient have a severe egg allergy?: No Does the patient have severe life threatening allergies?: No Does the patient have a fever or illness today?: No Has the patient ever had Guillain-[place] Syndrome?: No Has the patient ever had any past reaction to a flu shot?: No Immunizations Fluarix [id number] (PF) 45 mcg (15 mcg x 3)/0.5 mL IM syringe Performing Provider: Eladia Haji PA-C Performing Location: [facility] Family Medicine Administered by: Cha Gifford CMA on 02/10/25 11:27 Dose Route Admin Location Dispensed Lot Number Expiration Date [facility] Needle Grader 0.5 mL IM Left Deltoid 0.5 mL [id number] 08/31/25 [id number] [employer] VIS Given Date VIS Provided VIS Publication Date 02/10/25 Single Vaccine 24 Eligibility Eligibility Date Funding Source Not [facility] Eligible 02/10/25 Private Coding Level of Care Code Est Pt Level 4 (55058) Add On Problem Visit Only Diagnoses Mild dementia without behavioral disturbance, psychotic disturbance, mood disturbance, or anxiety, unspecified dementia type F03.A0 Dementia type: unspecified type Dementia severity: mild Dementia behavioral or psychological symptom: without behavioral, psychotic, or mood disturbance or anxiety Primary hypertension I10 Hypertension type: primary hypertension Anxiety with depression F41.8 Atopic dermatitis L20.9 Assessment & Plan Assessment & Plan (1) Dementia: Code(s): F03.90 - Unspecified dementia, unspecified severity, without behavioral disturbance, psychotic disturbance, mood disturbance, and anxiety Category: Medical Qualifiers: Dementia type: unspecified type Dementia severity: mild Dementia behavioral or psychological symptom: without behavioral, psychotic, or mood disturbance or anxiety Qualified Code(s): F03.A0 - Unspecified dementia, mild, without behavioral disturbance, psychotic disturbance, mood disturbance, and anxiety Plan: Stable (2) HTN (hypertension): Code(s): I10 - Essential (primary) hypertension Category: Medical Qualifiers: Hypertension type: primary hypertension Qualified Code(s): I10 - Essential (primary) hypertension Plan: We will reduce metoprolol to 12.5 mg Continue Imdur (3) Anxiety with depression: Code(s): F41.8 - Other specified anxiety disorders Category: Medical Plan: Well-controlled. Continue current regimen (4) Atopic dermatitis: Code(s): L20.9 - Atopic dermatitis, unspecified Category: Medical Plan: We will treat with triamcinolone cream. Discussed risks and benefits and adverse effects of this medication. Follow up if no improvement or if anything worsens or changes. Patient understands and agrees with the plan. Orders: Orders Influenza [id number] Immunization 02/10/25 Z23 - Encounter for immunization Medications: New triamcinolone acetonide 0.5% 1 appl topical BID 15 grams 2RF 14 days Changed From metoprolol succinate ER (Toprol XL) 25 mg PO DAILY 90 tabs 1RF To metoprolol succinate ER (Toprol XL) 12.5 mg (1/2 x 25 mg) PO DAILY 45 tabs 1RF 90 days
== END 2025-02-10 12:14 | disposition home or self-care (01) ==
LOC: HO.HMCFM 10:06
PROVIDERS: PCP Physician Assistant; Visit Provider Physician Assistant
DX: Z23 Encounter for immunization (principal)

== ENCOUNTER → 2025-02-10 10:05 | Outpatient (BNVA) | payer BC, SELFPAY | PROVIDERS: PCP Physician Assistant; Visit Provider Physician Assistant | DX: Z23 Encounter for immunization (principal) | CPT/HCPCS: 90471; 90656 ==